=== PATIENT | male | born 1965 | race Hispanic/Latino ===

== ENCOUNTER 2019-01-12 23:48 | Inpatient (IN) | payer OTHER ==
[2019-01-13] MEDS ORDERED: Acetaminophen 500 MG TAB ONE (00:06)
[2019-01-13] MEDS ORDERED: Piperacillin/Tazobactam 4.5 GM VIAL ONE (00:37)
[2019-01-13 00:56] LABS: ALT (SGPT) 28 U/L (8-55); AST (SGOT) 43 U/L (5-34); Albumin 2.7 g/dL (3.5-5.0); Alkaline Phosphatase 117 U/L (40-110); Anion Gap 14 mmol/L (10-20); BUN (Urea Nitrogen) 31 mg/dL (8.4-25.7); Bilirubin, Total 1.8 mg/dL (0.2-1.2); Calc. Creatinine Clearance 0 mL/min (70-130); Calcium 7.1 mg/dL (7.8-10.44); Carbon Dioxide 17 mmol/L (22-29); Chloride 91 mmol/L (98-107); Estimated GFR-MDRD 68; Globulin 3.1 g/dL (2.4-3.5); Glucose 376 mg/dL (70-105); Potassium 4.1 mmol/L (3.5-5.1); Protein, Total 5.8 g/dL (6.0-8.3)
[2019-01-13 01:00] LABS: Sodium 118 mmol/L (136-145)
[2019-01-13 01:04] LABS: Hemoglobin 10.2 g/dL (14.0-18.0); Mean Corpuscular Volume 82.7 fL (78.0-98.0); Red Blood Cell (RBC) Count 3.67 mill/uL (4.70-6.10); White Blood Cell (WBC) Count 4.9 thou/uL (4.8-10.8)
[2019-01-13 01:18] LABS: #Lymphocytes 0.1 thou/uL (1.20-3.40); #Monocytes 0.4 thou/uL (0.11-0.59); #Neutrophils 4.4 thou/uL (1.40-6.50); %Basophils 0.1 % (0.0-1.0); %Eosinophils 0.2 % (0.0-10.0); %Lymphocytes 2.8 % (21.0-51.0); %Monocytes 7.5 % (0.0-10.0); %Neutrophils 89.4 % (42.0-75.0); Mean Corpuscular HGB CONC 33.5 g/dL (32.0-36.0); Mean Corpuscular Hemoglobin 27.7 pg (27.0-31.0); Mean Platelet Volume 11.6 fL (7.4-10.4); Platelet Count 32 thou/uL (130-400); Platelet Morphology Comment Appears Decreased; RBC Distribution Width 15.3 % (11.5-14.5)
[2019-01-13 01:51] LABS: Bacteria/HPF None Seen HPF (None Seen); Bilirubin Negative (Negative); Blood, Urine 2+ (Negative); Clarity Clear (Clear); Glucose, Urine (Dipstick) Greater than 1000 mg/dL (Negative); Leukocyte 500 Leu/uL (Negative); Nitrite Negative (Negative); Protein, Urine (Dipstick) Negative (Neg-Trace); RBC/HPF 0-3 HPF (0-3); Squamous Epithelial None Seen HPF (0-3); Urobilinogen Normal mg/dL (Less than 2); WBC/HPF Greater than 50 HPF (0-3)
[2019-01-13] MEDS ORDERED: Dextrose 5% in Water 1,000 ML IV PRN (04:12)
[2019-01-13] MEDS ORDERED: Dextrose 50% Abboject 50 ML SYRINGE SLOW IVP PRN (04:12)
[2019-01-13 05:01] LABS: Hemoglobin A1c 10.7 % (4.0-6.0)
[2019-01-13] MEDS ORDERED: HumaLOG 300 UNITS/3 ML VIAL ONE (05:04)
[2019-01-13 05:06] LABS: Anion Gap 11 mmol/L (10-20); BUN (Urea Nitrogen) 26 mg/dL (8.4-25.7); Calc. Creatinine Clearance 0 mL/min (70-130); Carbon Dioxide 18 mmol/L (22-29); Chloride 96 mmol/L (98-107); Estimated GFR-MDRD 76; Glucose 346 mg/dL (70-105); Potassium 3.9 mmol/L (3.5-5.1); Sodium 121 mmol/L (136-145)
[2019-01-13] MEDS ORDERED: HumaLOG 300 UNITS/3 ML VIAL SC SCH (05:30)
--- NOTE | 2019-01-13 06:20 | HP ---
CHIEF COMPLAINT: Multiple complaints, right hip pain, fevers and chills. HISTORY OF PRESENT ILLNESS: The patient is a 53-year-old male, with a history of liver cancer, in current treatment with metastasis to the lung, diabetes who presents to the hospital with multiple complaints. The patient states that for the past 6 months to 7 months his blood sugars have been out of control. He furthermore states that he has not been eating very much and losing a lot of weight, because he is afraid that if he eats his sugars will continue to rise. The patient stated that couple days ago, he was trying to exercise so that his sugars would improve. He stated that he was sitting somewhere where he started feeling having fevers and chills, so he leaned on his right hip and with his legs crossed for about 5 hour sitting. The patient stated after that he started complaining of right hip pain. He states that he has been having chills and subjective fevers. The patient denies any diarrhea, any nausea, and vomiting. He states he has been drinking a lot of water. He also complains of pain around his right collarbone area. Denies any falls. The patient states that he has been diagnosed with liver cancer and this has been ongoing treatment for the past 2 years. Initially, he had chemoembolization followed with oral chemotherapy to control the spreading of his tumor. The patient stated that initially his liver cancer had spread to his lungs; however after the oral chemotherapy that had improved. The patient then stated that due to the growth of his liver tumor, they decided to go with chemotherapy that would enhance his immune system to fight against his liver cancer. The patient stated that he did 4 months of that and had a repeat scan done last month, however, he does not know the results of it. PAST MEDICAL HISTORY: He has a history of diabetes, hypertension, Hepatitis C and also liver cancer. PAST SURGICAL HISTORY: He denies any surgical history. SOCIAL HISTORY: He denies any alcohol use, drug use, or smoking history. He is a full code and lives in residential. FAMILY HISTORY: No history of heart disease or stroke. REVIEW OF SYSTEMS: All negative except the ones mentioned above in the HPI. ALLERGIES: HE IS ALLERGIC TO INTERFERON. MEDICATIONS: I do not have a list. However, he does take NPH 10 units twice daily. PHYSICAL EXAMINATION: VITAL SIGNS: Are as of the following; temperature of 98.1, 24, 99% on room air, pain is 10, which was at right hip, pulse of 86, 98/54. GENERAL: He is awake, alert, and oriented x3. Does appear dehydrated. HEENT: Mucous membranes appear very dehydrated. No jaundice noted. Sclera is not icteric. CV: S1 and S2 present. No murmurs, rubs, or gallops. LUNGS: Clear to auscultation. No rhonchi or wheezes noted. ABDOMEN: Soft. Bowel sounds are present x2. Nontender. EXTREMITY: No edema. Pedal pulses are present x2. MUSCULOSKELETAL: He does have pain on the lateral aspect of his right hip, which is reproducible upon palpation. Chest wall, he does have pain upon palpation to just around the collarbone area. Mild erythema is noted. Otherwise appears pretty stable. He does have multiple tattooing all over. NEUROVASCULAR: No focal deficits noted. SKIN: No cuts, lesions or bruises noted. LABORATORY RESULTS: As of the following; WBCs of 4.9, hemoglobin of 10.2, hematocrit of 30.4, platelets of 32. His neutrophils are 89.4. No bandemia is noted. His ESR is 43. Chemistry, initial sodium was 118, repeat was 121, BUN of 31, creatinine of 1.13. His sugar was 276. His gap was 14. His CRP was 20. His urine did not indicate any acute significance except for the sugar being greater than a 1000. He did have a CT of abdomen and pelvis and a chest x-ray and per ER, there was no abscess or any abnormalities noted on the CT of abdomen and pelvis except for the liver mass. His chest x-ray does not does not show any acute abnormalities either. ASSESSMENT AND PLAN: The patient is a very pleasant 53-year-old male, who is an inmate, who presents to the hospital with multiple complaints. 1. Possible sepsis. The patient does have a low blood pressure, however, this could be secondary to his underlying liver disease. He also has elevated lactic acidosis, which could also be secondary to his underlying liver disease. The patient in the ER was noted for fever per the ER doc. We will start him on broad-spectrum antibiotics. However, unclear source. Blood cultures have been done. Urine microbiology has been sent. CT abdomen pelvis did not show any acute abnormalities. I will order him some pain medications for his right hip area. 2. Hyponatremia. This is most likely secondary to his elevated sugars. Also, patient has not been eating very much. This could also be secondary to dehydration and also secondary to a low- solute. I will check a serum osmolality on him and his sodium has improved dramatically from his baseline. We will continue to monitor. 3. Diabetes. We will check a hemoglobin A1c and also put him on sliding scale and scheduled insulin. 4. Liver cancer. The patient has been having ongoing treatment. He feels tired and he does not want to undergo treatment anymore, however we will defer that to him and [facility] doctors. 5. Thrombocytopenia. Again, this is most likely secondary to his underlying liver disease. 6. Deep venous thrombosis prophylaxis. We will put the patient on some sequential compression devices. Job ID: [id number]
[2019-01-13] MEDS: Sodium Chloride 0.9% 1,000 ML IV SCH ×4 (06:57→17:54)
[2019-01-13] MEDS: Piperacillin/Tazobactam 3.375 GM in Sodium Chloride 0.9% 100 ML IVPB SCH ×4 (06:58→23:53)
[2019-01-13] MEDS: HumaLOG 300 UNITS/3 ML VIAL SC SCH ×3 (08:57→17:48)
[2019-01-13] MEDS: Acetaminophen 325 MG TAB PO PRN ×2 (09:04→18:03)
--- NOTE | 2019-01-13 09:12 | RAD ---
RADIOGRAPH CHEST 1 VIEW: DATE: 01/13/2019 HISTORY: 53-year-old male with fever, chills, and cough. FINDINGS: There are no airspace densities, pulmonary edema, pneumothorax, or cardiomegaly. The lateral costophr enic angles are sharp. IMPRESSION: No acute cardiopulmonary findings.
[2019-01-13 09:24] LABS: Lactic Acid 4.6 mmol/L (0.5-2.2)
[2019-01-13] MEDS ORDERED: ISOVUE-370 76%-LOCM 1 ML ONE (09:53)
[2019-01-13] MEDS: Insulin Glargine 10 UNITS in Pre-Filled Syringe 1 EACH SC SCH ×2 (09:59→21:16)
--- NOTE | 2019-01-13 10:03 | CT ---
PRELIMINARY REPORT/[facility]/EMERGENCY AFTER HOURS PROCEDURE: PROCEDURE INFORMATION: Exam: CT Abdomen And Pelvis With Contrast Exam date and time: 01/13/2019 1:22 AM Clinical history: 53 years old, male; Patient HX: Er 2. M53 w/ HX of dm and cirrhosis presents to the ED for evaluation of fever, chills, and right hip pain onset 4 days ago. PT also reports a mild coug h and ble soreness. TECHNIQUE: Imaging protocol: Computed tomography of the abdomen and pelvis with intravenous contrast. COMPARISON: No relevant prior studies available. FINDINGS: Lungs: Dependent atelectasis in both lung bases. Liver: Hepatic cirrhosis. 8 cm mass in the posterior right lobe of the liver is worrisome for primary hepatocellular carcinoma. Gallbladder and bile ducts: Gallbladder is contracted with gallstones in its lumen versus calcified r emnant of prior cholecystectomy. Pancreas: Normal. No ductal dilation. Spleen: Splenomegaly. Adrenals: Normal. No mass. Kidneys and ureters: Normal. No hydronephrosis. Stomach and bowel: No bowel wall thickening or intestinal obstruction. Appendix: Normal appendix. Intraperitoneal space: No pneumoperitoneum or abscess. Trace volume ascites in the left paracolic gut ter. Vasculature: Splenorenal varices. Lymph nodes: Unremarkable. No enlarged lymph nodes. Bladder: Unremarkable as visualized. Reproductive: Unremarkable as visualized. Bones/joints: Unremarkable. No acute fracture. Soft tissues: Unremarkable. IMPRESSION: 1. Hepatic cirrhosis. 8 cm mass in the posterior right lobe of the liver is worrisome for primary hep atocellular carcinoma. 2. Splenomegaly. Thank you for allowing us to participate in the care of your patient. Dictated and Authenticated by: Marquis Jefferson MD 01/13/2019 1:47 AM Central Time ([place] & [place]) FINAL REPORT CT ABDOMEN AND PELVIS WITH CONTRAST: INDICATION: Cirrhosis, diabetes. FINDINGS: Splenomegaly. Portal hypertension with multiple varices. Liver shows evidence of cirrhosis with irr egular margin. There is a hypodense heterogeneous mass in the posterior right liver worrisome for neoplasm. I am in agreement with the preliminary report.
--- NOTE | 2019-01-13 11:09 | PDOC.HOSPP ---
- Subjective Encounter Date: 01/13/19 Encounter Time: 10:00 Subjective: Right hip pain.. - Objective Vital Signs & Weight: Vital Signs (12 hours) Temp Pulse Resp BP Pulse Ox 01/13/19 07:25 100.1 F H 98 18 108/66 94 L Weight Weight 169 lb Result Diagrams: 01/13/19 00:30 01/13/19 04:31 Additional Labs: Accuchecks 01/13/19 04:59 POC Glucose 371 H Hospitalist ROS - Medication Medications: Active Medications Generic Name Dose Route Start Last Admin Trade Name Freq PRN Reason Stop Dose Admin Acetaminophen 650 mg 01/13/19 04:08 01/13/19 09:04 Tylenol PO 650 mg Q4H PRN Administration Headache/Fever/Mild Pain (1-3) Insulin Glargine 10 units/ 0.1 mls @ 0 mls/hr 01/13/19 09:00 01/13/19 09:59 Miscellaneous Medication SC 0.1 mls QAM EAN Administration Piperacillin Sod/Tazobactam 100 mls @ 200 mls/hr 01/13/19 06:00 01/13/19 06: 58 Sod 3.375 gm/ Sodium Chloride IVPB 100 mls Q6HR EAN Administration Insulin Human Lispro 6 units 01/13/19 08:00 01/13/19 08:57 Humalog SC 6 units TID-WM EAN Administration - Exam Eye: anicteric sclera Neck: no JVD Heart: RRR Respiratory: CTAB Gastrointestinal: soft, non-tender Extremities: no edema Neurological: no weakness Psychiatric: flat affect Hosp A/P (1) Sepsis Code(s): A41.9 - SEPSIS, UNSPECIFIED ORGANISM Status: Acute Plan: On antibiotics.. f/u cultures.. (2) Liver cancer Code(s): C22.9 - MALIG NEOPLASM OF LIVER, NOT SPECIFIED PRIMARY OR SEC Status: Acute Plan: Oncology consulted.. (3) Diabetes Code(s): E11.9 - TYPE 2 DIABETES MELLITUS WITHOUT COMPLICATIONS Status: Acute Plan: on sliding scale.. (4) Hyponatremia Code(s): E87.1 - HYPO-OSMOLALITY AND HYPONATREMIA Status: Acute Plan: etiology unsure ?liver disease, dehydration.. Cosult Nephrology (5) Thrombocytopenia Code(s): D69.6 - THROMBOCYTOPENIA, UNSPECIFIED Status: Acute Plan: Due to liver disease Vs sepsis - Plan May need hip MRI..
[2019-01-13] MEDS: Morphine 2 MG/ML SYRINGE SLOW IVP PRN ×2 (12:35→17:53)
[2019-01-13] MEDS: Vancomycin HCl 1 GM in Premix Bag 1 BAG IVPB SCH ×2 (12:35→22:17)
[2019-01-13] MEDS: HumaLOG 300 UNITS/3 ML VIAL SC PRN ×3 (12:36→21:16)
[2019-01-13 20:16] LABS: Anion Gap 12 mmol/L (10-20); BUN (Urea Nitrogen) 19 mg/dL (8.4-25.7); Calc. Creatinine Clearance 101 mL/min (70-130); Calcium 7.4 mg/dL (7.8-10.44); Carbon Dioxide 15 mmol/L (22-29); Chloride 99 mmol/L (98-107); Estimated GFR-MDRD 87; Glucose 325 mg/dL (70-105); Potassium 3.4 mmol/L (3.5-5.1); Sodium 123 mmol/L (136-145)
[2019-01-13] MEDS ORDERED: Vancomycin HCl 1 GM in Premix Bag 1 BAG IVPB SCH (23:59)
[2019-01-14] MEDS: Sodium Chloride 0.9% 1,000 ML IV SCH ×2 (01:35→04:51)
[2019-01-14] MEDS: Morphine 2 MG/ML SYRINGE SLOW IVP PRN ×2 (04:46→20:36)
[2019-01-14] MEDS: Acetaminophen 325 MG TAB PO PRN ×2 (04:47→20:36)
[2019-01-14] MEDS: Piperacillin/Tazobactam 3.375 GM in Sodium Chloride 0.9% 100 ML IVPB SCH ×2 (05:26→12:50)
[2019-01-14] MEDS: HumaLOG 300 UNITS/3 ML VIAL SC PRN ×3 (05:29→17:47)
[2019-01-14 06:27] LABS: Band 4 % (5-11); Hemoglobin 9.4 g/dL (14.0-18.0); Hypochromia SLIGHT = 6-15 cells (100X) (0-5/hpf); Lymphocytes 1 % (21-51); MDiff Complete? YES; Mean Corpuscular HGB CONC 32.9 g/dL (32.0-36.0); Mean Corpuscular Hemoglobin 27.1 pg (27.0-31.0); Mean Corpuscular Volume 82.2 fL (78.0-98.0); Mean Platelet Volume 10.1 fL (7.4-10.4); Monocytes 2 % (0-10); Neutrophil 93 % (42-75); Platelet Count 30 thou/uL (130-400); Platelet Morphology Comment Appears Decreased; RBC Distribution Width 15.5 % (11.5-14.5); Red Blood Cell (RBC) Count 3.46 mill/uL (4.70-6.10); White Blood Cell (WBC) Count 3.5 thou/uL (4.8-10.8)
[2019-01-14] MEDS: HumaLOG 300 UNITS/3 ML VIAL SC SCH ×3 (08:24→17:46)
[2019-01-14] MEDS: Insulin Glargine 10 UNITS in Pre-Filled Syringe 1 EACH SC SCH ×2 (08:26→20:33)
--- NOTE | 2019-01-14 09:51 | CON ---
DATE OF CONSULTATION: 01/13/2019 REASON FOR CONSULT: Hyponatremia. REASON FOR ADMISSION: Fever, chills, hip pain. HISTORY OF PRESENT ILLNESS: A 53-year-old male with history of liver cancer with metastases, diabetes came to the hospital with above complaints hyponatremia. He was started on IV fluids. The patient reports not eating very well. His sodium was 118 and improved to 121 with hydration. Nephrology consulted. The patient denies any chest pain or palpitation. Reports sugar being high, it is in 300 range. PAST MEDICAL HISTORY: Positive for diabetes, hypertension, hep C, liver cancer. PAST SURGICAL HISTORY: None. HOME MEDICATIONS: Not available. ALLERGIES: INTERFERON. SOCIAL HISTORY: No smoking, alcohol or drugs. FAMILY HISTORY: No history of kidney disease. REVIEW OF SYSTEMS: CONSTITUTIONAL: Negative for weight loss or gain, ability to conduct usual activities. SKIN: Negative for rash, itching. EYES: Negative for double vision, pain. ENT/MOUTH: Negative for nose bleeding, neck stiffness, pain, tenderness. CARDIOVASCULAR: Negative for palpitations, dyspnea on exertion, orthopnea. RESPIRATORY: Negative for shortness of breath, wheezing, cough, hemoptysis, fever or night sweats. GASTROINTESTINAL: Negative for poor appetite, abdominal pain, heartburn, nausea, vomiting, constipation, or diarrhea. GENITOURINARY: Negative for urgency, frequency, dysuria, nocturia. MUSCULOSKELETAL: Negative for pain, swelling. NEUROLOGIC/PSYCHIATRIC: Negative for anxiety, depression. ALLERGY/IMMUNOLOGIC: Negative for skin rash, bleeding tendency. Rest are negative. PHYSICAL EXAMINATION: GENERAL: This is a well-built male, in no apparent distress. VITAL SIGNS: Temperature 101.3, pulse 90, respirations 18, blood pressure 118/63. HEENT: Atraumatic, normocephalic. Oral mucosa is moist. NECK: Supple. CV: S1-S2 heard. Rate and rhythm regular. RESPIRATORY: Clear to auscultation. GASTROINTESTINAL: Abdomen is soft. MUSCULOSKELETAL: No tenderness. No edema. DERMATOLOGIC: No skin rash. NEUROLOGIC: Alert and awake and oriented X3. LABORATORY DATA: Hemoglobin is 10.2, potassium is 3.9, sodium is 121, BUN is 26, creatinine is 1.02. ASSESSMENT AND PLAN: 1. Hyponatremia, most likely volume depletion and is getting corrected with IV fluids. Continue IV fluids and monitor. 2. Acidosis, mild. 3. Lactic acidosis. 4. Hyperglycemia. 5. Anemia. 6. Chronic obstructive pulmonary disease . 7. Continue hydration and monitor renal function. 8. We will recheck sodium now. Thank you for the consult. Job ID: [id number]
[2019-01-14 10:04] LABS: Anion Gap 10 mmol/L (10-20); BUN (Urea Nitrogen) 14 mg/dL (8.4-25.7); Calc. Creatinine Clearance 114 mL/min (70-130); Calcium 7.3 mg/dL (7.8-10.44); Carbon Dioxide 19 mmol/L (22-29); Chloride 101 mmol/L (98-107); Estimated GFR-MDRD Greater than 90; Glucose 328 mg/dL (70-105); Potassium 3.1 mmol/L (3.5-5.1); Sodium 127 mmol/L (136-145)
[2019-01-14 10:11] LABS: Vancomycin, Trough 6.2 ug/mL
--- NOTE | 2019-01-14 10:33 | PRG ---
DATE OF SERVICE: 01/14/2019 SUBJECTIVE: A 53-year-old gentleman, being seen for hyponatremia. The patient denied any nausea, vomiting, or chest pain. OBJECTIVE: See above. The patient is awake, alert. VITAL SIGNS: Afebrile, pulse 75, breathing 16, and blood pressure 107/68. GENERAL APPEARANCE AND MENTAL STATUS: Fair. HEAD/NECK: Normocephalic. Atraumatic. EYES: EOMI. No deformity. EARS: Clear. No ulcers. NOSE: Intact. No lesions. MOUTH: Clear. No discharge. THROAT: Clear. No exudate. LUNGS: Clear. No crackles. CARDIAC: S1, S2. No rub. ABDOMEN: Benign. Bowel sounds positive. GENITALIA/RECTUM: Gregorio absent. BACK/EXTREMITIES: Edema 0+. NEUROLOGICAL: Alert and motor intact. SKIN: LYMPHATICS: LABORATORY DATA: Reviewed. ASSESSMENT AND PLAN: 1. Hyponatremia. I will order labs. 2. Hypokalemia. Recheck sodium. 3. Chronic obstructive pulmonary disease, stage I, stable. Job ID: [id number]
[2019-01-14] MEDS: Vancomycin HCl 1.5 GM in Sodium Chloride 0.9% 250 ML 300 ML IVPB SCH ×2 (11:27→23:55)
[2019-01-14 13:14] LABS: Sodium 131 mmol/L (136-145)
--- NOTE | 2019-01-14 13:22 | PDOC.HOSPP ---
- Subjective Encounter Date: 01/14/19 Encounter Time: 13:19 Subjective: pain R pelvis - Objective Vital Signs & Weight: Vital Signs (12 hours) Temp Pulse Resp BP Pulse Ox 01/14/19 08:20 100 01/14/19 07:37 98.6 F 108 H 18 107/68 100 01/14/19 06:30 99.7 F H 100 20 01/14/19 04:00 100.9 F H 109 H 20 143/78 H 98 Weight Weight 169 lb I&O: 01/13/19 01/14/19 01/15/19 06:59 06:59 06:59 Intake Total 2848 500 Output Total 1020 Balance 1828 500 Result Diagrams: 01/14/19 05:39 01/14/19 12:38 Additional Labs: Accuchecks 01/14/19 01/14/19 01/13/19 11:54 04:18 20:40 POC Glucose 318 H 337 H 339 H 01/13/19 01/13/19 15:51 11:08 POC Glucose 376 H 373 H Hospitalist ROS - Medication Medications: Active Medications Generic Name Dose Route Start Last Admin Trade Name Freq PRN Reason Stop Dose Admin Acetaminophen 650 mg 01/13/19 04:08 01/14/19 04:47 Tylenol PO 650 mg Q4H PRN Administration Headache/Fever/Mild Pain (1-3) Insulin Glargine 10 units/ 0.1 mls @ 0 mls/hr 01/13/19 21:00 01/13/19 21:16 Miscellaneous Medication SC 0.1 mls HS EAN Administration Insulin Glargine 10 units/ 0.1 mls @ 0 mls/hr 01/13/19 09:00 01/14/19 08:26 Miscellaneous Medication SC 0.1 mls QAM EAN Administration Vancomycin HCl 1.5 gm/ Sodium 300 mls @ 200 mls/hr 01/14/19 11:00 01/14/19 11 :27 Chloride IVPB 300 mls 1100,2300 EAN Administration Insulin Human Lispro 0 units 01/13/19 04:12 01/14/19 12:38 Humalog SC 8 unit .MODERATE SLIDING SC PRN Administration Moderate Correctional Scale Insulin Human Lispro 6 units 01/13/19 08:00 01/14/19 12:48 Humalog SC 6 units TID-WM EAN Administration Morphine Sulfate 2 mg 01/13/19 11:38 01/14/19 04:46 Morphine SLOW IVP 2 mg Q6H PRN Administration Severe Pain (7-10) Sodium Chloride 10 ml 01/13/19 21:00 01/14/19 08:27 Flush - Normal Saline IVF Not Given Q12HR EAN - Exam Neck: no JVD Heart: RRR, no murmur Respiratory: CTAB Gastrointestinal: soft, normal bowel sounds Extremities: no edema Hosp A/P (1) Sepsis Code(s): A41.9 - SEPSIS, UNSPECIFIED ORGANISM Status: Acute Qualifiers: Sepsis type: methicillin susceptible Staphylococcus aureus Sepsis acute organ dysfunction status: without acute organ dysfunction Qualified Code(s): A41.01 - Sepsis due to Methicillin susceptible Staphylococcus aureus (2) Bacteremia due to Gram-positive bacteria Code(s): R78.81 - BACTEREMIA Status: Acute (3) Cirrhosis of liver Code(s): K74.60 - UNSPECIFIED CIRRHOSIS OF LIVER Status: Chronic Qualifiers: Ascites presence: unspecified (4) Pancytopenia Code(s): D61.818 - OTHER PANCYTOPENIA Status: Acute (5) DM type 2 (diabetes mellitus, type 2) Status: Acute Qualifiers: Diabetes mellitus senior care insulin use: with marine oil terminal superintendent use Diabetes mellitus complication status: with hyperglycemia Qualified Code(s): E11.65 - Type 2 diabetes mellitus with hyperglycemia; Z79.4 - detention (current) use of insulin (6) Hyponatremia Code(s): E87.1 - HYPO-OSMOLALITY AND HYPONATREMIA Status: Acute - Plan cont iv vancomycin ECHO cardiagram, pelvic XR
[2019-01-14] MEDS ORDERED: Dextrose 5% in Water 1,000 ML IV SCH (14:30)
--- NOTE | 2019-01-14 15:41 | RAD ---
Exam: One view pelvis HISTORY: Pain Comparison none FINDINGS: Sacroiliac joints are patent and symmetric Sacral alar are preserved Intact bony pelvis. Contour of both femoral heads are maintained. Symmetric hip joint spaces. IMPRESSION: Unremarkable AP pelvic radiograph
[2019-01-14] MEDS: Sodium Chloride 0.45% 1,000 ML IV SCH (15:44)
[2019-01-14 17:45] LABS: Anion Gap 10 mmol/L (10-20); BUN (Urea Nitrogen) 12 mg/dL (8.4-25.7); Calc. Creatinine Clearance 117 mL/min (70-130); Calcium 7.6 mg/dL (7.8-10.44); Carbon Dioxide 19 mmol/L (22-29); Chloride 103 mmol/L (98-107); Estimated GFR-MDRD Greater than 90; Glucose 317 mg/dL (70-105); Potassium 3.2 mmol/L (3.5-5.1); Sodium 129 mmol/L (136-145)
[2019-01-14] MEDS: Propranolol HCl 20 MG TAB PO SCH (20:32)
[2019-01-14] MEDS: NPH, Human Insulin Isophane 300 UNIT/3 ML VIAL SC SCH (20:33)
[2019-01-15] MEDS: HumaLOG 300 UNITS/3 ML VIAL SC PRN ×3 (06:02→16:45)
[2019-01-15] MEDS: Lisinopril 10 MG TAB PO SCH (09:32)
[2019-01-15] MEDS: NPH, Human Insulin Isophane 300 UNIT/3 ML VIAL SC SCH ×2 (09:33→21:47)
[2019-01-15] MEDS: Insulin Glargine 10 UNITS in Pre-Filled Syringe 1 EACH SC SCH ×2 (09:33→21:46)
[2019-01-15] MEDS: Aspirin 81 mg Enteric Coated Tablet PO SCH (09:33)
[2019-01-15] MEDS: HumaLOG 300 UNITS/3 ML VIAL SC SCH ×3 (09:33→16:45)
[2019-01-15] MEDS: Propranolol HCl 20 MG TAB PO SCH ×2 (09:33→21:46)
[2019-01-15 10:28] LABS: Anion Gap 11 mmol/L (10-20); BUN (Urea Nitrogen) 11 mg/dL (8.4-25.7); Calc. Creatinine Clearance 116 mL/min (70-130); Calcium 7.7 mg/dL (7.8-10.44); Carbon Dioxide 20 mmol/L (22-29); Chloride 102 mmol/L (98-107); Estimated GFR-MDRD Greater than 90; Glucose 279 mg/dL (70-105); Potassium 3.1 mmol/L (3.5-5.1); Sodium 130 mmol/L (136-145)
--- NOTE | 2019-01-15 10:40 | PRG ---
DATE OF SERVICE: 01/15/2019 SUBJECTIVE: A 53-year-old gentleman being seen for hyponatremia. The patient denied nausea, vomiting or chest pain. OBJECTIVE: See above. The patient is awake, alert. VITAL SIGNS: Pulse 94, breathing 16, blood pressure 130/79. GENERAL APPEARANCE AND MENTAL STATUS: Fair. HEAD/NECK: Normocephalic. Atraumatic. EYES: EOMI. No deformity. EARS: Clear. No ulcers. NOSE: Intact. No lesions. MOUTH: Clear. No discharge. THROAT: Clear. No exudate. LUNGS: Clear. No crackles. CARDIAC: S1, S2. No rub. ABDOMEN: Benign. Bowel sounds positive. GENITALIA/RECTUM: Gregorio absent. BACK/EXTREMITIES: Edema 0+. NEUROLOGICAL: Alert and motor intact. SKIN: LYMPHATICS: LABORATORY DATA: Reviewed. ASSESSMENT AND PLAN: 1. Chronic kidney disease stage 1, stable. 2. Hyponatremia, stable. We will recheck sodium again today. Lab has been ordered. 3. Hypertension, stable. Medication based on GFR appropriate. Job ID: [id number]
--- NOTE | 2019-01-15 11:44 | PDOC.HOSPP ---
- Subjective Encounter Date: 01/15/19 Encounter Time: 11:43 Subjective: still has pain R hip, shoulder - Objective Vital Signs & Weight: Vital Signs (12 hours) Temp Pulse Resp BP BP Pulse Ox 01/15/19 11:00 99.8 F H 88 18 102/65 100 01/15/19 08:25 98.4 F 94 24 H 143/88 H 101 H 01/15/19 04:00 99.6 F 95 20 130/79 97 01/15/19 00:53 98.7 F 85 20 104/66 96 Weight Admit Weight 169 lb Weight 169 lb I&O: 01/14/19 01/15/19 01/16/19 06:59 06:59 06:59 Intake Total 2848 4299 Output Total 1020 2250 Balance 1828 9 Result Diagrams: 01/14/19 05:39 01/15/19 09:21 Additional Labs: Accuchecks 01/15/19 01/14/19 01/14/19 04:59 20:32 16:43 POC Glucose 277 H 317 H 291 H 01/14/19 11:54 POC Glucose 318 H Hospitalist ROS - Medication Medications: Active Medications Generic Name Dose Route Start Last Admin Trade Name Freq PRN Reason Stop Dose Admin Acetaminophen 650 mg 01/13/19 04:08 01/14/19 20:36 Tylenol PO 650 mg Q4H PRN Administration Headache/Fever/Mild Pain (1-3) Aspirin 81 mg 01/15/19 09:00 01/15/19 09:33 Ecotrin PO 81 mg DAILY EAN Administration Insulin Glargine 10 units/ 0.1 mls @ 0 mls/hr 01/13/19 21:00 01/14/19 20:33 Miscellaneous Medication SC 0.1 mls HS EAN Administration Insulin Glargine 10 units/ 0.1 mls @ 0 mls/hr 01/13/19 09:00 01/15/19 09:33 Miscellaneous Medication SC 0.1 mls QAM EAN Administration Vancomycin HCl 1.5 gm/ Sodium 300 mls @ 200 mls/hr 01/14/19 11:00 01/14/19 23 :55 Chloride IVPB 300 mls 1100,2300 EAN Administration Sodium Chloride 1,000 mls @ 50 mls/hr 01/14/19 15:30 01/14/19 15:44 1/2 Normal Saline IV 1,000 mls .Q20H EAN Administration Insulin Human Lispro 0 units 01/13/19 04:12 01/15/19 06:02 Humalog SC 6 unit .MODERATE SLIDING SC PRN Administration Moderate Correctional Scale Insulin Human Lispro 6 units 01/13/19 08:00 01/15/19 09:33 Humalog SC 6 units TID-WM EAN Administration Insulin Human NPH 20 unit 01/14/19 21:00 01/14/19 20:33 Humulin N SC 20 units QPM EAN Administration Insulin Human NPH 20 unit 01/15/19 09:00 01/15/19 09:33 Humulin N SC 20 unit QAM EAN Administration Lactulose 20 gm 01/14/19 21:00 01/15/19 09:33 Lactulose PO 20 gm BID EAN Administration Lisinopril 10 mg 01/15/19 09:00 01/15/19 09:32 Zestril PO 10 mg DAILY EAN Administration Morphine Sulfate 2 mg 01/13/19 11:38 01/14/19 20:36 Morphine SLOW IVP 2 mg Q6H PRN Administration Severe Pain (7-10) Propranolol HCl 20 mg 01/14/19 21:00 01/15/19 09:33 Inderal PO 20 mg BID EAN Administration Sodium Chloride 10 ml 01/13/19 21:00 01/15/19 09:33 Flush - Normal Saline IVF Not Given Q12HR EAN - Exam General Appearance: awake alert Neck: no JVD Heart: no murmur Respiratory: CTAB, no wheezes Gastrointestinal: soft, non-tender, normal bowel sounds Extremities: no edema Extremities - other findings: erythema, tenderness over R clavicle Skin: normal turgor Hosp A/P (1) Sepsis Code(s): A41.9 - SEPSIS, UNSPECIFIED ORGANISM Status: Acute Qualifiers: Sepsis type: methicillin susceptible Staphylococcus aureus Sepsis acute organ dysfunction status: without acute organ dysfunction Qualified Code(s): A41.01 - Sepsis due to Methicillin susceptible Staphylococcus aureus (2) Bacteremia due to Gram-positive bacteria Code(s): R78.81 - BACTEREMIA Status: Acute (3) Cirrhosis of liver Code(s): K74.60 - UNSPECIFIED CIRRHOSIS OF LIVER Status: Chronic Qualifiers: Ascites presence: unspecified (4) Pancytopenia Code(s): D61.818 - OTHER PANCYTOPENIA Status: Acute (5) DM type 2 (diabetes mellitus, type 2) Status: Acute Qualifiers: Diabetes mellitus adjunct faculty for medical terminology insulin use: with fpc use Diabetes mellitus complication status: with hyperglycemia Qualified Code(s): E11.65 - Type 2 diabetes mellitus with hyperglycemia; Z79.4 - adjunct faculty for medical terminology (current) use of insulin (6) Hyponatremia Code(s): E87.1 - HYPO-OSMOLALITY AND HYPONATREMIA Status: Acute - Plan cont iv vancomycin ECHO cardiagram pending No lesion obvious on pelvic film consult ID for assistance in primary site and length of tx
[2019-01-15] MEDS: Vancomycin HCl 1.5 GM in Sodium Chloride 0.9% 250 ML 300 ML IVPB SCH (11:48)
[2019-01-15] MEDS: Acetaminophen 325 MG TAB PO PRN ×2 (11:49→21:46)
[2019-01-15] MEDS: Sodium Chloride 0.45% 1,000 ML IV SCH (16:00)
--- NOTE | 2019-01-15 19:03 | CON ---
DATE OF CONSULTATION: 01/15/2019 REASON FOR CONSULTATION: Bacteremia. HISTORY OF PRESENT ILLNESS: A 53-year-old, who is an inmate at [facility] and has a history of longstanding hepatitis C, treated with interferon and then cured with one of newer direct antiviral drugs as well as hepatocellular carcinoma for the past 2 years, treated with various agents including I believe checkpoint inhibitor agent, liver cirrhosis, and also a history of skin abscesses, which were reportedly secondary to Staphylococcus aureus, who has had a 1-week history of general malaise, fever, chills, body aches, particularly in the right hip region and also in the collarbone, right side. He denied any headaches. No vomiting. No hematemesis. No diarrhea. No genitourinary symptoms. No other joint symptoms. PAST MEDICAL HISTORY: Includes hypertension; type 2 diabetes; chronic hep C, treated and cured with direct antiviral drugs; hepatocellular carcinoma, on chemotherapy, having completed a second course recently. SOCIAL HISTORY: He is an inmate at [facility]. He used drugs intravenously in the past. Never smoker. ALLERGIES: INTERFERON, IT IS NOT A TRUE ALLERGIES, IT IS MORE OF AN ADVERSE REACTION. CURRENT MEDICATIONS: 1. Tylenol. 2. Ecotrin. 3. Glucagon. 4. Insulin. 5. Lactulose. 6. Lisinopril. 7. Morphine. 8. Inderal. 9. Vancomycin. PHYSICAL EXAMINATION: VITAL SIGNS: T-max 102.4 recently, now it is 99.8. BP 140/88, pulse 94, respirations 18 to 24, O2 saturation 100. SKIN: With no abnormalities noted. The patient has a peripheral IV access. No Gregorio catheter. No lymphadenopathy. HEENT: Ocular movements conjugate. Sclerae are white. Pupils are equal. Oral cavity without remarkable findings. NECK: Supple. LUNGS: Symmetric, clear breath sounds. HEART: S1 and S2, regular rate. ABDOMEN: Soft with no ascites. No organomegaly. MUSCULOSKELETAL: There is marked tenderness in the right sternoclavicular joint area. There is tenderness in the right hip region, lateral aspect, although range of motion of the hip itself does not elicit any tenderness. The sacroiliac region appears to be okay. He is able to move extremities with some limitations. His pulses are 1+ in dorsalis pedis. Plantar responses are flexor. NEUROLOGIC: He is awake, oriented, follows commands. Speech appears to be normal. LABORATORY DATA: White cell count 4.9 and 3.5, hemoglobin 10.2, MCV 82, platelets 32,000. 89% neutrophils. On arrival, sodium 118, chloride 91, creatinine 1.13, bilirubin 1.8, AST 43, albumin 2.7. Current sodium 121. Urinalysis, greater than 50 wbc's. Two sets of blood cultures with MRSA, the ROBYN for vancomycin is 1. The organism is resistant to clindamycin. Urine culture with Staphylococcus aureus with pending susceptibilities, 50,000 to 75,000 CFUs per mL. IMAGING STUDIES: We have an abdomen and pelvis CT, which shows an 8 cm mass in the posterior right lobe, which corresponds to his hepatocellular carcinoma. He also has splenomegaly, some atelectasis in both lung bases. Chest x-ray with no acute cardiopulmonary findings. Pelvis x-ray with no findings of significance. ASSESSMENT: 1. Chronic hepatitis C, treated and cured. 2. Hepatocellular carcinoma, right lobe, now for 2 years on chemotherapy. 3. History of Staphylococcal skin abscesses in the past. 4. Bacteremia secondary to methicillin-resistant Staphylococcus aureus. 5. Positive urine cultures. 6. Right-sided sternoclavicular joint infection. DISCUSSION: The differential diagnosis includes endocarditis with metastatic spread to the right sternoclavicular joint and some element in the right hip space area, maybe a muscle, sacroiliitis not ruled out. The urinary tract appears to be involved secondarily from the bacteremia. Pneumonia or other intraabdominal inflammatory process is not likely. No evidence of spine involvement at this point. Continue vancomycin, target trough 15 mcg. He will need PICC line placement and protracted treatment. Echocardiogram, may need a ESTRADA, and may need an MRI of the pelvis depending on the clinical response to antimicrobial therapy in relationship to the right hip site. It does not appear that he has right hip joint involvement in view of the clinical examination findings. Job ID: [id number]
[2019-01-15] MEDS: Morphine 2 MG/ML SYRINGE SLOW IVP PRN (21:50)
[2019-01-15 22:21] LABS: Vancomycin, Trough 11.7 ug/mL
[2019-01-15] MEDS: Vancomycin HCl 1.75 GM in Sodium Chloride 0.9% 500 ML IVPB SCH (23:33)
[2019-01-16] MEDS: HumaLOG 300 UNITS/3 ML VIAL SC PRN (05:45)
[2019-01-16] MEDS: Sodium Chloride 0.45% 1,000 ML IV SCH ×2 (06:10→18:13)
[2019-01-16] MEDS: Aspirin 81 mg Enteric Coated Tablet PO SCH (08:41)
[2019-01-16] MEDS: Propranolol HCl 20 MG TAB PO SCH ×2 (08:41→21:14)
[2019-01-16] MEDS: Lisinopril 10 MG TAB PO SCH (08:41)
[2019-01-16] MEDS: Morphine 2 MG/ML SYRINGE SLOW IVP PRN ×2 (08:49→18:13)
[2019-01-16] MEDS: HumaLOG 300 UNITS/3 ML VIAL SC SCH ×3 (08:50→18:09)
[2019-01-16] MEDS: Insulin Glargine 10 UNITS in Pre-Filled Syringe 1 EACH SC SCH ×2 (08:50→21:14)
[2019-01-16] MEDS: NPH, Human Insulin Isophane 300 UNIT/3 ML VIAL SC SCH ×2 (08:51→21:15)
[2019-01-16] MEDS: Vancomycin HCl 1.75 GM in Sodium Chloride 0.9% 500 ML IVPB SCH ×2 (10:25→22:45)
--- NOTE | 2019-01-16 13:13 | PDOC.HOSPP ---
- Subjective Encounter Date: 01/16/19 Encounter Time: 13:11 Subjective: no fever, pains improved - Objective Vital Signs & Weight: Vital Signs (12 hours) Temp Pulse Resp BP BP BP Pulse Ox 01/16/19 11:00 98.4 F 88 20 107/65 93 L 01/16/19 08:41 156/81 H 01/16/19 08:38 95 01/16/19 08:00 97.4 F L 92 18 156/81 H 95 01/16/19 04:05 98.2 F 78 18 102/58 L 94 L Weight Admit Weight 169 lb Weight 169 lb I&O: 01/15/19 01/16/19 01/17/19 06:59 06:59 06:59 Intake Total 4299 3340 Output Total 2250 1750 Balance 2049 1590 Result Diagrams: 01/14/19 05:39 01/15/19 09:21 Additional Labs: Accuchecks 01/16/19 01/16/19 01/15/19 11:28 05:47 20:18 POC Glucose 236 H 194 H 272 H 01/15/19 16:13 POC Glucose 315 H Radiology Reviewed by me: No (ECHO no valve lesions) Hospitalist ROS - Medication Medications: Active Medications Generic Name Dose Route Start Last Admin Trade Name Freq PRN Reason Stop Dose Admin Acetaminophen 650 mg 01/13/19 04:08 01/15/19 21:46 Tylenol PO 650 mg Q4H PRN Administration Headache/Fever/Mild Pain (1-3) Aspirin 81 mg 01/15/19 09:00 01/16/19 08:41 Ecotrin PO 81 mg DAILY EAN Administration Insulin Glargine 10 units/ 0.1 mls @ 0 mls/hr 01/13/19 21:00 01/15/19 21:46 Miscellaneous Medication SC 0.1 mls HS EAN Administration Insulin Glargine 10 units/ 0.1 mls @ 0 mls/hr 01/13/19 09:00 01/16/19 08:50 Miscellaneous Medication SC 0.1 mls QAM EAN Administration Sodium Chloride 1,000 mls @ 50 mls/hr 01/14/19 15:30 01/16/19 06:10 1/2 Normal Saline IV Not Given .Q20H EAN Vancomycin HCl 1.75 gm/ Sodium 500 mls @ 250 mls/hr 01/15/19 23:00 01/16/19 10:25 Chloride IVPB 500 mls 1100,2300 EAN Administration Insulin Human Lispro 0 units 01/13/19 04:12 01/16/19 05:45 Humalog SC 2 unit .MODERATE SLIDING SC PRN Administration Moderate Correctional Scale Insulin Human Lispro 6 units 01/13/19 08:00 01/16/19 11:59 Humalog SC 6 units TID-WM EAN Administration Insulin Human NPH 20 unit 01/14/19 21:00 01/15/19 21:47 Humulin N SC 20 units QPM EAN Administration Insulin Human NPH 20 unit 01/15/19 09:00 01/16/19 08:51 Humulin N SC 20 unit QAM EAN Administration Lactulose 20 gm 01/14/19 21:00 01/16/19 08:44 Lactulose PO Not Given BID EAN Lisinopril 10 mg 01/15/19 09:00 01/16/19 08:41 Zestril PO 10 mg DAILY EAN Administration Morphine Sulfate 2 mg 01/13/19 11:38 01/16/19 08:49 Morphine SLOW IVP 2 mg Q6H PRN Administration Severe Pain (7-10) Propranolol HCl 20 mg 01/14/19 21:00 01/16/19 08:41 Inderal PO 20 mg BID EAN Administration Sodium Chloride 10 ml 01/13/19 21:00 01/16/19 08:42 Flush - Normal Saline IVF 10 ml Q12HR EAN Administration Sodium Chloride 10 ml 01/13/19 09:57 01/15/19 14:33 Flush - Normal Saline IVF 10 ml PRN PRN Administration Saline Flush - Exam ENT - other findings: erythema over R clavicle persists Heart: RRR, no murmur Respiratory: CTAB Gastrointestinal: soft, normal bowel sounds Extremities: no cyanosis Hosp A/P (1) Sepsis Code(s): A41.9 - SEPSIS, UNSPECIFIED ORGANISM Status: Acute Qualifiers: Sepsis type: methicillin susceptible Staphylococcus aureus Sepsis acute organ dysfunction status: without acute organ dysfunction Qualified Code(s): A41.01 - Sepsis due to Methicillin susceptible Staphylococcus aureus (2) Bacteremia due to Gram-positive bacteria Code(s): R78.81 - BACTEREMIA Status: Acute (3) Cirrhosis of liver Code(s): K74.60 - UNSPECIFIED CIRRHOSIS OF LIVER Status: Chronic Qualifiers: Ascites presence: unspecified (4) Pancytopenia Code(s): D61.818 - OTHER PANCYTOPENIA Status: Acute (5) DM type 2 (diabetes mellitus, type 2) Status: Acute Qualifiers: Diabetes mellitus watermelon harvesting supervisor insulin use: with watermelon harvesting supervisor use Diabetes mellitus complication status: with hyperglycemia Qualified Code(s): E11.65 - Type 2 diabetes mellitus with hyperglycemia; Z79.4 - meterman (current) use of insulin (6) Hyponatremia Code(s): E87.1 - HYPO-OSMOLALITY AND HYPONATREMIA Status: Acute - Plan cont iv vancomycin ECHO cardiagram no lesions on valves PICC line ordered
--- NOTE | 2019-01-16 15:13 | SPC ---
Ultrasound and Fluoroscopic guided left upper extremity single lumen PICC placement: 06/19/2018 HISTORY: Need for central vascular access. FINDINGS: Informed consent obtained prior to the procedure. Left antecubital fossa prepped and draped in normal sterile fashion. Skin overlying the basilic vein anesthetized with 1% buffered lidocaine. With direct sonographic guid ance, vascular access is obtained via the basilic vein and an 0.018in wire was advanced to the cavoatrial junction. Intravascular length is calculated at 43.5 cm and of the PICC is cut accordingly . Needle is removed and replaced with a peel-away sheath. The PICC was advanced over the wire. Wire and peel-away sheath were removed. The tip of the catheter overlies the cavoatrial junction. The port flushes well and the catheter is ready for use. Exposure data: 0 minutes of fluoroscopic time 6 mGy per centimeter squared IMPRESSION: Successful ultrasound guided placement of a left upper extremity PICC.
--- NOTE | 2019-01-16 17:16 | PRG ---
DATE OF SERVICE: 01/16/2019 SUBJECTIVE: Pain in the right pelvic area, right side of the pelvis is improved and no dyspnea. Still difficult to move around. No respiratory symptoms. No diarrhea. He is able to void in the urinal. Awake, alert, and oriented. Mild tenderness in the right sternoclavicular joint. OBJECTIVE: LUNGS: Symmetric air entry. HEART: S1 and S2. Regular rate. ABDOMEN: Soft. Mild tenderness in the right side of the pelvis/trochanteric bursal area. EXTREMITIES: Able to move extremities with some limitation. LABORATORY DATA: White cell count 3.5, hemoglobin 9.4, and platelets 30,000. Creatinine 0.79. We will need to repeat his blood cultures to monitor response to treatment. Echocardiogram, no vegetations. Technical quality of the test was acceptable. ASSESSMENT AND DISCUSSION: Chronic hep C treated and cured hepatocellular carcinoma of the right lobe, now for 2 years on chemotherapy. Prior history of staphylococcal skin abscesses and now bacteremia with methicillin-resistant Staphylococcus aureus. Urine cultures result of the bacteremia is not unlikely a primary infection. In the right-sided sternoclavicular joint infection and some inflammatory process in the right side of the pelvic area, still having intermittent low-grade temperature elevation and I would not perform a transesophageal echocardiogram for the time being unless his blood cultures remain positive in the repeat assays submitted. In that case, I would definitely order a transesophageal echocardiogram. I do not think we need to image the pelvis or the chest with a CT scan just yet. Job ID: [id number]
[2019-01-16] MEDS ORDERED: Heparin 1,000 UNITS/ML VIAL ONE (18:00)
[2019-01-17] MEDS: Acetaminophen 325 MG TAB PO PRN ×2 (00:20→20:03)
[2019-01-17] MEDS: Sodium Chloride 0.45% 1,000 ML IV SCH ×2 (04:21→20:51)
[2019-01-17] MEDS: Insulin Glargine 10 UNITS in Pre-Filled Syringe 1 EACH SC SCH ×2 (08:04→20:49)
[2019-01-17] MEDS: Propranolol HCl 20 MG TAB PO SCH ×2 (08:04→20:50)
[2019-01-17] MEDS: Aspirin 81 mg Enteric Coated Tablet PO SCH (08:04)
[2019-01-17] MEDS: Lisinopril 10 MG TAB PO SCH (08:04)
[2019-01-17] MEDS: NPH, Human Insulin Isophane 300 UNIT/3 ML VIAL SC SCH ×2 (08:05→20:50)
[2019-01-17] MEDS: HumaLOG 300 UNITS/3 ML VIAL SC SCH ×3 (08:05→16:56)
[2019-01-17] MEDS: Vancomycin HCl 1.75 GM in Sodium Chloride 0.9% 500 ML IVPB SCH ×2 (10:53→23:13)
--- NOTE | 2019-01-17 12:23 | PDOC.HOSPP ---
- Subjective Encounter Date: 01/17/19 Encounter Time: 12:21 Subjective: no fever, etc - Objective Vital Signs & Weight: Vital Signs (12 hours) Temp Pulse Resp BP BP BP Pulse Ox 01/17/19 08:04 156/81 H 01/17/19 08:00 97 01/17/19 07:19 98.1 F 73 18 157/62 H 97 01/17/19 04:00 97.7 F 77 20 100/51 L 96 Weight Admit Weight 169 lb Weight 169 lb I&O: 01/16/19 01/17/19 01/18/19 06:59 06:59 06:59 Intake Total 3340 2430 240 Output Total 1750 1350 Balance 1590 1080 240 Result Diagrams: 01/14/19 05:39 01/15/19 09:21 Additional Labs: Accuchecks 01/17/19 01/17/19 01/16/19 11:52 05:23 21:02 POC Glucose 198 H 136 H 111 H 01/16/19 16:13 POC Glucose 132 H Hospitalist ROS - Medication Medications: Active Medications Generic Name Dose Route Start Last Admin Trade Name Freq PRN Reason Stop Dose Admin Acetaminophen 650 mg 01/13/19 04:08 01/17/19 00:20 Tylenol PO 650 mg Q4H PRN Administration Headache/Fever/Mild Pain (1-3) Aspirin 81 mg 01/15/19 09:00 01/17/19 08:04 Ecotrin PO 81 mg DAILY EAN Administration Insulin Glargine 10 units/ 0.1 mls @ 0 mls/hr 01/13/19 21:00 01/16/19 21:14 Miscellaneous Medication SC 0.1 mls HS EAN Administration Insulin Glargine 10 units/ 0.1 mls @ 0 mls/hr 01/13/19 09:00 01/17/19 08:04 Miscellaneous Medication SC 0.1 mls QAM EAN Administration Sodium Chloride 1,000 mls @ 50 mls/hr 01/14/19 15:30 01/17/19 04:21 1/2 Normal Saline IV Not Given .Q20H EAN Vancomycin HCl 1.75 gm/ Sodium 500 mls @ 250 mls/hr 01/15/19 23:00 01/17/19 10:53 Chloride IVPB 500 mls 1100,2300 EAN Administration Insulin Human Lispro 0 units 01/13/19 04:12 01/16/19 05:45 Humalog SC 2 unit .MODERATE SLIDING SC PRN Administration Moderate Correctional Scale Insulin Human Lispro 6 units 01/13/19 08:00 01/17/19 11:50 Humalog SC 6 units TID-WM EAN Administration Insulin Human NPH 20 unit 01/14/19 21:00 01/16/19 21:15 Humulin N SC 20 units QPM EAN Administration Insulin Human NPH 20 unit 01/15/19 09:00 01/17/19 08:05 Humulin N SC 20 unit QAM EAN Administration Lactulose 20 gm 01/14/19 21:00 01/17/19 08:04 Lactulose PO 20 gm BID EAN Administration Lisinopril 10 mg 01/15/19 09:00 01/17/19 08:04 Zestril PO 10 mg DAILY EAN Administration Morphine Sulfate 2 mg 01/13/19 11:38 01/16/19 18:13 Morphine SLOW IVP 2 mg Q6H PRN Administration Severe Pain (7-10) Propranolol HCl 20 mg 01/14/19 21:00 01/17/19 08:04 Inderal PO 20 mg BID EAN Administration Sodium Chloride 10 ml 01/13/19 21:00 01/17/19 08:11 Flush - Normal Saline IVF Not Given Q12HR EAN Sodium Chloride 10 ml 01/13/19 09:57 01/15/19 14:33 Flush - Normal Saline IVF 10 ml PRN PRN Administration Saline Flush - Exam ENT: dry oral mucosa Neck: no JVD Neck - other findings: tenderness over R clavicle markedly improved Heart: RRR, no murmur Respiratory: CTAB Gastrointestinal: soft, normal bowel sounds Extremities: no edema Hosp A/P (1) Sepsis Code(s): A41.9 - SEPSIS, UNSPECIFIED ORGANISM Status: Acute Qualifiers: Sepsis type: methicillin susceptible Staphylococcus aureus Sepsis acute organ dysfunction status: without acute organ dysfunction Qualified Code(s): A41.01 - Sepsis due to Methicillin susceptible Staphylococcus aureus (2) Bacteremia due to Gram-positive bacteria Code(s): R78.81 - BACTEREMIA Status: Acute (3) Cirrhosis of liver Code(s): K74.60 - UNSPECIFIED CIRRHOSIS OF LIVER Status: Chronic Qualifiers: Ascites presence: unspecified (4) Pancytopenia Code(s): D61.818 - OTHER PANCYTOPENIA Status: Acute (5) DM type 2 (diabetes mellitus, type 2) Status: Acute Qualifiers: Diabetes mellitus terminal manager insulin use: with fdc use Diabetes mellitus complication status: with hyperglycemia Qualified Code(s): E11.65 - Type 2 diabetes mellitus with hyperglycemia; Z79.4 - ocean transportation intermediary (current) use of insulin (6) Hyponatremia Code(s): E87.1 - HYPO-OSMOLALITY AND HYPONATREMIA Status: Acute - Plan cont iv vancomycin cm to pravin moving back to [facility] for iv antibx
[2019-01-17 13:22] LABS: Anion Gap 10 mmol/L (10-20); BUN (Urea Nitrogen) 29 mg/dL (8.4-25.7); Calc. Creatinine Clearance 50 mL/min (70-130); Calcium 7.5 mg/dL (7.8-10.44); Carbon Dioxide 19 mmol/L (22-29); Chloride 104 mmol/L (98-107); Estimated GFR-MDRD 39; Glucose 167 mg/dL (70-105); Potassium 3.1 mmol/L (3.5-5.1); Sodium 130 mmol/L (136-145)
[2019-01-17 13:43] LABS: Anisocytosis SLIGHT = 6-15 cells (100X) (0-5/hpf); Band 25 % (5-11); Eosinophils 1 % (0-10); Lymphocytes 2 % (21-51); MDiff Complete? YES; Mean Corpuscular HGB CONC 32.2 g/dL (32.0-36.0); Mean Corpuscular Hemoglobin 26.6 pg (27.0-31.0); Mean Corpuscular Volume 82.6 fL (78.0-98.0); Mean Platelet Volume 9.3 fL (7.4-10.4); Monocytes 1 % (0-10); Neutrophil 71 % (42-75); Platelet Count 89 thou/uL (130-400); Platelet Morphology Comment Appears Decreased; RBC Distribution Width 16.8 % (11.5-14.5); Red Blood Cell (RBC) Count 4.14 mill/uL (4.70-6.10); Toxic Granulation SLIGHT; White Blood Cell (WBC) Count 16.9 thou/uL (4.8-10.8)
[2019-01-17] MEDS: Morphine 2 MG/ML SYRINGE SLOW IVP PRN (20:58)
[2019-01-17 23:01] LABS: Vancomycin, Trough 48.9 ug/mL
[2019-01-18] MEDS: Lisinopril 10 MG TAB PO SCH (08:19)
[2019-01-18] MEDS: Propranolol HCl 20 MG TAB PO SCH ×2 (08:20→20:28)
[2019-01-18] MEDS: Aspirin 81 mg Enteric Coated Tablet PO SCH (08:20)
[2019-01-18] MEDS: Morphine 2 MG/ML SYRINGE SLOW IVP PRN (08:21)
[2019-01-18] MEDS: HumaLOG 300 UNITS/3 ML VIAL SC SCH ×3 (08:23→17:31)
[2019-01-18] MEDS: Insulin Glargine 10 UNITS in Pre-Filled Syringe 1 EACH SC SCH ×2 (08:24→20:28)
[2019-01-18] MEDS: NPH, Human Insulin Isophane 300 UNIT/3 ML VIAL SC SCH ×2 (08:24→20:31)
[2019-01-18] MEDS ORDERED: Vancomycin HCl 1.75 GM in Sodium Chloride 0.9% 500 ML IVPB SCH (11:00)
[2019-01-18 11:43] LABS: #Eosinphils 0.2 thou/uL (0.0-0.7); #Lymphocytes 0.8 thou/uL (1.20-3.40); #Monocytes 1.1 thou/uL (0.11-0.59); #Neutrophils 14.7 thou/uL (1.40-6.50); %Eosinophils 1.1 % (0.0-10.0); %Lymphocytes 4.5 % (21.0-51.0); %Monocytes 6.4 % (0.0-10.0); %Neutrophils 87.9 % (42.0-75.0); Hemoglobin 10.6 g/dL (14.0-18.0); Mean Corpuscular HGB CONC 32.6 g/dL (32.0-36.0); Mean Corpuscular Hemoglobin 26.9 pg (27.0-31.0); Mean Corpuscular Volume 82.5 fL (78.0-98.0); Mean Platelet Volume 9.6 fL (7.4-10.4); Platelet Count 63 thou/uL (130-400); RBC Distribution Width 17.3 % (11.5-14.5); Red Blood Cell (RBC) Count 3.95 mill/uL (4.70-6.10); White Blood Cell (WBC) Count 16.8 thou/uL (4.8-10.8)
[2019-01-18 11:57] LABS: Anion Gap 13 mmol/L (10-20); BUN (Urea Nitrogen) 40 mg/dL (8.4-25.7); Calc. Creatinine Clearance 34 mL/min (70-130); Calcium 7.1 mg/dL (7.8-10.44); Carbon Dioxide 16 mmol/L (22-29); Chloride 104 mmol/L (98-107); Estimated GFR-MDRD 25; Glucose 208 mg/dL (70-105); Potassium 3.5 mmol/L (3.5-5.1); Sodium 129 mmol/L (136-145)
[2019-01-18] MEDS ORDERED: Sodium Chloride 0.45% 1,000 ML IV SCH (17:30)
--- NOTE | 2019-01-18 17:36 | PDOC.HOSPP ---
- Subjective Subjective: Seen and examined. Patient breathing well on room air. Patient states that he is urinating well and it is clear/johns colored. Discussed SILVIO with patient. Patient does have chronic arthritis type pains that are currently were secondary to change in the weather. All questions answered in detail. - Objective Vital Signs & Weight: Vital Signs (12 hours) Temp Pulse Resp BP BP Pulse Ox 01/18/19 09:13 97 01/18/19 08:00 97 01/18/19 07:16 98.2 F 80 16 110/61 91 L 01/18/19 05:38 98.7 F 81 20 122/75 98 Weight Admit Weight 169 lb Weight 169 lb I&O: 01/17/19 01/18/19 01/19/19 06:59 06:59 06:59 Intake Total 2430 840 Output Total 1350 Balance 1080 840 Result Diagrams: 01/18/19 11:30 01/18/19 11:30 Additional Labs: Accuchecks 01/18/19 01/18/19 01/18/19 16:11 12:01 05:39 POC Glucose 208 H 209 H 121 H 01/17/19 19:55 POC Glucose 199 H Radiology Reviewed by me: Yes (CT abd/ pelvis) Hospitalist ROS - Review of Systems All other systems reviewed; all pertinent +/- noted in HPI/Subj - Medication Medications: Active Medications Generic Name Dose Route Start Last Admin Trade Name Freq PRN Reason Stop Dose Admin Acetaminophen 650 mg 01/13/19 04:08 01/17/19 20:03 Tylenol PO 650 mg Q4H PRN Administration Headache/Fever/Mild Pain (1-3) Aspirin 81 mg 01/15/19 09:00 01/18/19 08:20 Ecotrin PO 81 mg DAILY EAN Administration Insulin Glargine 10 units/ 0.1 mls @ 0 mls/hr 01/13/19 21:00 01/17/19 20:49 Miscellaneous Medication SC 0.1 mls HS EAN Administration Insulin Glargine 10 units/ 0.1 mls @ 0 mls/hr 01/13/19 09:00 01/18/19 08:24 Miscellaneous Medication SC 0.1 mls QAM EAN Administration Insulin Human Lispro 0 units 01/13/19 04:12 01/16/19 05:45 Humalog SC 2 unit .MODERATE SLIDING SC PRN Administration Moderate Correctional Scale Insulin Human Lispro 6 units 01/13/19 08:00 01/18/19 17:31 Humalog SC 6 units TID-WM EAN Administration Insulin Human NPH 20 unit 01/14/19 21:00 01/17/19 20:50 Humulin N SC 20 units QPM EAN Administration Insulin Human NPH 20 unit 01/15/19 09:00 01/18/19 08:24 Humulin N SC 20 unit QAM EAN Administration Lactulose 20 gm 01/14/19 21:00 01/18/19 08:27 Lactulose PO Not Given BID EAN Morphine Sulfate 2 mg 01/13/19 11:38 01/18/19 08:21 Morphine SLOW IVP 2 mg Q6H PRN Administration Severe Pain (7-10) Propranolol HCl 20 mg 01/14/19 21:00 01/18/19 08:20 Inderal PO 20 mg BID EAN Administration Sodium Chloride 10 ml 01/13/19 21:00 01/18/19 08:28 Flush - Normal Saline IVF Not Given Q12HR EAN Sodium Chloride 10 ml 01/13/19 09:57 01/15/19 14:33 Flush - Normal Saline IVF 10 ml PRN PRN Administration Saline Flush - Exam General Appearance: NAD, awake alert Eye: PERRL ENT: normocephalic atraumatic, moist mucosa Neck: supple, symmetric, no lymphadenopathy Heart: no murmur, no gallops, no rubs Respiratory: CTAB, no wheezes Gastrointestinal: soft, non-tender, no guarding, no rigidity Extremities: no edema Skin: no lesions, no rashes Neurological: cranial nerve grossly intact, no weakness Psychiatric: normal affect, A&O x 3 Hosp A/P (1) Bacteremia due to Gram-positive bacteria Code(s): R78.81 - BACTEREMIA Status: Acute (2) DM type 2 (diabetes mellitus, type 2) Status: Chronic Qualifiers: Diabetes mellitus terminal computer operator insulin use: with terminal computer operator use Diabetes mellitus complication status: with hyperglycemia Qualified Code(s): E11.65 - Type 2 diabetes mellitus with hyperglycemia; Z79.4 - alf (current) use of insulin (3) Diabetes Code(s): E11.9 - TYPE 2 DIABETES MELLITUS WITHOUT COMPLICATIONS Status: Chronic (4) Hyponatremia Code(s): E87.1 - HYPO-OSMOLALITY AND HYPONATREMIA Status: Resolved (5) Liver cancer Code(s): C22.9 - MALIG NEOPLASM OF LIVER, NOT SPECIFIED PRIMARY OR SEC Status: Chronic (6) Sepsis Code(s): A41.9 - SEPSIS, UNSPECIFIED ORGANISM Status: Resolved Qualifiers: Sepsis type: methicillin susceptible Staphylococcus aureus Sepsis acute organ dysfunction status: without acute organ dysfunction Qualified Code(s): A41.01 - Sepsis due to Methicillin susceptible Staphylococcus aureus (7) Thrombocytopenia Code(s): D69.6 - THROMBOCYTOPENIA, UNSPECIFIED Status: Chronic (8) Cirrhosis of liver Code(s): K74.60 - UNSPECIFIED CIRRHOSIS OF LIVER Status: Chronic Qualifiers: Ascites presence: unspecified - Plan Plan: medical unit infectious disease consultation, recommendations patient nephrology consultation, recommendations appreciated oncology consultation, recommendations appreciated will need outpatient follow- up for liver mass patient with acute kidney injury on vancomycin, discontinue vancomycin MRSA in urine and blood with sensitivity to vancomycin and Linezolid will start Linezolid IV fluid resuscitation renal ultrasound to R/o obstruction further plan of care per nephrology as needed lactulose chronic therapy to lower ammonia and avoid hepatic encephalopathy continue other home medications as able
--- NOTE | 2019-01-18 18:47 | ULT ---
Exam: Bilateral renal ultrasound HISTORY: Acute kidney insufficiency COMPARISON: None FINDINGS: Limited evaluation due to bowel gas. There is any fluid superior to the bladder and in the right upper quadrant Right kidney: Normal cortical echotexture. No hydronephrosis. Right kidney measurements: 10.9 x 7.1 x 7.0 cm. Left kidney: Normal cortical echotexture. No hydronephrosis Left kidney measurements 14.2 x 7.1 x 7.0 cm. Urinary bladder: Prevoid volume is 192 mL IMPRESSION: 1. No hydronephrosis. 2. Free fluid in the abdomen and pelvis as described above.
[2019-01-18] MEDS: Linezolid 600 MG in Premix Bag 1 BAG IVPB SCH (20:27)
[2019-01-18] MEDS: Sodium Chloride 0.45% 1,000 ML IV SCH (20:50)
--- NOTE | 2019-01-18 21:20 | RAD ---
CHEST ONE VIEW: 01/18/19 COMPARISON: 01/12/19 HISTORY: Wheezing. FINDINGS: Left sided PICC line terminates in the cavoatrial junction. Cardiac silhouette is enlarged. The pulmonary vessels are prominent. Patchy interstitial opacities th roughout the lung parenchyma with more focal opacification likely in the right lower lobe. IMPRESSION: Right lower lobe pneumonia. Additional diffuse interstitial infiltrates are suspected. Continued surv eillance is recommended. POS: OFF
[2019-01-19 05:27] LABS: Chloride 105 mmol/L (98-107); Potassium 3.4 mmol/L (3.5-5.1); Sodium 128 mmol/L (136-145)
[2019-01-19 05:28] LABS: Calcium 6.9 mg/dL (7.8-10.44); Glucose 111 mg/dL (70-105)
[2019-01-19 05:30] LABS: Carbon Dioxide 13 mmol/L (22-29)
[2019-01-19 05:32] LABS: Calc. Creatinine Clearance 29 mL/min (70-130); Estimated GFR-MDRD 20
[2019-01-19 05:33] LABS: BUN (Urea Nitrogen) 47 mg/dL (8.4-25.7)
[2019-01-19] MEDS: Sodium Chloride 0.45% 1,000 ML IV SCH (05:40)
[2019-01-19] MEDS: Acetaminophen 325 MG TAB PO PRN (05:43)
[2019-01-19 06:19] LABS: Anion Gap 13 mmol/L (10-20)
[2019-01-19] MEDS: HumaLOG 300 UNITS/3 ML VIAL SC SCH ×3 (08:40→16:33)
[2019-01-19] MEDS: Aspirin 81 mg Enteric Coated Tablet PO SCH (08:40)
[2019-01-19] MEDS: Propranolol HCl 20 MG TAB PO SCH ×2 (08:40→20:33)
[2019-01-19] MEDS: NPH, Human Insulin Isophane 300 UNIT/3 ML VIAL SC SCH ×3 (08:41→21:00)
[2019-01-19] MEDS: Linezolid 600 MG in Premix Bag 1 BAG IVPB SCH ×2 (08:41→20:31)
[2019-01-19] MEDS: Insulin Glargine 10 UNITS in Pre-Filled Syringe 1 EACH SC SCH ×2 (09:07→20:33)
[2019-01-19] MEDS ORDERED: Potassium Chloride 20 MEQ TAB PO SCH (10:30)
[2019-01-19] MEDS: Sodium Bicarbonate 50 MEQ in Sodium Chloride 0.9% 1,000 ML IV SCH ×2 (10:48→20:30)
--- NOTE | 2019-01-19 12:28 | ULT ---
Scrotal ultrasound: 01/19/2019 HISTORY: Nonspecific scrotal swelling TECHNIQUE: Multiplanar grayscale sonographic imaging of the scrotal contents with Doppler interrogati on of the testicles including color flow and spectral analysis FINDINGS: There is diffuse prominent nonspecific thickening of the scrotal wall suggesting nonspecifi c extensive edema. The right testicle measures 2.6 x 3.3 x 2.4 cm and demonstrates normal blood flow without evidence for mass. Right epididymal head measures 1.2 x 0.7 cm. Left testicle measures 2.1 x 3.0 x 2.3 cm and demonstrates normal blood flow without evidence for mas s. Left epididymal head measures 1.0 x 0.8 cm. There is a left sided varicocele. The epididymal head tail is mildly prominent on the right which could signify mild right-sided epidid ymitis in the proper clinical setting. IMPRESSION: Prominent nonspecific scrotal swelling. Mild prominence of the right epididymal tail as d etailed above. Left-sided varicocele.
[2019-01-19] MEDS: HumaLOG 300 UNITS/3 ML VIAL SC PRN (13:17)
--- NOTE | 2019-01-19 13:24 | PDOC.HOSPP ---
- Subjective Subjective: Seen and examined. Patient with worsening scrotal edema, ultrasound ordered and does not demonstrate any mass and there is normal blood flow. Positive for varicocele. Renal function continues to worsen. Patient states that he doesn't want to drink water, I encouraged him to drink extra water today. Nephrology on case. - Objective Vital Signs & Weight: Vital Signs (12 hours) Temp Pulse Resp BP BP Pulse Ox 01/19/19 07:59 97.6 F 79 18 108/64 96 01/19/19 06:32 84 20 93 L 01/19/19 04:00 98.2 F 84 20 100/58 L 93 L Weight Admit Weight 169 lb Weight 169 lb I&O: 01/18/19 01/19/19 01/20/19 06:59 06:59 06:59 Intake Total 840 1550 Balance 840 1550 Result Diagrams: 01/18/19 11:30 01/19/19 04:48 Additional Labs: Accuchecks 01/19/19 01/19/19 01/18/19 12:41 05:20 20:04 POC Glucose 182 H 131 H 311 H 01/18/19 16:11 POC Glucose 208 H Radiology Reviewed by me: Yes (US scrotum) Hospitalist ROS - Review of Systems All other systems reviewed; all pertinent +/- noted in HPI/Subj - Medication Medications: Active Medications Generic Name Dose Route Start Last Admin Trade Name Freq PRN Reason Stop Dose Admin Acetaminophen 650 mg 01/13/19 04:08 01/19/19 05:43 Tylenol PO 650 mg Q4H PRN Administration Headache/Fever/Mild Pain (1-3) Albuterol/Ipratropium 3 ml 01/18/19 20:49 01/18/19 21:18 Duoneb NEB 3 ml Q4H PRN Administration SOB &/or Wheezing Albuterol/Ipratropium 3 ml 01/19/19 01:00 01/19/19 06:32 Duoneb NEB 3 ml [id number] EAN Administration Aspirin 81 mg 01/15/19 09:00 01/19/19 08:40 Ecotrin PO 81 mg DAILY EAN Administration Insulin Glargine 10 units/ 0.1 mls @ 0 mls/hr 01/13/19 21:00 01/18/19 20:28 Miscellaneous Medication SC 0.1 mls HS EAN Administration Insulin Glargine 10 units/ 0.1 mls @ 0 mls/hr 01/13/19 09:00 01/19/19 09:07 Miscellaneous Medication SC 0.1 mls QAM EAN Administration Linezolid 600 mg/ Device 300 mls @ 150 mls/hr 01/18/19 21:00 01/19/19 08:41 IVPB 300 mls Q12HR EAN Administration Sodium Bicarbonate 50 meq/ 1,050 mls @ 100 mls/hr 01/19/19 09:45 01/19/19 10: 48 Sodium Chloride IV 1,050 mls .[id number] EAN Administration Insulin Human Lispro 0 units 01/13/19 04:12 01/16/19 05:45 Humalog SC 2 unit .MODERATE SLIDING SC PRN Administration Moderate Correctional Scale Insulin Human Lispro 6 units 01/13/19 08:00 01/19/19 08:40 Humalog SC 6 units TID-WM EAN Administration Insulin Human NPH 20 unit 01/14/19 21:00 01/18/19 20:31 Humulin N SC 20 units QPM EAN Administration Insulin Human NPH 20 unit 01/15/19 09:00 01/19/19 08:41 Humulin N SC 20 unit QAM EAN Administration Lactulose 20 gm 01/14/19 21:00 01/19/19 08:41 Lactulose PO 20 gm BID EAN Administration Morphine Sulfate 2 mg 01/13/19 11:38 01/18/19 08:21 Morphine SLOW IVP 2 mg Q6H PRN Administration Severe Pain (7-10) Propranolol HCl 20 mg 01/14/19 21:00 01/19/19 08:40 Inderal PO 20 mg BID EAN Administration Sodium Chloride 10 ml 01/13/19 21:00 01/19/19 08:36 Flush - Normal Saline IVF Not Given Q12HR EAN Sodium Chloride 10 ml 01/13/19 09:57 01/15/19 14:33 Flush - Normal Saline IVF 10 ml PRN PRN Administration Saline Flush - Exam General Appearance: NAD Eye: PERRL, anicteric sclera ENT: normocephalic atraumatic, moist mucosa Neck: supple, symmetric, no lymphadenopathy Heart: no murmur, no gallops, no rubs Respiratory: CTAB, no wheezes, no rales, no ronchi Gastrointestinal: soft, non-tender, non-distended, no guarding, no rigidity Gastrointestinal - other findings: - Diffuse scrotal and penile edema Extremities: 1+ LE edema Skin: no lesions, no rashes Neurological: cranial nerve grossly intact, no weakness Musculoskeletal: normal strength Psychiatric: normal affect, A&O x 3 Hosp A/P (1) SILVIO (acute kidney injury) Code(s): N17.9 - ACUTE KIDNEY FAILURE, UNSPECIFIED Status: Acute (2) Bacteremia due to Gram-positive bacteria Code(s): R78.81 - BACTEREMIA Status: Acute (3) DM type 2 (diabetes mellitus, type 2) Status: Chronic Qualifiers: Diabetes mellitus marine oil terminal superintendent insulin use: with usp use Diabetes mellitus complication status: with hyperglycemia Qualified Code(s): E11.65 - Type 2 diabetes mellitus with hyperglycemia; Z79.4 - intermediate manager (current) use of insulin (4) Diabetes Code(s): E11.9 - TYPE 2 DIABETES MELLITUS WITHOUT COMPLICATIONS Status: Chronic (5) Hyponatremia Code(s): E87.1 - HYPO-OSMOLALITY AND HYPONATREMIA Status: Resolved (6) Liver cancer Code(s): C22.9 - MALIG NEOPLASM OF LIVER, NOT SPECIFIED PRIMARY OR SEC Status: Chronic (7) Sepsis Code(s): A41.9 - SEPSIS, UNSPECIFIED ORGANISM Status: Resolved Qualifiers: Sepsis type: methicillin susceptible Staphylococcus aureus Sepsis acute organ dysfunction status: without acute organ dysfunction Qualified Code(s): A41.01 - Sepsis due to Methicillin susceptible Staphylococcus aureus (8) Thrombocytopenia Code(s): D69.6 - THROMBOCYTOPENIA, UNSPECIFIED Status: Chronic (9) Cirrhosis of liver Code(s): K74.60 - UNSPECIFIED CIRRHOSIS OF LIVER Status: Chronic Qualifiers: Ascites presence: unspecified (10) Varicocele Code(s): I86.1 - SCROTAL VARICES Status: Acute (11) Scrotal edema Code(s): N50.89 - OTHER SPECIFIED DISORDERS OF THE MALE GENITAL ORGANS Status : Acute - Plan Plan: medical unit infectious disease consultation, recommendations patient nephrology consultation, recommendations appreciated oncology consultation, recommendations appreciated will need outpatient follow- up for liver mass patient with acute kidney injury on vancomycin, discontinue vancomycin MRSA in urine and blood with sensitivity to vancomycin and Linezolid Continue Linezolid IV fluid resuscitation renal ultrasound ruled out obstruction Scrotal edema - US positive for vericocele, no mass, normal blood flow further plan of care per nephrology as needed lactulose chronic therapy to lower ammonia and avoid hepatic encephalopathy continue other home medications as able
[2019-01-19 13:57] LABS: Anion Gap 15 mmol/L (10-20); BUN (Urea Nitrogen) 50 mg/dL (8.4-25.7); Calc. Creatinine Clearance 26 mL/min (70-130); Calcium 7.5 mg/dL (7.8-10.44); Carbon Dioxide 14 mmol/L (22-29); Chloride 102 mmol/L (98-107); Estimated GFR-MDRD 18; Glucose 174 mg/dL (70-105); Potassium 3.5 mmol/L (3.5-5.1); Sodium 127 mmol/L (136-145)
[2019-01-19 14:07] LABS: Creatinine, Urine 150.26 mg/dL (63-166)
--- NOTE | 2019-01-19 14:44 | CON ---
DATE OF CONSULTATION: REASON FOR CONSULTATION: Elevated creatinine. HISTORY OF PRESENT ILLNESS: This is a 53-year-old gentleman seen earlier today with normal creatinine and acute kidney injury resolved, was noted to have a rise in creatinine. His creatinine has risen from 0.79 on January 15 to 3.18 today, so I was consulted. The patient has developed bacteremia as well as on vancomycin. The patient has developed edema all over including major scrotal edema. The patient was admitted last week. PAST MEDICAL HISTORY: Diabetes, hypertension, hepatitis C, and liver cancer. PAST SURGICAL HISTORY: None. SOCIAL HISTORY: No alcohol or drug use. FAMILY HISTORY: Negative for ESRD. ALLERGIES: REVIEWED. HOME MEDICATION: List reviewed. HOSPITAL MEDICATION: List reviewed. REVIEW OF SYSTEMS: A 15-point review of system was performed and negative except for positive noted above. PHYSICAL EXAMINATION: GENERAL: The patient is awake and alert. VITAL SIGNS: Afebrile, pulse 75, breathing 16, and blood pressure 108/64. GENERAL APPEARANCE AND MENTAL STATUS: Fair. HEAD/NECK: Normocephalic. Atraumatic. EYES: EOMI. No deformity. EARS: Clear. No ulcers. NOSE: Intact. No lesions. MOUTH: Clear. No discharge. THROAT: Clear. No exudate. LUNGS: Clear. No crackles. CARDIAC: S1, S2. No rub. ABDOMEN: Benign. Bowel sounds positive. GENITALIA/RECTUM: Scrotum has major edema. BACK/EXTREMITIES: 4+ edema. NEUROLOGICAL: Alert and motor intact. SKIN: LYMPHATICS: LABORATORY DATA: Labs show potassium 3.5. Bicarbonate 13. ASSESSMENT AND PLAN: 1. Acute kidney injury with chronic kidney disease. Continue hydration. Acute kidney injury could be due to postinfectious glomerulonephritis versus drug-induced acute interstitial nephritis. 2. Hypokalemia. We would recommend 40 mEq of potassium. 3. Metabolic acidosis. Continue bicarb drip. Overall prognosis is poor. Job ID: [id number]
[2019-01-19] MEDS: Sodium Bicarbonate Tab 325 MG TAB PO SCH ×2 (16:32→20:33)
[2019-01-20] MEDS: Sodium Bicarbonate 50 MEQ in Sodium Chloride 0.9% 1,000 ML IV SCH ×2 (00:30→09:08)
[2019-01-20 07:05] LABS: Anion Gap 13 mmol/L (10-20); BUN (Urea Nitrogen) 52 mg/dL (8.4-25.7); Calc. Creatinine Clearance 29 mL/min (70-130); Calcium 7.1 mg/dL (7.8-10.44); Carbon Dioxide 17 mmol/L (22-29); Chloride 102 mmol/L (98-107); Estimated GFR-MDRD 18; Glucose 168 mg/dL (70-105); Potassium 3.7 mmol/L (3.5-5.1); Sodium 128 mmol/L (136-145)
[2019-01-20] MEDS ORDERED: Linezolid 600 MG TAB PO SCH (09:00)
[2019-01-20] MEDS: Aspirin 81 mg Enteric Coated Tablet PO SCH (09:07)
[2019-01-20] MEDS: Sodium Bicarbonate Tab 325 MG TAB PO SCH ×3 (09:07→21:24)
[2019-01-20] MEDS: Insulin Glargine 10 UNITS in Pre-Filled Syringe 1 EACH SC SCH ×2 (09:07→21:24)
[2019-01-20] MEDS: HumaLOG 300 UNITS/3 ML VIAL SC SCH ×3 (09:07→16:17)
[2019-01-20] MEDS: NPH, Human Insulin Isophane 300 UNIT/3 ML VIAL SC SCH ×2 (09:07→21:25)
[2019-01-20] MEDS: Propranolol HCl 20 MG TAB PO SCH ×2 (09:07→21:24)
[2019-01-20] MEDS: Linezolid 600 MG in Premix Bag 1 BAG IVPB SCH ×2 (09:08→21:23)
--- NOTE | 2019-01-20 12:03 | PRG ---
DATE OF SERVICE: 01/20/2019 SUBJECTIVE: The patient is a 53-year-old gentleman, being seen for acute kidney injury with progressive rise in creatinine. OBJECTIVE: CONSTITUTIONAL: The patient is awake. VITAL SIGNS: Afebrile, pulse rate 82, breathing 16, and blood pressure 142/84. GENERAL APPEARANCE AND MENTAL STATUS: Fair. HEAD/NECK: Normocephalic. Atraumatic. EYES: EOMI. No deformity. EARS: Clear. No ulcers. NOSE: Intact. No lesions. MOUTH: Clear. No discharge. THROAT: Clear. No exudate. LUNGS: Clear. No crackles. CARDIAC: S1, S2. No rub. ABDOMEN: Benign. Bowel sounds positive. GENITALIA/RECTUM: Gregorio absent. BACK/EXTREMITIES: Edema 0+. NEUROLOGICAL: Alert and motor intact. SKIN: LYMPHATICS: LABORATORY DATA: Hemoglobin 10.6. Creatinine is 3.6. ASSESSMENT AND PLAN: 1. Acute kidney injury with chronic kidney disease, multifactorial. No indication for dialysis. 2. Hypertension, stable. 3. Anemia, stable. 4. Hypokalemia, stable. 5. Metabolic acidosis, stable. Plan daily lab checks. Job ID: [id number]
[2019-01-20] MEDS: HumaLOG 300 UNITS/3 ML VIAL SC PRN ×2 (12:04→16:17)
[2019-01-20] MEDS: Chloraseptic Spray 180 ml Bottle PO PRN (12:06)
--- NOTE | 2019-01-20 15:36 | PDOC.HOSPP ---
- Subjective Subjective: Seen and examined. Still scrotal edema, I again educated him on elevating scrotum underneath a towel. Nursing staff states that they did elevate the scrotum earlier and the patient is forgetful and forgets to leave it elevated. Renal function plateauing discuss case with nephrology and nursing staff. - Objective Vital Signs & Weight: Vital Signs (12 hours) Temp Pulse Resp BP Pulse Ox 01/20/19 12:30 82 16 01/20/19 08:37 98.2 F 82 24 H 142/84 H 96 01/20/19 07:04 85 18 95 01/20/19 04:08 87 22 H 95 01/20/19 04:00 97.6 F 86 22 H 151/84 H 94 L Weight Admit Weight 169 lb Weight 194 lb I&O: 01/19/19 01/20/19 01/21/19 06:59 06:59 06:59 Intake Total 1550 3200 Balance 1550 3200 Result Diagrams: 01/18/19 11:30 01/20/19 06:30 Additional Labs: Accuchecks 01/20/19 01/20/19 01/19/19 11:44 05:23 20:27 POC Glucose 263 H 158 H 144 H 01/19/19 16:15 POC Glucose 149 H Radiology Reviewed by me: Yes (US scrotum) Hospitalist ROS - Review of Systems All other systems reviewed; all pertinent +/- noted in HPI/Subj - Medication Medications: Active Medications Generic Name Dose Route Start Last Admin Trade Name Freq PRN Reason Stop Dose Admin Acetaminophen 650 mg 01/13/19 04:08 01/19/19 05:43 Tylenol PO 650 mg Q4H PRN Administration Headache/Fever/Mild Pain (1-3) Albuterol/Ipratropium 3 ml 01/18/19 20:49 01/20/19 04:08 Duoneb NEB 3 ml Q4H PRN Administration SOB &/or Wheezing Albuterol/Ipratropium 3 ml 01/19/19 01:00 01/20/19 12:30 Duoneb NEB 3 ml [id number] EAN Administration Aspirin 81 mg 01/15/19 09:00 01/20/19 09:07 Ecotrin PO 81 mg DAILY EAN Administration Insulin Glargine 10 units/ 0.1 mls @ 0 mls/hr 01/13/19 21:00 01/19/19 20:33 Miscellaneous Medication SC 0.1 mls HS EAN Administration Insulin Glargine 10 units/ 0.1 mls @ 0 mls/hr 01/13/19 09:00 01/20/19 09:07 Miscellaneous Medication SC 0.1 mls QAM EAN Administration Sodium Bicarbonate 50 meq/ 1,050 mls @ 100 mls/hr 01/19/19 09:45 01/20/19 09: 08 Sodium Chloride IV 1,050 mls .[id number] EAN Administration Linezolid 600 mg/ Device 300 mls @ 150 mls/hr 01/20/19 09:00 01/20/19 09:08 IVPB 300 mls Q12HR EAN Administration Insulin Human Lispro 0 units 01/13/19 04:12 01/20/19 12:04 Humalog SC 6 unit .MODERATE SLIDING SC PRN Administration Moderate Correctional Scale Insulin Human Lispro 6 units 01/13/19 08:00 01/20/19 12:04 Humalog SC 6 units TID-WM EAN Administration Insulin Human NPH 20 unit 01/14/19 21:00 01/19/19 21:00 Humulin N SC Not Given QPM EAN Insulin Human NPH 20 unit 01/15/19 09:00 01/20/19 09:07 Humulin N SC 20 unit QAM EAN Administration Lactulose 20 gm 01/14/19 21:00 01/20/19 09:07 Lactulose PO 20 gm BID EAN Administration Morphine Sulfate 2 mg 01/13/19 11:38 01/18/19 08:21 Morphine SLOW IVP 2 mg Q6H PRN Administration Severe Pain (7-10) Phenol 180 ml 01/20/19 11:17 01/20/19 12:06 Chloraseptic [place] 180 Ml Bot PO 1 spr BIDPRN PRN Administration Sore Throat Propranolol HCl 20 mg 01/14/19 21:00 01/20/19 09:07 Inderal PO 20 mg BID EAN Administration Sodium Bicarbonate 325 mg 01/19/19 15:00 01/20/19 09:07 Bicarbonate, Sodium PO 325 mg TID EAN Administration Sodium Chloride 10 ml 01/13/19 21:00 01/20/19 09:08 Flush - Normal Saline IVF Not Given Q12HR EAN Sodium Chloride 10 ml 01/13/19 09:57 01/15/19 14:33 Flush - Normal Saline IVF 10 ml PRN PRN Administration Saline Flush - Exam General Appearance: NAD, awake alert Eye: PERRL ENT: normocephalic atraumatic, moist mucosa Neck: supple, symmetric, no lymphadenopathy Heart: no murmur, no gallops, no rubs Respiratory: CTAB, no rales, no ronchi, wheezes Gastrointestinal: soft, non-tender, non-distended, no guarding, no rigidity Gastrointestinal - other findings: - Generalized scrotal edema Extremities: 1+ LE edema Skin: no lesions, no rashes Neurological: cranial nerve grossly intact, no weakness Musculoskeletal: normal strength, no muscle wasting Psychiatric: normal affect, A&O x 3 Hosp A/P (1) Bacteremia due to Gram-positive bacteria Code(s): R78.81 - BACTEREMIA Status: Acute (2) DM type 2 (diabetes mellitus, type 2) Status: Chronic Qualifiers: Diabetes mellitus termite treater helper insulin use: with termite treater helper use Diabetes mellitus complication status: with hyperglycemia Qualified Code(s): E11.65 - Type 2 diabetes mellitus with hyperglycemia; Z79.4 - assisted (current) use of insulin (3) Diabetes Code(s): E11.9 - TYPE 2 DIABETES MELLITUS WITHOUT COMPLICATIONS Status: Chronic (4) Hyponatremia Code(s): E87.1 - HYPO-OSMOLALITY AND HYPONATREMIA Status: Resolved (5) Liver cancer Code(s): C22.9 - MALIG NEOPLASM OF LIVER, NOT SPECIFIED PRIMARY OR SEC Status: Chronic (6) Sepsis Code(s): A41.9 - SEPSIS, UNSPECIFIED ORGANISM Status: Resolved Qualifiers: Sepsis type: methicillin susceptible Staphylococcus aureus Sepsis acute organ dysfunction status: without acute organ dysfunction Qualified Code(s): A41.01 - Sepsis due to Methicillin susceptible Staphylococcus aureus (7) Thrombocytopenia Code(s): D69.6 - THROMBOCYTOPENIA, UNSPECIFIED Status: Chronic (8) Cirrhosis of liver Code(s): K74.60 - UNSPECIFIED CIRRHOSIS OF LIVER Status: Chronic Qualifiers: Ascites presence: unspecified - Plan Plan: medical unit infectious disease consultation, recommendations patient nephrology consultation, recommendations appreciated oncology consultation, recommendations appreciated will need outpatient follow- up for liver mass patient with acute kidney injury on vancomycin, discontinue vancomycin MRSA in urine and blood with sensitivity to vancomycin and Linezolid Continue Linezolid, responding well IV fluid resuscitation renal ultrasound ruled out obstruction Scrotal US neg for mass of vascular abnormalities lactulose chronic therapy to lower ammonia and avoid hepatic encephalopathy continue other home medications as able
[2019-01-20] MEDS: Morphine 2 MG/ML SYRINGE SLOW IVP PRN (23:15)
[2019-01-21] MEDS: Sodium Bicarbonate 50 MEQ in Sodium Chloride 0.9% 1,000 ML IV SCH ×2 (02:20→16:15)
[2019-01-21 05:50] LABS: Anion Gap 13 mmol/L (10-20); BUN (Urea Nitrogen) 63 mg/dL (8.4-25.7); Calc. Creatinine Clearance 28 mL/min (70-130); Calcium 7.2 mg/dL (7.8-10.44); Carbon Dioxide 17 mmol/L (22-29); Chloride 102 mmol/L (98-107); Estimated GFR-MDRD 17; Glucose 69 mg/dL (70-105); Potassium 3.6 mmol/L (3.5-5.1); Sodium 128 mmol/L (136-145)
[2019-01-21] MEDS ORDERED: Furosemide 100 MG/10 ML VIAL SLOW IVP SCH (06:45)
[2019-01-21 08:28] LABS: Actual Bicarbonate (HCO3a) 17.5 mEq/L (22-28); Base Excess (BEa) -6.5 mEq/L (-2.0 to +3.0); CO2 Tension 29.7 mmHg (35.0-45.0); Calcium, Ionized 1.05 mmol/L (1.12-1.30); Carboxyhemoglobin (COHb) 1.6 gm% (0.0-3.0); Hemoglobin (Hb) 11.2 g/dL (14.0-18.0); O2 Tension (PaO2) 93.4 mmHg (80.0-100.0); pH, Arterial 7.39 (7.35-7.45)
[2019-01-21 08:30] LABS: ALV-art Gradient 69.115 (0-20); Puncture Site RRA
[2019-01-21] MEDS: Propranolol HCl 20 MG TAB PO SCH ×2 (09:32→21:00)
[2019-01-21] MEDS: Aspirin 81 mg Enteric Coated Tablet PO SCH (09:32)
[2019-01-21] MEDS: Sodium Bicarbonate Tab 325 MG TAB PO SCH ×3 (09:32→20:59)
[2019-01-21] MEDS: HumaLOG 300 UNITS/3 ML VIAL SC SCH ×3 (09:41→16:41)
[2019-01-21] MEDS: NPH, Human Insulin Isophane 300 UNIT/3 ML VIAL SC SCH ×2 (09:42→21:08)
[2019-01-21] MEDS: Insulin Glargine 10 UNITS in Pre-Filled Syringe 1 EACH SC SCH ×2 (09:42→21:07)
--- NOTE | 2019-01-21 11:13 | PDOC.PULCN ---
Pulmonology Consult: HPI - Date of Consult Date: 01/21/19 Time: 11:00 - Consult Details Reason for Consult: IMCU - History of Present Illness HPI: JACK JOHNSON is a 53 year-old M Pulmonology Consult: Meds - Medications Medications: Current Medications Acetaminophen (Tylenol) 650 mg PO Q4H PRN PRN Reason: Headache/Fever/Mild Pain (1-3) Last Admin: 01/19/19 05:43 Dose: 650 mg Albuterol/Ipratropium (Duoneb) 3 ml NEB Q4H PRN PRN Reason: SOB &/or Wheezing Last Admin: 01/20/19 04:08 Dose: 3 ml Albuterol/Ipratropium (Duoneb) 3 ml NEB [id number] [facility] Last Admin: 01/21/19 07:34 Dose: 3 ml Aspirin (Ecotrin) 81 mg PO DAILY [facility] Last Admin: 01/21/19 09:32 Dose: 81 mg Dextrose/Water (Dextrose 50%) 25 gm SLOW IVP PRN PRN PRN Reason: Hypoglycemia Glucagon (Glucagon) 1 mg IM PRN PRN PRN Reason: Hypoglycemia Dextrose/Water (D5w) 1,000 mls @ 0 mls/hr IV .Q0M PRN PRN Reason: Hypoglycemia Insulin Glargine 10 units/ (Miscellaneous Medication) 0.1 mls @ 0 mls/hr SC HS [facility] Last Admin: 01/20/19 21:24 Dose: 0.1 mls Insulin Glargine 10 units/ (Miscellaneous Medication) 0.1 mls @ 0 mls/hr SC QAM [facility] Last Admin: 01/21/19 09:42 Dose: Not Given Sodium Bicarbonate 50 meq/ (Sodium Chloride) 1,050 mls @ 100 mls/hr IV .[id number] [facility] Last Admin: 01/21/19 02:20 Dose: 1,050 mls Linezolid 600 mg/ Device 300 mls @ 150 mls/hr IVPB Q12HR [facility] Last Admin: 01/20/19 21:23 Dose: 300 mls Insulin Human Lispro (Humalog) 0 units SC .MODERATE SLIDING SC PRN PRN Reason: Moderate Correctional Scale Last Admin: 01/20/19 16:17 Dose: 2 unit Insulin Human Lispro (Humalog) 6 units SC TID-WM [facility] Last Admin: 01/21/19 09:41 Dose: Not Given Insulin Human NPH (Humulin N) 20 unit SC QPM [facility] Last Admin: 01/20/19 21:25 Dose: 20 units Insulin Human NPH (Humulin N) 20 unit SC QAM [facility] Last Admin: 01/21/19 09:42 Dose: Not Given Lactulose (Lactulose) 20 gm PO BID [facility] Last Admin: 01/21/19 09:32 Dose: Not Given Morphine Sulfate (Morphine) 2 mg SLOW IVP Q6H PRN PRN Reason: Severe Pain (7-10) Last Admin: 01/20/19 23:15 Dose: 2 mg Phenol (Chloraseptic [place] 180 Ml Bot) 180 ml PO BIDPRN PRN PRN Reason: Sore Throat Last Admin: 01/20/19 12:06 Dose: 1 spr Propranolol HCl (Inderal) 20 mg PO BID [facility] Last Admin: 01/21/19 09:32 Dose: 20 mg Sodium Bicarbonate (Bicarbonate, Sodium) 325 mg PO TID [facility] Last Admin: 01/21/19 09:32 Dose: 325 mg Sodium Chloride (Flush - Normal Saline) 10 ml IVF Q12HR [facility] Last Admin: 01/20/19 21:25 Dose: Not Given Sodium Chloride (Flush - Normal Saline) 10 ml IVF PRN PRN PRN Reason: Saline Flush Last Admin: 01/15/19 14:33 Dose: 10 ml - Allergies Allergies/Adverse Reactions: Allergies Allergy/AdvReac Type Severity Reaction Status Date / Time Interferons Allergy Verified 01/13/19 06:52 Pulmonology Consult: Results - Labs Result Diagrams: 01/18/19 11:30 01/21/19 05:15 - ABG Interpretation ABG Results: ABG pH 7.39 (7.35-7.45) 01/21/19 08:18 ABG pCO2 29.7 mmHg (35.0-45.0) L 01/21/19 08:18 ABG O2 Sat Calc/[place] 97.0 % (94.0-98.0) 01/21/19 08:18 ABG Base Excess -6.5 mEq/L (-2.0 to +3.0) L 01/21/19 08:18 Pulmonology Consult: A/P - Time Time: 50% of the time was spent in coordination of care (as documented) at patient's floor/unit and/or counseling patient.
--- NOTE | 2019-01-21 11:24 | PDOC.PULCN ---
Pulmonology Consult: HPI - Date of Consult Date: 01/21/19 Time: 11:00 - History of Present Illness HPI: JACK JOHNSON is a 53 year-old M 53 yo M with PMH of DM, HTN, treated Hep C, liver cancer undergoing chemo, MRSA skin infections, from [facility] presented to the ER with CC of uncontrolled blood sugars, weight loss, fever, and right collar-bone pain. Pt was found to have MRSA bacteremia, was being treated on Vanc and developed SILVIO. This was presumably from vancomycin, which was transitioned to Linezolid. He was transferred to the [facility] for increased level of care. Pulmonology Consult: ROS - Review of Systems Constitutional: negative: fever, weakness Cardiovascular: negative: chest pain, palpitations Respiratory: short of breath, tachypnea. 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 , HTN, Hx MRSA skin infections - Family History Pertinent family history: Denies family history of heart disease, lung disease; reports he has a cousin with diabetes - Social History Smoking Status: Never smoker Alcohol Use: heavy (Reports he drinks 36 beers/day) Drug Use History: cocaine, IV drugs (last used ) Pulmonology Consult: Meds - Medications MAR Reviewed: Yes Medications: Current Medications Acetaminophen (Tylenol) 650 mg PO Q4H PRN PRN Reason: Headache/Fever/Mild Pain (1-3) Last Admin: 01/19/19 05:43 Dose: 650 mg Albuterol/Ipratropium (Duoneb) 3 ml NEB Q4H PRN PRN Reason: SOB &/or Wheezing Last Admin: 01/20/19 04:08 Dose: 3 ml Albuterol/Ipratropium (Duoneb) 3 ml NEB [id number] EAN Last Admin: 01/21/19 07:34 Dose: 3 ml Aspirin (Ecotrin) 81 mg PO DAILY EAN Last Admin: 01/21/19 09:32 Dose: 81 mg Dextrose/Water (Dextrose 50%) 25 gm SLOW IVP PRN PRN PRN Reason: Hypoglycemia Glucagon (Glucagon) 1 mg IM PRN PRN PRN Reason: Hypoglycemia Dextrose/Water (D5w) 1,000 mls @ 0 mls/hr IV .Q0M PRN PRN Reason: Hypoglycemia Insulin Glargine 10 units/ (Miscellaneous Medication) 0.1 mls @ 0 mls/hr SC HS [facility] Last Admin: 01/20/19 21:24 Dose: 0.1 mls Insulin Glargine 10 units/ (Miscellaneous Medication) 0.1 mls @ 0 mls/hr SC QAM [facility] Last Admin: 01/21/19 09:42 Dose: Not Given Sodium Bicarbonate 50 meq/ (Sodium Chloride) 1,050 mls @ 100 mls/hr IV .[id number] [facility] Last Admin: 01/21/19 02:20 Dose: 1,050 mls Linezolid 600 mg/ Device 300 mls @ 150 mls/hr IVPB Q12HR [facility] Last Admin: 01/20/19 21:23 Dose: 300 mls Insulin Human Lispro (Humalog) 0 units SC .MODERATE SLIDING SC PRN PRN Reason: Moderate Correctional Scale Last Admin: 01/20/19 16:17 Dose: 2 unit Insulin Human Lispro (Humalog) 6 units SC [facility] Last Admin: 01/21/19 09:41 Dose: Not Given Insulin Human NPH (Humulin N) 20 unit SC QPM [facility] Last Admin: 01/20/19 21:25 Dose: 20 units Insulin Human NPH (Humulin N) 20 unit SC QAM [facility] Last Admin: 01/21/19 09:42 Dose: Not Given Lactulose (Lactulose) 20 gm PO BID [facility] Last Admin: 01/21/19 09:32 Dose: Not Given Morphine Sulfate (Morphine) 2 mg SLOW IVP Q6H PRN PRN Reason: Severe Pain (7-10) Last Admin: 01/20/19 23:15 Dose: 2 mg Phenol (Chloraseptic [place] 180 Ml Bot) 180 ml PO BIDPRN PRN PRN Reason: Sore Throat Last Admin: 01/20/19 12:06 Dose: 1 spr Propranolol HCl (Inderal) 20 mg PO BID [facility] Last Admin: 01/21/19 09:32 Dose: 20 mg Sodium Bicarbonate (Bicarbonate, Sodium) 325 mg PO TID [facility] Last Admin: 01/21/19 09:32 Dose: 325 mg Sodium Chloride (Flush - Normal Saline) 10 ml IVF Q12HR [facility] Last Admin: 01/20/19 21:25 Dose: Not Given Sodium Chloride (Flush - Normal Saline) 10 ml IVF PRN PRN PRN Reason: Saline Flush Last Admin: 01/15/19 14:33 Dose: 10 ml - Allergies Allergies/Adverse Reactions: Allergies Allergy/AdvReac Type Severity Reaction Status Date / Time Interferons Allergy Verified 01/13/19 06:52 Pulmonology Consult: PE - Physical Exam Constitutional: NAD Deviation from normal: L pupil 3 mm, right 2 mm; poor dentition, dry MM; + scleral icterus Neck: no nodes, supple Cardiovascular: RRR, no significant murmur Respiratory: other (tachypneic). negative: accessory muscle use, prolonged expiratory phase, rales, rhonchi, wheezes Gastrointestinal: non-tender, positive bowel sounds Deviation from normal: +distention Deviation from normal: 2+ pitting edema BLE Neurological: moves all 4 limbs Psychiatric: normal affect, A&O x 3 Skin: normal turgor, cap refill <2 seconds Deviation from normal: Mild jaundice over face; bruising over arms Pulmonology Consult: Results - Labs Result Diagrams: 01/18/19 11:30 01/22/19 03:52 - ABG Interpretation ABG Results: ABG pH 7.39 (7.35-7.45) 01/21/19 08:18 ABG pCO2 29.7 mmHg (35.0-45.0) L 01/21/19 08:18 ABG O2 Sat Calc/[place] 97.0 % (94.0-98.0) 01/21/19 08:18 ABG Base Excess -6.5 mEq/L (-2.0 to +3.0) L 01/21/19 08:18 Pulmonology Consult: A/P - Time Time: 50% of the time was spent in coordination of care (as documented) at patient's floor/unit and/or counseling patient. Time with Patient: greater than 50 minutes - Plan Plan: 1. MRSA Bacteremia: +MRSA blood cultures. Dolores consulted, recommendations appreciated. Switched from vancomycin to linezolid for SILVIO. Consider ESTRADA for possible endocarditis. 2. SILVIO. Dr. Parks nephrology following, appreciate recs. Posterior infectious glomerulonephritis vs drug-induced acute interstitial nephritis. Continue to monitor electrolytes. 3. Isotonic Hyponatremia. Normal Serum osm 285. 4. Liver cancer with lung mets. 8 cm mass seen on CT abdomen. 5. Thrombocytopenia. Likely 2/2 liver disease. 6. CXR reviewed, likely no pneumonia. Likely atelectasis. 7. Rt hip and Rt collarbone pain. Possibly 2/2 seeding of infection. Consider further imaging with MRI. 8. Diabetes. Continue accuchecks and SSI. 9. Ascites: likely 2/2 to liver disease. Abdominal US to evaluate if this may be causing pulmonary restriction. 10. Jaundice: Repeat CMP. Manish Franks MD, PGY -[address] King. Please see Pulmonologists note for pertinent changes. Dr. King's Addendum Pt seen and examined with Dr. Franks. I have independently confirmed the details above. Agree with a/p.
[2019-01-21] MEDS: Linezolid 600 MG in Premix Bag 1 BAG IVPB SCH ×2 (11:51→21:00)
--- NOTE | 2019-01-21 11:56 | RAD ---
Exam: Chest one view HISTORY:Dyspnea Comparison: 01/18/2019 FINDINGS: Cardiac silhouette:Artery megaly. Lines and tubes: Stable left-sided PICC line. Aorta: Unremarkable Pulmonary vessels: Prominent Costophrenic angles: Clear LUNGS: Persistent interstitial and alveolar opacification Pneumothorax: None Osseous abnormalities: None IMPRESSION: No significant interval change.
[2019-01-21 12:12] LABS: ALT (SGPT) 31 U/L (8-55); AST (SGOT) 69 U/L (5-34); Albumin 1.6 g/dL (3.5-5.0); Alkaline Phosphatase 248 U/L (40-110); Bilirubin, Direct 1.1 mg/dL (0.1-0.3); Bilirubin, Total 1.8 mg/dL (0.2-1.2); Protein, Total 5.9 g/dL (6.0-8.3)
--- NOTE | 2019-01-21 14:12 | PDOC.HOSPP ---
- Subjective Subjective: Seen and examined. Complain of shortness of breath in the night, chest x-ray does not demonstrate overt fluid overload. ABG with compensated metabolic acidosis. Patient is more somnolent and with his rapid respiratory rate, concern that the patient may tire out. I'm recommending he upgrade to the intermediate medical care floor. When Case discussed with Dr. Parks if he does not improve he may require hemodialysis. - Objective Vital Signs & Weight: Vital Signs (12 hours) Temp Pulse Resp BP BP Pulse Ox 01/21/19 12:55 73 22 H 99 01/21/19 11:14 98 01/21/19 11:13 97.5 F L 01/21/19 09:20 97.4 F L 76 20 113/70 96 01/21/19 08:43 96 01/21/19 07:34 80 24 H 01/21/19 04:00 98.6 F 87 20 151/76 H 94 L Weight Admit Weight 169 lb Weight 197 lb I&O: 01/20/19 01/21/19 01/22/19 06:59 06:59 06:59 Intake Total 3200 4760 Balance 3200 4760 Result Diagrams: 01/18/19 11:30 01/21/19 05:15 Additional Labs: Accuchecks 01/21/19 01/21/19 01/20/19 10:45 04:48 21:27 POC Glucose 126 H 73 106 01/20/19 16:18 POC Glucose 159 H Radiology Reviewed by me: Yes (CXR) Hospitalist ROS - Review of Systems All other systems reviewed; all pertinent +/- noted in HPI/Subj - Medication Medications: Active Medications Generic Name Dose Route Start Last Admin Trade Name Freq PRN Reason Stop Dose Admin Acetaminophen 650 mg 01/13/19 04:08 01/19/19 05:43 Tylenol PO 650 mg Q4H PRN Administration Headache/Fever/Mild Pain (1-3) Albuterol/Ipratropium 3 ml 01/18/19 20:49 01/20/19 04:08 Duoneb NEB 3 ml Q4H PRN Administration SOB &/or Wheezing Albuterol/Ipratropium 3 ml 01/19/19 01:00 01/21/19 12:55 Duoneb NEB 3 ml [id number] EAN Administration Aspirin 81 mg 01/15/19 09:00 01/21/19 09:32 Ecotrin PO 81 mg DAILY EAN Administration Insulin Glargine 10 units/ 0.1 mls @ 0 mls/hr 01/13/19 21:00 01/20/19 21:24 Miscellaneous Medication SC 0.1 mls HS EAN Administration Insulin Glargine 10 units/ 0.1 mls @ 0 mls/hr 01/13/19 09:00 01/21/19 09:42 Miscellaneous Medication SC Not Given QAM EAN Sodium Bicarbonate 50 meq/ 1,050 mls @ 100 mls/hr 01/19/19 09:45 01/21/19 02: 20 Sodium Chloride IV 1,050 mls .[id number] EAN Administration Linezolid 600 mg/ Device 300 mls @ 150 mls/hr 01/20/19 09:00 01/21/19 11:51 IVPB 300 mls Q12HR EAN Administration Insulin Human Lispro 0 units 01/13/19 04:12 01/20/19 16:17 Humalog SC 2 unit .MODERATE SLIDING SC PRN Administration Moderate Correctional Scale Insulin Human Lispro 6 units 01/13/19 08:00 01/21/19 11:52 Humalog SC 6 units TID-WM EAN Administration Insulin Human NPH 20 unit 01/14/19 21:00 01/20/19 21:25 Humulin N SC 20 units QPM EAN Administration Insulin Human NPH 20 unit 01/15/19 09:00 01/21/19 09:42 Humulin N SC Not Given QAM [facility] Lactulose 20 gm 01/14/19 21:00 01/21/19 09:32 Lactulose PO Not Given BID [facility] Morphine Sulfate 2 mg 01/13/19 11:38 01/20/19 23:15 Morphine SLOW IVP 2 mg Q6H PRN Administration Severe Pain (7-10) Phenol 180 ml 01/20/19 11:17 01/20/19 12:06 Chloraseptic [place] 180 Ml Bot PO 1 spr BIDPRN PRN Administration Sore Throat Propranolol HCl 20 mg 01/14/19 21:00 01/21/19 09:32 Inderal PO 20 mg BID EAN Administration Sodium Bicarbonate 325 mg 01/19/19 15:00 01/21/19 09:32 Bicarbonate, Sodium PO 325 mg TID EAN Administration Sodium Chloride 10 ml 01/13/19 21:00 01/21/19 11:51 Flush - Normal Saline IVF 10 ml Q12HR EAN Administration Sodium Chloride 10 ml 01/13/19 09:57 01/15/19 14:33 Flush - Normal Saline IVF 10 ml PRN PRN Administration Saline Flush - Exam General Appearance: ill appearing Eye: PERRL, anicteric sclera ENT: normocephalic atraumatic, moist mucosa Neck: supple, symmetric, no lymphadenopathy Heart: no murmur, no gallops, no rubs Respiratory: rhonchi, tachypneic, wheezes Gastrointestinal: soft, non-tender, no guarding, no rigidity Extremities: 2+ LE edema Skin: no lesions, no rashes Neurological: cranial nerve grossly intact, no focal deficits Musculoskeletal: generalized weakness Psychiatric: A&O x 3, somnolent Hosp A/P (1) Bacteremia due to Gram-positive bacteria Code(s): R78.81 - BACTEREMIA Status: Acute (2) DM type 2 (diabetes mellitus, type 2) Status: Chronic Qualifiers: Diabetes mellitus mcfp insulin use: with watermelon inspector use Diabetes mellitus complication status: with hyperglycemia Qualified Code(s): E11.65 - Type 2 diabetes mellitus with hyperglycemia; Z79.4 - exterminator helper (current) use of insulin (3) Diabetes Code(s): E11.9 - TYPE 2 DIABETES MELLITUS WITHOUT COMPLICATIONS Status: Chronic (4) Hyponatremia Code(s): E87.1 - HYPO-OSMOLALITY AND HYPONATREMIA Status: Resolved (5) Liver cancer Code(s): C22.9 - MALIG NEOPLASM OF LIVER, NOT SPECIFIED PRIMARY OR SEC Status: Chronic (6) Sepsis Code(s): A41.9 - SEPSIS, UNSPECIFIED ORGANISM Status: Resolved Qualifiers: Sepsis type: methicillin susceptible Staphylococcus aureus Sepsis acute organ dysfunction status: without acute organ dysfunction Qualified Code(s): A41.01 - Sepsis due to Methicillin susceptible Staphylococcus aureus (7) Thrombocytopenia Code(s): D69.6 - THROMBOCYTOPENIA, UNSPECIFIED Status: Chronic (8) Cirrhosis of liver Code(s): K74.60 - UNSPECIFIED CIRRHOSIS OF LIVER Status: Chronic Qualifiers: Ascites presence: unspecified - Plan Plan: medical unit, upgrade to [facility] Pulm/ cc consultation, recommendations patient infectious disease consultation, recommendations patient nephrology consultation, recommendations appreciated oncology consultation, recommendations appreciated will need outpatient follow- up for liver mass With resp compensation of metabolic acidosis I'm concerned that the patient may tire out and require intubation May require HD if renal function does not improve Reviewed CXR and ABG Repeat blood cultures initially negative, now positive 1/2 Repeat blood cultures, if cannot sterilize blood would need ESTRADA MRSA in urine and blood with sensitivity to vancomycin and Linezolid Continue Linezolid, responding well IV fluid resuscitation renal ultrasound ruled out obstruction Scrotal US neg for mass of vascular abnormalities lactulose chronic therapy to lower ammonia and avoid hepatic encephalopathy continue other home medications as able
--- NOTE | 2019-01-21 14:59 | ULT ---
LIMITED ABDOMINAL ULTRASOUND: 01/21/2019 HISTORY: Evaluate for ascites. COMPARISON: None. TECHNIQUE: Multiplanar polk-scale sonographic imaging of the abdomen provided as detailed below. FINDINGS: Small volume ascites noted in the right upper quadrant and left lower quadrant. Bilateral pleural eff usions are noted. The hepatic parenchyma is heterogeneous and echogenic, suggesting hepatocellular di sease. The spleen measures up to 14.7 cm, enlarged. Question a history of portal hypertension. IMPRESSION: Small volume bilateral pleural effusions with small volume right upper quadrant and left lower quadra nt free fluid. Small volume ascites. POS: [facility]
--- NOTE | 2019-01-21 17:41 | PRG ---
DATE OF SERVICE: 01/21/2019 SUBJECTIVE: Patient was seen and examined at bedside and overnight events noted. Patient denies any shortness of breath or chest pain or palpitation. No history of nausea or vomiting or diarrhea or fever or chills or cramps. OBJECTIVE: GENERAL: This is a well-built male, in mild distress. VITAL SIGNS: Temperature 97.0. Heart rate 73. Respiratory rate 22. Blood pressure 113/70. HEENT: Atraumatic, normocephalic. Oral mucosa is moist NECK: Supple. CARDIOVASCULAR: S1, S2 heard. Rate and rhythm regular. RESPIRATORY: Clear to auscultation. GASTROINTESTINAL: Abdomen is soft. MUSCULOSKELETAL: No tenderness. No edema. DERMATOLOGIC: No skin rash. NEUROLOGIC: Alert and awake and oriented X3. No focal neurologic deficits. Moving all the extremities. PSYCHIATRIC: Mood and affect normal. LABORATORY DATA: Potassium 3.6; BUN is 63; and creatinine is 3.7, from 3.6. ASSESSMENT AND PLAN: 1. Acute kidney injury, most likely secondary to cardiorenal syndrome. We will try Lasix today. 2. Hyponatremia, limit fluid. 3. Acidosis, will have Lasix. 4. Hypocalcemia. 5. Anemia. No acute indication for dialysis, but if no response to Lasix, will have dialysis. I had a discussion with him and he is agreeable to dialysis. Avoid nephrotoxins and limit fluid intake. Continue Lasix as tolerated. Job ID: [id number]
[2019-01-21] MEDS: Chloraseptic Spray 180 ml Bottle PO PRN (21:07)
[2019-01-22] MEDS: Acetaminophen 325 MG TAB PO PRN (00:56)
[2019-01-22 04:23] LABS: Anion Gap 15 mmol/L (10-20); BUN (Urea Nitrogen) 77 mg/dL (8.4-25.7); Calc. Creatinine Clearance 23 mL/min (70-130); Calcium 7.1 mg/dL (7.8-10.44); Carbon Dioxide 16 mmol/L (22-29); Chloride 100 mmol/L (98-107); Estimated GFR-MDRD 13; Glucose 224 mg/dL (70-105); Potassium 4.1 mmol/L (3.5-5.1); Sodium 127 mmol/L (136-145)
--- NOTE | 2019-01-22 09:40 | PRG ---
DATE OF SERVICE: 01/22/2019 SUBJECTIVE: He appears to be about the same. He is grossly edematous throughout and has not made much in the way urine. OBJECTIVE: VITAL SIGNS: Temperature 97.5, pulse 66, blood pressure 96/51, and O2 saturation 99%. His intake for 24 hours has been 4760. Urine output looks to be about 200 over the last 24 hours. HEENT: Unremarkable. NECK: No adenopathy or JVD. LUNGS: Diminished breath sounds at the bases. CARDIAC: S1-S2, regular. ABDOMEN: Soft. Slightly distended. EXTREMITIES: Edematous throughout. LABORATORY DATA: Sodium 127, potassium 4.1, chloride 100, CO2 of 16, BUN 77, creatinine 4.6, and glucose 224. ASSESSMENT: 1. Gross fluid overload. 2. Hypoxic respiratory failure. PLAN: Likely, we will need hemodialysis for fluid removal. No acute pulmonary concerns. We will follow with you. Job ID: [id number]
[2019-01-22] MEDS: HumaLOG 300 UNITS/3 ML VIAL SC SCH ×3 (09:42→18:06)
[2019-01-22] MEDS: Linezolid 600 MG in Premix Bag 1 BAG IVPB SCH ×2 (09:43→21:43)
[2019-01-22] MEDS: Aspirin 81 mg Enteric Coated Tablet PO SCH (09:43)
[2019-01-22] MEDS: Insulin Glargine 10 UNITS in Pre-Filled Syringe 1 EACH SC SCH (09:43)
[2019-01-22] MEDS: Sodium Bicarbonate Tab 325 MG TAB PO SCH ×3 (09:44→21:43)
[2019-01-22] MEDS: NPH, Human Insulin Isophane 300 UNIT/3 ML VIAL SC SCH (09:44)
[2019-01-22] MEDS: Propranolol HCl 20 MG TAB PO SCH (09:44)
--- NOTE | 2019-01-22 10:50 | PRG ---
DATE OF SERVICE: 01/22/2019 SUBJECTIVE: The patient is seen and examined at bedside, and the patient remains anuric and did not make much urine last night. The shortness of breath is better and altered mentation is better. OBJECTIVE: GENERAL: This is a well-built male, in no apparent. VITAL SIGNS: Temperature 97.5. Heart rate 70. Respiratory rate 20. Blood pressure 118/60. HEENT: Atraumatic, normocephalic. Oral mucosa is moist NECK: Supple. CARDIOVASCULAR: S1, S2 heard. Rate and rhythm regular. RESPIRATORY: Clear to auscultation. GASTROINTESTINAL: Abdomen is soft. MUSCULOSKELETAL: 2+ edema. DERMATOLOGIC: No skin rash. NEUROLOGIC: Alert and awake and oriented X3. No focal neurologic deficits. Moving all the extremities. PSYCHIATRIC: Mood and affect normal. LABORATORY DATA: Potassium 4.1, BUN is 77, creatinine is 4.6. ASSESSMENT AND PLAN: 1. Acute Kidney Injury on CKD Stage 3 - Pt remains anuric and fluid overloaded. Plan to start on dialysis. 2. Edema, we will remove fluid. Prognosis guarded. 3. History of hypertension, stable. 4. Anemia. We will monitor. 5. Consult placed for Dr. Castle to plan to place the line. Once the line is placed, we will start on dialysis. Dialysis order set ordered. Dialysis nurse notified. Also check PPD and we will have Case Management for outpatient ____ placement. 6. We will continue close monitoring. Plan to start dialysis as tolerated. We will plan for 2 hours of dialysis today. Job ID: [id number] MTDD
[2019-01-22 11:33] LABS: HBSAg Index 0.14 S/CO (0-0.99); Hep B Core Total Ab Non-Reactive (NonReactive); Hep B Core Total Index 0.15 S/CO (0-0.79); Hep B Surf Ag Non-Reactive S/CO (NonReactive)
[2019-01-22 11:50] LABS: HBSAB Concentration 15.59 mIU/mL; Hep B Surf AB Reactive (NonReactive); Hep C IgG Ab Reflex HepC Qnt (NonReactive); Hep C Index 8.92 S/CO (0-0.79)
[2019-01-22] MEDS: Tuberculin PPD 0.1 ML VIAL I-DERMAL SCH (12:47)
[2019-01-22] MEDS ORDERED: Heparin 10,000 UNITS/1 ML VIAL ONE (15:00)
--- NOTE | 2019-01-22 16:27 | ULT ---
Hepatic sonogram with duplex evaluation HISTORY: Ascites. Worsening abdominal pain and swelling. FINDINGS: Gallbladder not visualized. Seen to be calcified and contracted on prior CT. Common bile du ct is 0.6 cm. Liver is very heterogeneous with nodular contour. The mass within the right liver lobe on the prior e xam is not well demonstrated on the current sonogram. Vascular flow is seen within the falciform ligament/umbilical vein. Moderate amount of free fluid throughout the abdomen and pelvis. Spleen measures up to 13.9 cm. Dilat ed varices near the splenic hilum. Good color and spectral Doppler flow within the hepatic and splenic arteries. No flow is visible within the portal vein. It is filled with echogenic material. Minimal flow within the smaller portal venous branches. Hepatic venous flow is towards the liver. IMPRESSION: Portal venous thrombosis. Findings of chronic portal venous hypertension. Recanalization of the umbilical vein at the falciform ligament. Moderate amount of ascites now visible, increasing since prior CT exam.
--- NOTE | 2019-01-22 17:17 | PDOC.HOSPP ---
- Subjective Subjective: Seen and examined. More alert and awake. Breathing more comfortably. Abdominal ultrasound was previously negative for portal vein thrombosis, now abnormal and positive for portal vein thrombosis. Pending surgery placement of HD catheter, will need anticoagulation afterwards. Planning for hemodialysis. Prognosis guarded. - Objective Vital Signs & Weight: Vital Signs (12 hours) Temp Pulse Resp Pulse Ox 01/22/19 16:38 97.3 F L 01/22/19 12:47 72 24 H 100 01/22/19 11:06 97.2 F L 01/22/19 08:04 97.5 F L 01/22/19 08:00 97 01/22/19 07:42 71 20 99 Weight Admit Weight 169 lb Weight 210 lb 8 oz Most Recent Monitor Data Heart Rate from ECG 73 NIBP 108/48 NIBP BP-Mean 68 Respiration from ECG 24 SpO2 100 I&O: 01/21/19 01/22/19 01/23/19 06:59 06:59 06:59 Intake Total 4760 910 Output Total 200 Balance 4760 710 Result Diagrams: 01/18/19 11:30 01/22/19 03:52 Additional Labs: Accuchecks 01/22/19 01/22/19 01/21/19 10:38 05:17 20:39 POC Glucose 198 H 170 H 280 H Radiology Reviewed by me: Yes (US abdomen) Hospitalist ROS - Review of Systems All other systems reviewed; all pertinent +/- noted in HPI/Subj - Medication Medications: Active Medications Generic Name Dose Route Start Last Admin Trade Name Freq PRN Reason Stop Dose Admin Acetaminophen 650 mg 01/13/19 04:08 01/22/19 00:56 Tylenol PO 650 mg Q4H PRN Administration Headache/Fever/Mild Pain (1-3) Albuterol/Ipratropium 3 ml 01/18/19 20:49 01/20/19 04:08 Duoneb NEB 3 ml Q4H PRN Administration SOB &/or Wheezing Albuterol/Ipratropium 3 ml 01/19/19 01:00 01/22/19 12:47 Duoneb NEB 3 ml [id number] EAN Administration Aspirin 81 mg 01/15/19 09:00 01/22/19 09:43 Ecotrin PO 81 mg DAILY AEN Administration Insulin Glargine 10 units/ 0.1 mls @ 0 mls/hr 01/13/19 21:00 01/21/19 21:07 Miscellaneous Medication SC 0.1 mls HS EAN Administration Insulin Glargine 10 units/ 0.1 mls @ 0 mls/hr 01/13/19 09:00 01/22/19 09:43 Miscellaneous Medication SC 0.1 mls QAM EAN Administration Linezolid 600 mg/ Device 300 mls @ 150 mls/hr 01/20/19 09:00 01/22/19 09:43 IVPB 300 mls Q12HR EAN Administration Insulin Human Lispro 0 units 01/13/19 04:12 01/20/19 16:17 Humalog SC 2 unit .MODERATE SLIDING SC PRN Administration Moderate Correctional Scale Insulin Human Lispro 6 units 01/13/19 08:00 01/22/19 12:50 Humalog SC 6 units TID-WM EAN Administration Insulin Human NPH 20 unit 01/14/19 21:00 01/21/19 21:08 Humulin N SC 20 units QPM EAN Administration Insulin Human NPH 20 unit 01/15/19 09:00 01/22/19 09:44 Humulin N SC Not Given QAM EAN Lactulose 20 gm 01/14/19 21:00 01/22/19 09:43 Lactulose PO 20 gm BID EAN Administration Morphine Sulfate 2 mg 01/13/19 11:38 01/20/19 23:15 Morphine SLOW IVP 2 mg Q6H PRN Administration Severe Pain (7-10) Phenol 180 ml 01/20/19 11:17 01/21/19 21:07 Chloraseptic Stanton 180 Ml Bot PO 1 spr BIDPRN PRN Administration Sore Throat Propranolol HCl 20 mg 01/14/19 21:00 01/22/19 09:44 Inderal PO 20 mg BID EAN Administration Sodium Bicarbonate 325 mg 01/19/19 15:00 01/22/19 09:44 Bicarbonate, Sodium PO 325 mg TID EAN Administration Sodium Chloride 10 ml 01/13/19 21:00 01/22/19 09:52 Flush - Normal Saline IVF 10 ml Q12HR EAN Administration Sodium Chloride 10 ml 01/13/19 09:57 01/15/19 14:33 Flush - Normal Saline IVF 10 ml PRN PRN Administration Saline Flush Tuberculin PPD 0.1 ml 01/22/19 10:30 01/22/19 12:47 Tuberculin Ppd I-DERMAL 01/25/19 10:31 0.1 ml NOW EAN Administration - Exam General Appearance: NAD, awake alert Eye: PERRL ENT: normocephalic atraumatic, moist mucosa Neck: supple, symmetric, no lymphadenopathy Heart: no murmur, no gallops, no rubs Respiratory: CTAB, no wheezes, no rales, no ronchi Gastrointestinal: non-tender, no guarding, distended Gastrointestinal - other findings: Firm distended abdomen, non tender to palpation. Extremities - other findings: 4+ LE Edema, +3 UE Edema Skin: no rashes Neurological: cranial nerve grossly intact, no focal deficits Musculoskeletal: generalized weakness Psychiatric: oriented to person, oriented to place, flat affect Hosp A/P (1) Bacteremia due to Gram-positive bacteria Code(s): R78.81 - BACTEREMIA Status: Acute (2) DM type 2 (diabetes mellitus, type 2) Status: Chronic Qualifiers: Diabetes mellitus termite control representative insulin use: with [facility] use Diabetes mellitus complication status: with hyperglycemia Qualified Code(s): E11.65 - Type 2 diabetes mellitus with hyperglycemia; Z79.4 - supervisor intermediates (current) use of insulin (3) Diabetes Code(s): E11.9 - TYPE 2 DIABETES MELLITUS WITHOUT COMPLICATIONS Status: Chronic (4) Hyponatremia Code(s): E87.1 - HYPO-OSMOLALITY AND HYPONATREMIA Status: Resolved (5) Liver cancer Code(s): C22.9 - MALIG NEOPLASM OF LIVER, NOT SPECIFIED PRIMARY OR SEC Status: Chronic (6) Sepsis Code(s): A41.9 - SEPSIS, UNSPECIFIED ORGANISM Status: Resolved Qualifiers: Sepsis type: methicillin susceptible Staphylococcus aureus Sepsis acute organ dysfunction status: without acute organ dysfunction Qualified Code(s): A41.01 - Sepsis due to Methicillin susceptible Staphylococcus aureus (7) Thrombocytopenia Code(s): D69.6 - THROMBOCYTOPENIA, UNSPECIFIED Status: Chronic (8) Cirrhosis of liver Code(s): K74.60 - UNSPECIFIED CIRRHOSIS OF LIVER Status: Chronic Qualifiers: Ascites presence: unspecified - Plan Plan: [facility] GI consultation, recommendations patient Pulm/ cc consultation, recommendations patient infectious disease consultation, recommendations patient nephrology consultation, recommendations appreciated oncology consultation, recommendations appreciated will need outpatient follow- up for liver mass Pulm status improved, breathing more comfortably on low flow NC now Will require HD, after HD cath placed Abd ultrasound initially negative for portal vein thrombosis now shows thrombus - Start Heparin Drip after HD cath placed Repeat blood cultures initially negative, now positive 1/2 Repeat blood cultures, if cannot sterilize blood would need ESTRADA MRSA in urine and blood with sensitivity to vancomycin and Linezolid Continue Linezolid, responding well renal ultrasound ruled out obstruction Scrotal US neg for mass of vascular abnormalities Increase lactulose chronic therapy to lower ammonia and avoid hepatic encephalopathy continue other home medications as able Disposition: Short and termite control representative prognosis is guarded. Patient with hepatitis C , liver mass, cirrhosis, hepatic encephalopathy, now portal vein thrombosis and acute renal failure in the setting of MRSA resistant bacteremia. Less aggressive measures/code status should be addressed. Palliative care consult/ spiritual consult.
[2019-01-22 17:31] LABS: INR-International Normal Ratio 1.8; Prothrombin Time 21.2 SEC (12.0-14.7)
[2019-01-22 17:32] LABS: PTT 77.9 SEC (22.9-36.1)
[2019-01-22 17:49] LABS: Hemoglobin 10.2 g/dL (14.0-18.0); Platelet Count 83 thou/uL (130-400)
[2019-01-22] MEDS: Heparin 25,000 units/D5W 500 ML IVPB SCH (19:01)
[2019-01-22] MEDS: Albumin 25% 25 GM/100 ML BOT IVPB SCH (21:42)
[2019-01-22] MEDS: Insulin Glargine 20 UNITS in Pre-Filled Syringe SC SCH (21:43)
--- NOTE | 2019-01-23 00:09 | CON ---
DATE OF CONSULTATION: HISTORY OF PRESENT ILLNESS: Alexys Thompson is a 53-year-old male, [employer] inmate, accompanied by guards in the room. I have been asked to see him regarding placement of hemodialysis catheter. He is fluid overloaded. He has acute renal failure. He had near normal renal function on admission. I am told he has history of liver cancer. He has a PICC line in left arm. He is admitted with right hip pain, fever and chills. He is diabetic and has been having trouble with glucose control recently. The patient has hepatocellular carcinoma and has an embolization therapy and reports metastasis to his lungs. He has been undergoing chemotherapy for the past years. Echocardiogram performed. His EF is 65% to 70%. Normal LV size. CT scan of the abdomen and pelvis, cirrhosis finding with 8 cm mass in the posterior right lobe consistent with hepatocellular carcinoma. ALLERGIES: INTERFERONS. SOCIAL HISTORY: The patient is incarcerated. Tobacco and alcohol none. History of hepatitis C. MEDICATIONS: Outpatient in [facility]; 1. Propranolol. 2. Insulin. 3. Lactulose. 4. Aspirin. PHYSICAL EXAMINATION: GENERAL: The patient is edematous. He is slightly dyspneic. VITAL SIGNS: Temperature 97.3, respiratory rate 24, blood pressure 108/48. LUNGS: Clear to auscultation. EXTREMITIES: Edematous scrotum. CARDIAC: Regular rate and rhythm. ABDOMEN: Soft. SKIN: Tattoos, right thigh. LABORATORY DATA: White count 16, hemoglobin 10.6. Sodium 127, carbon dioxide 16, creatinine 4.66, GFR 13. The patient on admission had a GFR of 68 nine days ago. ASSESSMENT AND PLAN: Acute renal failure. Plan placement of a hemodialysis catheter for fluid mobilization, hopefully his renal function will improve. Urine output is 600 for the last 24 hours, 2.3 L the day prior. He has PICC line in left arm. Avoid IV access, blood draws above his wrist. Preserve veins. Job ID: [id number]
[2019-01-23 01:43] LABS: PTT Greater than 250.0 SEC (22.9-36.1)
--- NOTE | 2019-01-23 01:53 | CON ---
DATE OF CONSULTATION: 01/22/2019 REASON FOR CONSULTATION: Portal vein thrombosis. CONSULTING PROVIDER: Dr. Shruti Franks. HISTORY OF PRESENT ILLNESS: The patient is a 53-year-old male with past medical history of diabetes, hypertension, chronic hepatitis C, and hepatocellular carcinoma with metastatic disease to the lung (treated with chemoembolization and oral chemotherapy) initially presenting with fever, hypotension, lactic acidosis, and hyperglycemia. During the course of this hospitalization, the patient has had a fairly complicated hospital course with initial diagnosis of MRSA bacteremia and ultimately placed on IV vancomycin. However, shortly after initiation of this antibiotic therapy, he was noted to have acute kidney injury, presumably from the nephrotoxic effects of vancomycin and was ultimately switched over to linezolid; however, during the last 2 to 3 days, he has had worsening renal function with a steadily rising creatinine, prompting the placement of a femoral catheter and ultimately undergoing dialysis later in the evening. He does also have a concurrent diagnosis of cirrhosis of the liver that has resulted in hepatocellular carcinoma and had been undergoing treatment for this condition prior to admission. On this admission however, he did have a CT scan that was performed on January 13, 2019, which shows small clot formation within the right hepatic vein consistent with portal vein thrombosis. However, during the course of this hospitalization, it seems he has had worsening of the portal vein thrombosis with an ultrasound obtained on January 22, 2019, now showing no flow within the portal vein itself and almost near occlusion within the right portal vein as well. He has also been having increased anasarca and ascites over the last few days as well, presumably from his worsening renal function but could also be contributed to worsening hepatic function with portal vein thromboses. Currently, he states he is doing okay with no acute events or problems overnight. He has that with the current regimen that he is on that he is breathing better and increased work of breathing. Otherwise, he denies any nausea, vomiting, fevers, chills, hematemesis, melena, hematochezia, dysphagia, or odynophagia. REVIEW OF SYSTEMS: A 10-category review of systems was obtained with all responses negative except for the pertinent positives as listed in HPI. PAST MEDICAL HISTORY: As per HPI. PAST SURGICAL HISTORY: None. FAMILY HISTORY: Denies any GI malignancies. SOCIAL HISTORY: Currently incarcerated with no stated use of tobacco, alcohol, or illicit drug use. MEDICATIONS: Outpatient medications/inpatient medications, reviewed. ALLERGIES: INTERFERON. PHYSICAL EXAMINATION: VITAL SIGNS: Temperature 97.3, pulse 74, blood pressure 99/39, respiratory rate 10, and saturating 100% on room air. GENERAL: The patient was lying in bed, in no acute distress. Alert and oriented x4. HEENT: Normocephalic and atraumatic. NECK: Supple. No JVD noted and no scleral icterus. CARDIOVASCULAR: Regular rate and rhythm with no discernible murmurs, gallops, or rubs. RESPIRATORY: Clear to auscultation bilaterally with no discernible wheezes or rales. ABDOMEN: Normoactive bowel sounds. Soft. Mild tenderness in the periumbilical region. [id number] abdominal distention with shifting dullness. EXTREMITIES: Nonpitting edema noted up to mid thigh bilaterally. LABORATORY DATA: CBC with a white blood cell count of 16.8, hemoglobin 10.2, hematocrit 30.1, and platelets 83. INR 1.8. Chemistry with a sodium of 127, potassium 4.1, chloride 100, CO2 of 16, BUN 77, creatinine 4.66, and glucose 224. AST 69, ALT 31, alkaline phosphatase 248, total bilirubin 1.8, albumin 1.6, and calculated MELD score of 32. Microbiology showing blood cultures and urine cultures initially positive for MRSA but are since negative. IMAGING DATA: CT of the abdomen and pelvis obtained on January 13, 2019 showed cirrhotic morphology with an 8-cm mass within the right liver lobe in addition to trace ascites, splenorenal varices, and evidence of portal hypertension with multiple varices and a small portal vein thrombosis within the right hepatic vein. Right upper quadrant ultrasound obtained on January 22, 2019, showed the common bile duct measuring 6 mm in size along with cirrhotic morphology. Splenic varices were also seen, but no flow was seen within the portal vein consistent with portal vein thrombosis. ASSESSMENT AND PLAN: The patient is a 53-year-old male with past medical history of diabetes, hypertension, chronic hepatitis C, cirrhosis, and hepatocellular carcinoma with metastatic disease to the lungs, presenting with MRSA bacteremia, acute kidney injury requiring hemodialysis, that could also be hepatorenal syndrome and cirrhosis with new, acute onset of portal vein thrombosis. Acute portal vein thrombosis. The patient is presenting with imaging on January 13 showing evidence of portal vein thrombosis on admission within the right hepatic vein; however, during the course of this admission, he has been having slowly worsening of the thrombosis within the portal system, now showing complete occlusion of the main hepatic vein. At this time, the more likely reasons for the formation of thromboses in this region include cirrhosis, hepatocellular carcinoma, and abdominal sepsis secondary to his MRSA bacteremia. With increasing size of the thromboses, he is a candidate for anticoagulation, but would need careful monitoring in an intermediate care setting at least. Due to his increased risk of bleeding based on his concurrent diagnosis of cirrhosis, the goal of treatment would be to recanalize the hepatic vein and prevent further extension into the superior mesenteric vein. They could ultimately lead to intestinal infarction. RECOMMENDATIONS: 1. Agree with anticoagulation in this patient with heparin drip and ultimately transferring to oral anticoagulation for at least the next 3-6 months as part of the acute onset of portal vein thrombosis. 2. Would attempt to treat the underlying cause of his portal vein thrombosis including abdominal sepsis from MRSA. 3. Would carefully monitor the patient's H and H over the next few days as the patient has had a significantly increased risk of bleeding either from IV dialysis sites or within the hepatocellular carcinoma itself. 4. If the patient experience any further decompensation, I would recommend transferring the patient to a tertiary care center at [facility]. 5. Cirrhosis. The patient is presenting with a prior diagnosis of cirrhosis with most likely etiology being chronic hepatitis C infection and complicated by hepatocellular carcinoma with metastatic disease to the lungs. Currently, he is presenting with decompensated disease with a MELD score of 32 (carrying a 65% 90 day mortality) and Child-Delgado classification C. There is no current EGD or colonoscopy in his chart available for review with esophageal varix status unknown at this time. However, with the size of his hepatocellular carcinoma at 8 cm and presence of metastatic disease, his overall prognosis is poor with the patient not currently being a transplant candidate. 6. We would attempt to avoid any potentially hepatotoxic medications during this admission. 7. We would carefully monitor the patient's blood pressure in light of MRSA sepsis and a concurrent administration of propranolol 20 mg b.i.d. 8. Would explore end-of-life issues with the patient given his relatively poor prognosis and significantly elevated 90-day mortality. 9. Acute kidney injury/possible hepatorenal syndrome. The patient is initially presenting with MRSA bacteremia for which the patient underwent IV fluid resuscitation and placement of IV vancomycin. However, during the course of this admission, he has been having steadily worsening renal function as evidenced by an elevated BUN and creatinine. Currently, this is felt to be due to administration of vancomycin, but could also be an element of hepatorenal syndrome given his end-stage liver disease. Given the rapid decline of his renal function, if this is hepatorenal syndrome, then it would be considered type 1 and may not respond to therapies. However, use of dialysis and albumin in order to restore kidney perfusion may be indicated at this time in order to attempt to repair any damage on the kidneys. 10. We would start administration of albumin 25 mg 4 times daily in attempt to maintain blood volume and increase perfusion to the kidneys. 11. Agree with hemodialysis at least for the short term. 12. Would continue to obtain serial chemistries to monitor his renal function. 13. If the patient continues to have worsening renal function despite administration of albumin and hemodialysis, Palliative Care consult would be indicated. 14. Would attempt to avoid any potentially renal toxic medications including diuretics at this time. We will continue to follow. Please call with any questions. Job ID: [id number]
[2019-01-23 04:04] LABS: Anion Gap 19 mmol/L (10-20); BUN (Urea Nitrogen) 72 mg/dL (8.4-25.7); Calc. Creatinine Clearance 23 mL/min (70-130); Calcium 7.1 mg/dL (7.8-10.44); Carbon Dioxide 15 mmol/L (22-29); Chloride 100 mmol/L (98-107); Estimated GFR-MDRD 12; Glucose 209 mg/dL (70-105); Potassium 4.5 mmol/L (3.5-5.1); Sodium 129 mmol/L (136-145)
[2019-01-23] MEDS: Propranolol HCl 20 MG TAB PO SCH ×3 (04:41→20:20)
[2019-01-23] MEDS: HumaLOG 300 UNITS/3 ML VIAL SC PRN ×2 (06:54→18:26)
--- NOTE | 2019-01-23 08:32 | OP ---
DATE OF PROCEDURE: 01/22/2019 PREOPERATIVE DIAGNOSIS: Acute renal failure, volume overload. POSTOPERATIVE DIAGNOSIS: Acute renal failure, volume overload. PROCEDURE PERFORMED: Right femoral vein Trialysis catheter. ANESTHESIA: 1% Xylocaine. DESCRIPTION OF PROCEDURE: With the patient at bedside, right thigh was clipped of hair, prepared with ChloraPrep and draped in routine fashion. 1% Xylocaine was infiltrated in the skin and subcutaneous tissue. Trocar catheter was cannulated in the femoral vein. J-wire placed. Trocar catheter removed. Skin site was enlarged sharply. Smaller and medium size dilators placed over the J-wire into the femoral vein and removed. The distal port of the Trialysis catheter placed over the J-wire into the vena cava and J-wire removed. Each port aspirated blood, flushed with heparinized saline solution. Catheter secured with 2 interrupted sutures of 3-0 silk. Sterile dressing applied. Job ID: [id number]
[2019-01-23] MEDS ORDERED: Heparin 10,000 UNITS/ 10 ML VIAL ONE (09:00)
[2019-01-23] MEDS: Linezolid 600 MG in Premix Bag 1 BAG IVPB SCH ×2 (09:21→12:14)
[2019-01-23] MEDS: Albumin 25% 25 GM/100 ML BOT IVPB SCH ×4 (09:21→20:18)
[2019-01-23] MEDS: Aspirin 81 mg Enteric Coated Tablet PO SCH (09:34)
[2019-01-23] MEDS: Sodium Bicarbonate Tab 325 MG TAB PO SCH ×3 (09:37→20:20)
--- NOTE | 2019-01-23 10:14 | PRG ---
DATE OF SERVICE: 01/23/2019 SUBJECTIVE: The patient had one session of dialysis yesterday. He is breathing better today. He was also diagnosed with portal vein thrombosis and is now anticoagulated on a heparin drip. He is about to start another session of dialysis this morning. PHYSICAL EXAMINATION: VITAL SIGNS: His temperature is 97.2, pulse 76, blood pressure 151/61, O2 saturation 99%. A 24-hour intake 910, output 200+ what was removed by dialysis. HEENT: Unremarkable. NECK: No adenopathy or JVD. CHEST: Fairly clear anteriorly. CARDIAC: S1 and S2, regular. ABDOMEN: Soft. EXTREMITIES: Edematous. LABORATORY DATA: Looks like a blood culture is growing out yeast. He is currently on linezolid, but no antifungal coverage. ASSESSMENT: 1. Alise bloodstream infection. 2. Portal vein thrombosis. 3. Acute on chronic renal failure. PLAN: 1. Go ahead and start micafungin, pending further cultures. 2. Await for further input from Dr. Bernal. 3. Continue linezolid. 4. Continue anticoagulation. 5. Continue hemodialysis. Job ID: [id number]
[2019-01-23] MEDS ORDERED: Benzonatate 100 MG CAP PO PRN (10:24)
[2019-01-23 11:02] LABS: #Lymphocytes 0.8 thou/uL (1.20-3.40); #Monocytes 0.4 thou/uL (0.11-0.59); #Neutrophils 9.4 thou/uL (1.40-6.50); %Basophils 0.2 % (0.0-1.0); %Eosinophils 0.2 % (0.0-10.0); %Lymphocytes 7.7 % (21.0-51.0); %Monocytes 3.6 % (0.0-10.0); %Neutrophils 88.3 % (42.0-75.0); Hemoglobin 9.9 g/dL (14.0-18.0); Mean Corpuscular HGB CONC 34.2 g/dL (32.0-36.0); Mean Corpuscular Hemoglobin 27.7 pg (27.0-31.0); Mean Corpuscular Volume 80.9 fL (78.0-98.0); Mean Platelet Volume 8.2 fL (7.4-10.4); Platelet Count 76 thou/uL (130-400); RBC Distribution Width 18.1 % (11.5-14.5); Red Blood Cell (RBC) Count 3.58 mill/uL (4.70-6.10); White Blood Cell (WBC) Count 10.6 thou/uL (4.8-10.8)
[2019-01-23] MEDS: HumaLOG 300 UNITS/3 ML VIAL SC SCH ×3 (11:03→18:26)
[2019-01-23] MEDS: Tuberculin PPD 0.1 ML VIAL I-DERMAL SCH (11:04)
--- NOTE | 2019-01-23 11:43 | PRG ---
DATE OF SERVICE: 01/23/2019 SUBJECTIVE: Patient was seen and examined at bedside and overnight events noted. Patient denies any shortness of breath or chest pain or palpitation. No history of nausea or vomiting or diarrhea or fever or chills or cramps. OBJECTIVE: GENERAL: This is a well-built male, in no apparent distress. VITAL SIGNS: Temperature 97.2. Heart rate 76. Respiratory rate 20. Blood pressure 115/61. HEENT: Atraumatic, normocephalic. Oral mucosa is moist NECK: Supple. CARDIOVASCULAR: S1, S2 heard. Rate and rhythm regular. RESPIRATORY: Clear to auscultation. GASTROINTESTINAL: Abdomen is soft. MUSCULOSKELETAL: No tenderness. No edema. DERMATOLOGIC: No skin rash. NEUROLOGIC: Alert and awake and oriented X3. No focal neurologic deficits. Moving all the extremities. PSYCHIATRIC: Mood and affect normal. LABORATORY DATA: Potassium 4.5, BUN is 72, and creatinine is 4.9. ASSESSMENT AND PLAN: 1. Acute kidney injury on chronic kidney stage 3, most likely hepatorenal, is being like hepatorenal and prognosis is guarded. Started on dialysis, but long-term prognosis is unclear at this point. Primary team is considering palliative care, and family was also at the bedside and understands the poor prognosis. 2. Edema. We will continue to remove fluid with dialysis as tolerated. 3. History of hypertension. 4. Anemia of chronic disease. 5. Hepatorenal syndrome. 6. History of hepatitis C and cirrhosis. 7. Prognosis is guarded. We will continue dialysis as tolerated. Job ID: [id number]
[2019-01-23] MEDS: Micafungin 100 MG in Sodium Chloride 0.9% 100 ML IVPB SCH (12:15)
[2019-01-23] MEDS: Insulin Glargine 20 UNITS in Pre-Filled Syringe SC SCH ×2 (12:16→20:18)
--- NOTE | 2019-01-23 15:05 | PDOC.HOSPP ---
- Subjective Subjective: Seen and examined. Starting another round of HD. Remains very edematous. Now with fungemia. Patient's , daughter, and sister at bedside. I had a long maryuri conversation with the patient and family considering his grave prognosis. I explained all disease pathology that is currently undergoing in a way that they could understand. I gave time to answer questions, All questions answered in detail. Prognosis guarded. - Objective Vital Signs & Weight: Vital Signs (12 hours) Temp Pulse Resp Pulse Ox 01/23/19 13:14 73 19 01/23/19 11:14 97.6 F 01/23/19 08:00 98 01/23/19 07:38 77 23 H 01/23/19 07:24 97.2 F L 01/23/19 04:00 98.2 F Weight Admit Weight 169 lb Weight 210 lb 8 oz Most Recent Monitor Data Heart Rate from ECG 74 NIBP 101/45 NIBP BP-Mean 63 Respiration from ECG 18 SpO2 99 I&O: 01/22/19 01/23/19 01/24/19 06:59 06:59 06:59 Intake Total 910 700 Output Total 200 200 Balance 710 500 Result Diagrams: 01/23/19 10:38 01/23/19 03:36 Additional Labs: Accuchecks 01/23/19 01/23/19 01/22/19 10:39 06:11 20:45 POC Glucose 201 H 195 H 116 H 01/22/19 17:18 POC Glucose 123 H Radiology Reviewed by me: Yes (US abdomen) Hospitalist ROS - Review of Systems All other systems reviewed; all pertinent +/- noted in HPI/Subj - Medication Medications: Active Medications Generic Name Dose Route Start Last Admin Trade Name Freq PRN Reason Stop Dose Admin Acetaminophen 650 mg 01/13/19 04:08 01/22/19 00:56 Tylenol PO 650 mg Q4H PRN Administration Headache/Fever/Mild Pain (1-3) Albumin Human 25 gm 01/22/19 21:00 01/23/19 12:15 Albumin 25% IVPB 01/24/19 21:01 25 gm QID EAN Administration Albuterol/Ipratropium 3 ml 01/18/19 20:49 01/20/19 04:08 Duoneb NEB 3 ml Q4H PRN Administration SOB &/or Wheezing Albuterol/Ipratropium 3 ml 10/26/19 01:00 01/23/19 13:14 Duoneb NEB 3 ml [id number] EAN Administration Aspirin 81 mg 01/15/19 09:00 01/23/19 09:34 Ecotrin PO 81 mg DAILY EAN Administration Linezolid 600 mg/ Device 300 mls @ 150 mls/hr 01/20/19 09:00 01/23/19 12:14 IVPB 300 mls Q12HR EAN Administration Insulin Glargine 20 units/ 0.2 mls @ 0 mls/hr 01/22/19 21:00 01/23/19 12:16 Miscellaneous Medication SC 0.2 mls BID EAN Administration Heparin Sodium/Dextrose 500 mls @ 0 mls/hr 01/22/19 17:30 01/22/19 19:01 Heparin 25,000 Units/D5w 500 Ml IVPB 500 mls INF EAN Administration Protocol Per Protocol Micafungin Sodium 100 mg/ 100 mls @ 100 mls/hr 01/23/19 11:00 01/23/19 12:15 Sodium Chloride IVPB 100 mls 1100 EAN Administration Insulin Human Lispro 0 units 01/13/19 04:12 01/23/19 06:54 Humalog SC 2 unit .MODERATE SLIDING SC PRN Administration Moderate Correctional Scale Insulin Human Lispro 6 units 01/13/19 08:00 01/23/19 12:15 Humalog SC 6 units TID-WM EAN Administration Lactulose 20 gm 01/22/19 21:00 01/23/19 09:34 Lactulose PO 20 gm QID EAN Administration Phenol 180 ml 01/20/19 11:17 01/21/19 21:07 Chloraseptic [place] 180 Ml Bot PO 1 spr BIDPRN PRN Administration Sore Throat Propranolol HCl 20 mg 01/14/19 21:00 01/23/19 12:14 Inderal PO Not Given BID EAN Sodium Bicarbonate 325 mg 01/19/19 15:00 01/23/19 09:37 Bicarbonate, Sodium PO 325 mg TID EAN Administration Sodium Chloride 10 ml 01/13/19 21:00 01/23/19 11:04 Flush - Normal Saline IVF Not Given Q12HR EAN Sodium Chloride 10 ml 01/13/19 09:57 01/15/19 14:33 Flush - Normal Saline IVF 10 ml PRN PRN Administration Saline Flush Tuberculin PPD 0.1 ml 01/22/19 10:30 01/23/19 11:04 Tuberculin Ppd I-DERMAL 01/25/19 10:31 Not Given NOW EAN - Exam General Appearance: ill appearing Eye: PERRL ENT: normocephalic atraumatic Neck: supple, symmetric, no lymphadenopathy Heart: no murmur, no gallops, no rubs Respiratory: CTAB, no wheezes, no ronchi, rales Gastrointestinal: non-tender, no guarding, distended Gastrointestinal - other findings: Firm distended abdomen, non tender. Extremities - other findings: 4+ upper and lower extremity edema Skin: no lesions, no rashes Neurological: cranial nerve grossly intact, no focal deficits Musculoskeletal: generalized weakness Psychiatric: normal affect, A&O x 3 Hosp A/P (1) Bacteremia due to Gram-positive bacteria Code(s): R78.81 - BACTEREMIA Status: Acute (2) DM type 2 (diabetes mellitus, type 2) Status: Chronic Qualifiers: Diabetes mellitus termite treater insulin use: with termite treater use Diabetes mellitus complication status: with hyperglycemia Qualified Code(s): E11.65 - Type 2 diabetes mellitus with hyperglycemia; Z79.4 - shelter (current) use of insulin (3) Diabetes Code(s): E11.9 - TYPE 2 DIABETES MELLITUS WITHOUT COMPLICATIONS Status: Chronic (4) Hyponatremia Code(s): E87.1 - HYPO-OSMOLALITY AND HYPONATREMIA Status: Resolved (5) Liver cancer Code(s): C22.9 - MALIG NEOPLASM OF LIVER, NOT SPECIFIED PRIMARY OR SEC Status: Chronic (6) Sepsis Code(s): A41.9 - SEPSIS, UNSPECIFIED ORGANISM Status: Resolved Qualifiers: Sepsis type: methicillin susceptible Staphylococcus aureus Sepsis acute organ dysfunction status: without acute organ dysfunction Qualified Code(s): A41.01 - Sepsis due to Methicillin susceptible Staphylococcus aureus (7) Thrombocytopenia Code(s): D69.6 - THROMBOCYTOPENIA, UNSPECIFIED Status: Chronic (8) Cirrhosis of liver Code(s): K74.60 - UNSPECIFIED CIRRHOSIS OF LIVER Status: Chronic Qualifiers: Ascites presence: unspecified (9) Fungemia Code(s): B49 - UNSPECIFIED MYCOSIS Status: Acute - Plan Plan: [facility]MCU Cardiology consultation, recommendations patient - May need ESTRADA to rule out endocarditis GI consultation, recommendations patient Pulm/ cc consultation, recommendations patient infectious disease consultation, recommendations patient nephrology consultation, recommendations appreciated oncology consultation, recommendations appreciated will need outpatient follow- up for liver mass Started on Micafungin for fungemia, hepatic and renal toxicity concerns Pulm status improved, breathing more comfortably on low flow NC now HD per nephrology HD cath placed Abd ultrasound initially negative for portal vein thrombosis now shows thrombus - continue Heparin Drip after HD cath placed Repeat blood cultures 1/2 MRSA Repeat blood cultures, with fungemia Initial blood cultures with 2/2 MRSA MRSA in urine and blood with sensitivity to vancomycin and Linezolid Continue Linezolid, responding well renal ultrasound ruled out obstruction Scrotal US neg for mass of vascular abnormalities Increased lactulose chronic therapy to lower ammonia and avoid hepatic encephalopathy continue other home medications as able Disposition: Short and termite treater prognosis is guarded. Patient with hepatitis C , liver mass with mets to lung, cirrhosis, hepatic encephalopathy, portal vein thrombosis, acute renal failure, in the setting of MRSA resistant bacteremia and now Fungemia. Less aggressive measures/code status should be addressed. Palliative care consult/ spiritual consult. If not interested in palliative care may need transfer to higher level of care.
--- NOTE | 2019-01-23 18:36 | PRG ---
DATE OF SERVICE: 01/23/2019 REASON FOR CONSULTATION: Cirrhosis, portal vein thrombosis, possible hepatorenal syndrome. SUBJECTIVE: The patient did well overnight with no acute events or problems. He did undergo dialysis earlier today with approximately 2 additional liters of fluid, withdrawn off during the session in addition to albumin infused during the session as well. Today, he states that his abdominal distention has decreased a little bit subjectively, but continues to have a significant amount of scrotal and lower extremity edema. He has had approximately 2 semi-solid bowel movements today with no difficulty with defecation. Otherwise, he denies any nausea, vomiting, fevers, chills, hematemesis, melena, or hematochezia. OBJECTIVE: VITAL SIGNS: Temperature 97.6, pulse 82, blood pressure 116/52, respiratory rate 21, and saturating 97% on room air. GENERAL: The patient is lying in bed, in no acute distress. Alert and oriented x4. CARDIOVASCULAR: Regular rate and rhythm. RESPIRATORY: Clear to auscultation bilaterally. ABDOMEN: Normoactive bowel sounds. Soft. Mild to moderate abdominal distention with shifting dullness. Mild tenderness to palpation in the periumbilical/suprapubic region. LABORATORY DATA: CBC with a white blood cell count of 10.6, hemoglobin 9.9, hematocrit 28.9, and platelets 76. PTT 39.1. Chemistry; sodium of 129, potassium of 4.5, chloride 100, CO2 of 15, BUN 72, creatinine 4.9, and glucose 209. Microbiology with recent blood culture on January 21, 2019, positive for yeast forms with one of two cultures set positive. IMAGING DATA: No current GI imaging is available for review. ASSESSMENT AND PLAN: The patient is a 53-year-old male with past medical history of diabetes, hypertension, chronic hepatitis C, hepatocellular carcinoma with metastatic disease to the lungs and cirrhosis complicated by hepatic encephalopathy and now portal vein thrombosis, presenting with methicillin-resistant Staphylococcus aureus bacteremia, acute kidney injury requiring hemodialysis and possible hepatorenal syndrome. Acute portal vein thrombosis: During the course of this admission, the patient has had a slow occlusion of the portal system with completed occlusion of the right portal vein and partial occlusion of the main portal vein at this time. He was subsequently placed on a heparin drip for anticoagulation to prevent extension into the superior mesenteric vein and ultimately to infarction of the small bowel. Currently, doing well with no evidence of GI or bleeding from IV lines, but will still need careful monitoring for his increased risk of bleeding in light of cirrhosis of the liver. Recommendations: 1. We would continue anticoagulation with careful monitoring the patient for signs of bleeding. 2. Agree with antibiotic therapy for treatment of methicillin-resistant Staphylococcus aureus bacteremia and fungemia. Cirrhosis: The patient is presenting with a prior diagnosis of cirrhosis with most likely etiology being chronic hepatitis C infection, complicated by hepatocellular carcinoma with metastatic disease to the lungs, currently presenting with decompensated disease with MELD score of 32 (calculated on January 22, 2019, with Child-Delgado classification C). Given the evidence of hepatocellular carcinoma that has undergone previous treatments and worsening renal failure, EGD and colonoscopy are not necessarily indicated at this time given lack of overt GI bleeding. Recommendations: 1. We would attempt to avoid any potentially hepatotoxic medications during this admission. 2. Continue to monitor the patient's blood pressure in light of methicillin-resistant Staphylococcus aureus sepsis and concurrent administration of propranolol 20 mg b.i.d. Acute kidney injury/possible hepatorenal syndrome: The patient initially presented with methicillin-resistant Staphylococcus aureus bacteremia for which the patient underwent IV fluid resuscitation and IV vancomycin. However, during the course of this admission, he has been having steadily worsening renal function despite removal of the vancomycin and administration of dialysis. During the course of today, the patient has gotten multiple doses of albumin, and attempt to restore effective blood volume, but has since had an increase in his creatinine despite this measure so far given the rapid decline in his renal function and lack of response to dialysis so far, this could be indicative of hepatorenal syndrome type 1; in which case, the patient's prognosis would be extremely poor. Recommendations: 1. We would continue albumin 25 mg 4 times daily in an attempt to maintain effective circulating blood volume and increase perfusion to the kidneys. 2. We would defer to Nephrology Service for hemodialysis. 3. We would continue to obtain serial chemistries. Monitor renal function and liver function. 4. Would start patient on midodrine 7.5mg three times daily along with octreotide drip for further treatment of possible hepatorenal syndrome 5. If the patient continues to have worsening renal function, I would have a low threshold to transfer to a higher care facility. 6. Agree with palliative care consultation given the patient's grave prognosis and current medical comorbidities. We will continue to follow. Please call with any questions. Job ID: [id number]
[2019-01-23 18:54] LABS: PTT 152.6 SEC (22.9-36.1)
[2019-01-23] MEDS ORDERED: Midodrine HCl 5 MG TAB PO SCH (21:45)
[2019-01-23] MEDS: Octreotide Acetate 1,250 MCG in Sodium Chloride 0.9% 250 ML 250 ML IVPB SCH (21:57)
[2019-01-23] MEDS: Heparin 25,000 units/D5W 500 ML IVPB SCH (23:22)
[2019-01-24] MEDS: Chloraseptic Spray 180 ml Bottle PO PRN (03:06)
[2019-01-24] MEDS: Heparin 10,000 UNITS/ 10 ML VIAL SLOW IVP SCH ×2 (04:05→21:07)
[2019-01-24 04:17] LABS: Anion Gap 18 mmol/L (10-20); BUN (Urea Nitrogen) 61 mg/dL (8.4-25.7); Calc. Creatinine Clearance 26 mL/min (70-130); Calcium 7.7 mg/dL (7.8-10.44); Carbon Dioxide 20 mmol/L (22-29); Chloride 97 mmol/L (98-107); Estimated GFR-MDRD 14; Glucose 237 mg/dL (70-105); Potassium 4.4 mmol/L (3.5-5.1); Sodium 131 mmol/L (136-145)
[2019-01-24] MEDS: HumaLOG 300 UNITS/3 ML VIAL SC PRN ×2 (07:02→09:29)
[2019-01-24] MEDS ORDERED: READ PPD TEST SITE PO SCH (09:00)
[2019-01-24] MEDS ORDERED: Midodrine HCl 5 MG TAB PO SCH ×3 (09:00→12:30)
--- NOTE | 2019-01-24 09:27 | PRG ---
DATE OF SERVICE: 01/24/2019 SUBJECTIVE: He states that he is feeling much better today. He did some dialysis yesterday and got some fluid removed. OBJECTIVE: VITAL SIGNS: Temperature is 98, pulse 81, blood pressure 117/63, O2 saturation 96%. Intake 1140, output 250+, whatever was removed by dialysis. HEENT: Unremarkable. NECK: No adenopathy or JVD. LUNGS: Clear anteriorly. CARDIAC: S1, S2. Regular. ABDOMEN: Soft. EXTREMITIES: No edema. LABORATORY DATA: Sodium 131, potassium 4.4, chloride 97, CO2 of 20, BUN 61, creatinine 4.5, and glucose 237. His PTT is 62.5. White blood cell count 10.6, hematocrit 28.9, and platelet count 76. ASSESSMENT: 1. Portal vein thrombosis. 2. Fungemia. 3. Methicillin-resistant Staphylococcus aureus sepsis. 4. Cirrhosis. 5. Acute renal failure. PLAN: The patient appears to be doing relatively well despite all of his end-stage problems. I would continue with the micafungin and linezolid. Await for further identification of the yeast organism. Continue anticoagulation. At some point, he probably needs to be converted over to Coumadin. Job ID: [id number]
[2019-01-24] MEDS: Sodium Bicarbonate Tab 325 MG TAB PO SCH ×3 (09:28→20:03)
[2019-01-24] MEDS: Linezolid 600 MG in Premix Bag 1 BAG IVPB SCH ×2 (09:28→20:02)
[2019-01-24] MEDS: Aspirin 81 mg Enteric Coated Tablet PO SCH (09:29)
[2019-01-24] MEDS: Insulin Glargine 20 UNITS in Pre-Filled Syringe SC SCH ×2 (09:30→20:02)
[2019-01-24] MEDS: Propranolol HCl 20 MG TAB PO SCH ×2 (09:31→20:03)
[2019-01-24] MEDS: HumaLOG 300 UNITS/3 ML VIAL SC SCH ×3 (09:31→17:10)
--- NOTE | 2019-01-24 09:57 | PDOC.PALCO ---
Palliative Care Consult - Consult Details Requesting Physician: Dr Langford Reason for Consult: assistance with communication prognosis/disease, complex decision-making Family Members Present: None - Pertinent HPI 53 year old male with known liver cancer who has metastasis to the lung with treatment ongoing. Diabetic with unstable blood sugars as well as recent weight loss. Onset of fever and chills and pain to right collarbone and right hip both non radiating. Taken to hospital for evaluation from alf for fever, chills and pain. Evaluation led to admission for management of sepsis, hyponatremia, thrombocytopenia. Patient has a guarded prognosis secondary to multiple complex health conditions. - Pertinent PMH Liver cancer, history of lung cancer, DM 2, Hyponatremia, thrombocytopenia, - Social History Smoking Status: Former smoker Smoking: no tobacco exposure Living Situation: other (Inmate in Long-Term) - Allergies Allergies/Adverse Reactions: Allergies Allergy/AdvReac Type Severity Reaction Status Date / Time Interferons Allergy Verified 01/13/19 06:52 - Subjective Awake alert. No specific complaints at time of visit other than frequent bowel movements related to lactulose dose. ROS: 10 point review negative at time of assessment - Objective Vital Signs: Vital Signs - Most Recent Temp Pulse Resp BP Pulse Ox 98.0 F 82 22 H 113/70 95 01/24/19 03:09 01/24/19 08:10 01/24/19 08:10 01/21/19 09:20 01/24/19 08:10 Palliative Performance Scale: 40 - Physical Exam Constitutional: NAD HEENT: PERRLA, moist MMs, EOMI Cardiovascular: RRR Gastrointestinal: soft, non-tender, positive bowel sounds Deviation from normal: mild distension, tympani Musculoskeletal: pulses present, edema present Neurological: moves all 4 limbs Psychiatric: normal affect, A&O x 3 Skin: no rash, cap refill <2 seconds - Plan/Recommendations Plan: Visited with patient at length. Discussed each specific chronic condition using a "teach back method". Patient understanding of illnesses but desires to have all measures perused to extend his life. Discussed quality of days verses quantity of days. Discussed resuscitation status and that he could be a partial resuscitation measures, patient requested to have full resuscitation measures. When asked if patient had relayed to his MPOA his specific wishes he said no, encouraged to be specific with his in relation to his wishes to be carried forth when he is not able to speak for himself. *Continue with all medical treatments *Remain with full resuscitation measures in place *Define for his MPOA/ specific wishes if he is no longer able to speak for himself [60] minutes spent on this encounter with >50% of the time in counseling and coordination of care. Thank you for this very appropriate consult.
--- NOTE | 2019-01-24 10:44 | PRG ---
DATE OF SERVICE: 01/24/2019 SUBJECTIVE: Patient was seen and examined at bedside and overnight events noted. Patient denies any shortness of breath or chest pain or palpitation. No history of nausea or vomiting or diarrhea or fever or chills or cramps. OBJECTIVE: GENERAL: This is a well-built male, in no apparent distress. VITAL SIGNS: Temperature 98.0. Heart rate 82. Respiratory rate 20. Blood pressure 131/66. HEENT: Atraumatic, normocephalic. Oral mucosa is moist NECK: Supple. CARDIOVASCULAR: S1, S2 heard. Rate and rhythm regular. RESPIRATORY: Clear to auscultation. GASTROINTESTINAL: Abdomen is soft. MUSCULOSKELETAL: No tenderness. No edema. DERMATOLOGIC: No skin rash. NEUROLOGIC: Alert and awake and oriented X3. No focal neurologic deficits. Moving all the extremities. PSYCHIATRIC: Mood and affect normal. LABORATORY DATA: Potassium 4.4, BUN is 61, creatinine is 4.4. ASSESSMENT AND PLAN: 1. Acute kidney injury on chronic kidney stage 3, dialysis dependent. Had 2 sessions of dialysis so far. Plan is to hold dialysis today. Fluid removal is better. The patient's mentation seems to be little bit better. We will hold today dialysis and most likely need dialysis tomorrow. Monitor urine output and avoid nephrotoxins. 2. Edema. We will continue to remove dialysis as tolerated. 3. History of hypertension. 4. Anemia of chronic disease. 5. Hepatorenal syndrome. Prognosis remains poor. Continue discussion with the family and I will continue dialysis if tolerated. Job ID: [id number]
[2019-01-24 11:00] LABS: Hep C PCR-Quant HCV Not Detected IU/mL (.)
[2019-01-24 11:21] LABS: PTT 168.1 SEC (22.9-36.1)
[2019-01-24] MEDS: Micafungin 100 MG in Sodium Chloride 0.9% 100 ML IVPB SCH (12:10)
[2019-01-24] MEDS: Tuberculin PPD 0.1 ML VIAL I-DERMAL SCH (13:18)
--- NOTE | 2019-01-24 14:37 | PDOC.HOSPP ---
- Subjective Subjective: Seen and examined. More alert and awake. Patient tells me has had episodes of diarrhea, lactulose now effective at lowering pneumonia and he is thinking more clearly. Patient is less edematous in the hands and is breathing status has improved. Patient is no longer requiring supplemental oxygen to maintain O2 saturation's. Long-term prognosis remains poor, discussed with palliative care, patient continues to wish all aggressive measures. - Objective Vital Signs & Weight: Vital Signs (12 hours) Temp Pulse Resp Pulse Ox 01/24/19 13:44 75 18 93 L 01/24/19 08:10 82 22 H 95 01/24/19 08:00 96 01/24/19 03:09 98.0 F Weight Admit Weight 169 lb Weight 212 lb 1 oz Most Recent Monitor Data Heart Rate from ECG 76 NIBP 131/66 NIBP BP-Mean 87 Respiration from ECG 20 SpO2 95 I&O: 01/23/19 01/24/19 01/25/19 06:59 06:59 06:59 Intake Total 700 1140 Output Total 200 250 Balance 500 890 Result Diagrams: 01/23/19 10:38 01/24/19 02:35 Additional Labs: Accuchecks 01/24/19 01/24/19 01/23/19 12:18 06:23 20:52 POC Glucose 276 H 224 H 246 H 01/23/19 16:55 POC Glucose 205 H Radiology Reviewed by me: Yes Hospitalist ROS - Review of Systems All other systems reviewed; all pertinent +/- noted in HPI/Subj - Medication Medications: Active Medications Generic Name Dose Route Start Last Admin Trade Name Freq PRN Reason Stop Dose Admin Acetaminophen 650 mg 01/13/19 04:08 01/22/19 00:56 Tylenol PO 650 mg Q4H PRN Administration Headache/Fever/Mild Pain (1-3) Albuterol/Ipratropium 3 ml 01/18/19 20:49 01/20/19 04:08 Duoneb NEB 3 ml Q4H PRN Administration SOB &/or Wheezing Albuterol/Ipratropium 3 ml 01/19/19 01:00 01/24/19 13:44 Duoneb NEB 3 ml P3MP-PD EAN Administration Aspirin 81 mg 01/15/19 09:00 01/24/19 09:29 Ecotrin PO 81 mg DAILY EAN Administration Heparin Sodium (Porcine) 0 units 01/22/19 17:30 01/24/19 04:05 Heparin 1,000 Units/Ml (10 Ml) SLOW IVP 3,800 units ASDIR EAN Administration Protocol Linezolid 600 mg/ Device 300 mls @ 150 mls/hr 01/20/19 09:00 01/24/19 09:28 IVPB 300 mls Q12HR EAN Administration Insulin Glargine 20 units/ 0.2 mls @ 0 mls/hr 01/22/19 21:00 01/24/19 09:30 Miscellaneous Medication SC 0.2 mls BID EAN Administration Heparin Sodium/Dextrose 500 mls @ 0 mls/hr 01/22/19 17:30 01/23/19 23:22 Heparin 25,000 Units/D5w 500 Ml IVPB 500 mls INF EAN Administration Protocol Per Protocol Micafungin Sodium 100 mg/ 100 mls @ 100 mls/hr 01/23/19 11:00 01/24/19 12:10 Sodium Chloride IVPB 100 mls 1100 EAN Administration Octreotide Acetate 1,250 mcg/ 251.25 mls @ 10.05 mls/hr 01/23/19 21:30 21:57 Sodium Chloride IVPB 251.25 mls INF EAN Administration 50 MCG/HR Insulin Human Lispro 0 units 01/13/19 04:12 01/24/19 09:29 Humalog SC 6 unit .MODERATE SLIDING SC PRN Administration Moderate Correctional Scale Insulin Human Lispro 6 units 01/13/19 08:00 01/24/19 12:10 Humalog SC 6 units TID-WM EAN Administration Lactulose 20 gm 01/22/19 21:00 01/24/19 13:56 Lactulose PO Not Given QID EAN Phenol 180 ml 01/20/19 11:17 01/24/19 03:06 Chloraseptic [place] 180 Ml Bot PO 1 spr BIDPRN PRN Administration Sore Throat Propranolol HCl 20 mg 01/14/19 21:00 01/24/19 09:31 Inderal PO Not Given BID EAN Sodium Bicarbonate 325 mg 01/19/19 15:00 01/24/19 09:28 Bicarbonate, Sodium PO 325 mg TID EAN Administration Sodium Chloride 10 ml 01/13/19 21:00 01/24/19 09:31 Flush - Normal Saline IVF 10 ml Q12HR EAN Administration Sodium Chloride 10 ml 01/13/19 09:57 01/15/19 14:33 Flush - Normal Saline IVF 10 ml PRN PRN Administration Saline Flush Tuberculin PPD 0.1 ml 01/22/19 10:30 01/24/19 13:18 Tuberculin Ppd I-DERMAL 01/25/19 10:31 0.1 ml NOW EAN Administration - Exam General Appearance: NAD, awake alert Eye: PERRL, anicteric sclera ENT: normocephalic atraumatic, moist mucosa Neck: supple, no lymphadenopathy Heart: no murmur, no gallops, no rubs Respiratory: CTAB, no wheezes, no rales, no ronchi Gastrointestinal: non-tender, no guarding, no rigidity, distended Extremities - other findings: 4+ LE edema. +1 UE edema Skin: no lesions, no rashes Neurological: cranial nerve grossly intact, no focal deficits Musculoskeletal: no muscle wasting, generalized weakness Psychiatric: normal affect, A&O x 3 Hosp A/P (1) Bacteremia due to Gram-positive bacteria Code(s): R78.81 - BACTEREMIA Status: Acute (2) DM type 2 (diabetes mellitus, type 2) Status: Chronic Qualifiers: Diabetes mellitus intermodal customer service insulin use: with shelter use Diabetes mellitus complication status: with hyperglycemia Qualified Code(s): E11.65 - Type 2 diabetes mellitus with hyperglycemia; Z79.4 - care home (current) use of insulin (3) Diabetes Code(s): E11.9 - TYPE 2 DIABETES MELLITUS WITHOUT COMPLICATIONS Status: Chronic (4) Hyponatremia Code(s): E87.1 - HYPO-OSMOLALITY AND HYPONATREMIA Status: Resolved (5) Liver cancer Code(s): C22.9 - MALIG NEOPLASM OF LIVER, NOT SPECIFIED PRIMARY OR SEC Status: Chronic (6) Sepsis Code(s): A41.9 - SEPSIS, UNSPECIFIED ORGANISM Status: Resolved Qualifiers: Sepsis type: methicillin susceptible Staphylococcus aureus Sepsis acute organ dysfunction status: without acute organ dysfunction Qualified Code(s): A41.01 - Sepsis due to Methicillin susceptible Staphylococcus aureus (7) Thrombocytopenia Code(s): D69.6 - THROMBOCYTOPENIA, UNSPECIFIED Status: Chronic (8) Cirrhosis of liver Code(s): K74.60 - UNSPECIFIED CIRRHOSIS OF LIVER Status: Chronic Qualifiers: Ascites presence: unspecified (9) Fungemia Code(s): B49 - UNSPECIFIED MYCOSIS Status: Acute - Plan Plan: IMCU Cardiology consultation, recommendations patient - May need ESTRADA to rule out endocarditis GI consultation, recommendations patient Pulm/ cc consultation, recommendations patient infectious disease consultation, recommendations patient nephrology consultation, recommendations appreciated oncology consultation, recommendations appreciated will need outpatient follow- up for liver mass Pulm status improved, no longer on O2 after fluid removed with HD GI: -Hep C, cirrhosis, liver mass, lung mets, portal vein thrombosis -portal vein thrombosis now shows thrombus - continue Heparin Drip after HD cath placed, will need transition to Coumadin at some point -Continue Octreotide drip -Continue lactulose chronic therapy to lower ammonia and avoid hepatic encephalopathy Infectious: -Persistent bacteremia/ fungemia - ESTRADA would be needed to rule out infectious endocarditis -Continue Micafungin for fungemia, hepatic and renal toxicity concerns -Repeat blood cultures, with fungemia -Repeat blood cultures 1/2 MRSA -Initial blood cultures with 2/2 MRSA -MRSA in urine and blood with sensitivity to vancomycin and Linezolid -Continue Linezolid, responding well Renal: -HD per nephrology -Possible hepatorenal syndrome vs GN from bacteremia vs ATN from vancomycin -renal ultrasound ruled out obstruction -Scrotal US neg for mass of vascular abnormalities continue other home medications as able Disposition: Short and intermodal customer service prognosis is guarded. Patient with hepatitis C , liver mass with mets to lung, cirrhosis, hepatic encephalopathy, portal vein thrombosis, acute renal failure, in the setting of MRSA resistant bacteremia and fungemia. Patient wishes all aggressive measures to be continued. Palliative care consult/ spiritual consult.
[2019-01-24] MEDS: Midodrine HCl 5 MG TAB PO SCH ×2 (14:44→20:03)
--- NOTE | 2019-01-24 17:09 | PRG ---
DATE OF SERVICE: 01/24/2019 REASON FOR CONSULTATION: Cirrhosis, portal vein thrombosis, possible hepatorenal syndrome. SUBJECTIVE: The patient states that he has been having increased soreness of throat and cough overnight and into this morning, but has not been restricting him in terms of his respiratory status or ability to eat. Otherwise, he states he is feeling better when compared to previous. He adds that the swelling in his legs and his abdomen seems to have been going down over the last 24 to 48 hours in addition to his scrotal edema. He did undergo dialysis yesterday with fluid removed during that session and he has been able to tolerate the midodrine and the octreotide without difficulty. Otherwise, he denies any nausea, vomiting, fevers, chills, hematemesis, melena, or hematochezia. He has had approximately 2 bowel movements within the last 24 hours, one of which was darker brown in coloration. OBJECTIVE: VITAL SIGNS: Temperature 98, pulse 82, blood pressure 131/66, respiratory rate 20, and saturating 94%. GENERAL: The patient was lying in bed, in no acute distress. Alert and oriented x4. CARDIOVASCULAR: Regular rate and rhythm. RESPIRATORY: Clear to auscultation bilaterally. ABDOMEN: Normoactive bowel sounds. Soft. [id number] abdominal distention with shifting dullness. Mild tenderness to palpation in the suprapubic region. EXTREMITIES: 1+/2+ edema to mid thigh. LABORATORY DATA: PTT 168. Chemistry with a sodium of 131, potassium 4.4, chloride 97, CO2 of 20, BUN 61, creatinine 4.53, glucose 237, and calcium 7.7. Hepatitis C viral load undetectable. IMAGING DATA: No current GI imaging is available for review. ASSESSMENT AND PLAN: The patient is a 53-year-old male with past medical history of diabetes, hypertension, chronic hepatitis C, hepatocellular carcinoma with metastatic disease to the lungs, and cirrhosis complicated by hepatic encephalopathy, and now portal vein thrombosis, presenting to the hospital with methicillin-resistant Staphylococcus aureus bacteremia, possible fungemia, and acute kidney injury requiring hemodialysis and may be progressing to hepatorenal syndrome. 1. Acute portal vein thrombosis: During the course of this admission, the patient has had a slow occlusion of the portal system with complete occlusion of the right portal vein and partial occlusion of the main portal vein. He was subsequently placed on heparin drip for anticoagulation and has been doing well with no evidence of overt gastrointestinal bleeding while on this regimen. a. Recommendations: I. We would continue anticoagulation with careful monitoring the patient for signs of bleeding. II. Agree with antibiotic therapy for treatment of the MRSA bacteremia and fungemia as a possible source of portal vein thrombosis. III. If the patient improves over the next 24 to 48 hours, he will probably need to be placed on long-term anticoagulation with something like Coumadin. 2. Cirrhosis: The patient is presenting with a diagnosis of cirrhosis, complicated by hepatocellular carcinoma with metastatic disease to the lungs and hepatic encephalopathy. No current labs are available to calculate a current MELD score, but based on the calculation on 01/22, the patient has a significantly increased 90-day mortality with a MELD score of 32. With the hepatocellular carcinoma, he has undergone multiple treatments, and with the evidence of metastatic disease and enlargement of the liver lesion, prognosis is poor as the patient is not a transplant candidate. a. Recommendations: I. We would attempt to avoid any potentially hepatotoxic medications during this admission. II. Continue to monitor the patient's blood pressure. III. Agree with palliative care consultation in light of metastatic hepatocellular carcinoma. 3. Acute kidney injury/possible hepatorenal syndrome: The patient is presenting with multiple bloodstream infections during the course of this admission in addition to a prior diagnosis of hepatocellular carcinoma and cirrhosis, all of which could contribute to acute portal vein thrombosis. He was subsequently placed on anticoagulation on 01/22/2019, and has been doing well during the course of this admission. However, he has also had worsening renal function during the course of this admission as part of treatment for his bloodstream infections, he was placed on midodrine, octreotide, and albumin infusions, and with the combination of these therapies, he has had some improvement in renal function. Given the rapid decline of his renal function during the course of this admission, it could be indicative of hepatorenal syndrome type 1, in which case the patient's prognosis would be extremely poor. a. Recommendations: I. We would continue albumin 25 g 4 times daily. II. Continue midodrine, but increase to 10 mg 3 times daily in addition to octreotide drip. III. Continue to monitor renal function daily. We will continue to follow. Please call with any questions. Job ID: [id number]
[2019-01-24 20:28] LABS: Hemoglobin 9.2 g/dL (14.0-18.0); Platelet Count 102 thou/uL (130-400)
[2019-01-25] MEDS: Octreotide Acetate 1,250 MCG in Sodium Chloride 0.9% 250 ML 250 ML IVPB SCH (00:38)
[2019-01-25 04:04] LABS: Anion Gap 16 mmol/L (10-20); BUN (Urea Nitrogen) 70 mg/dL (8.4-25.7); Calc. Creatinine Clearance 21 mL/min (70-130); Calcium 7.9 mg/dL (7.8-10.44); Carbon Dioxide 22 mmol/L (22-29); Chloride 99 mmol/L (98-107); Estimated GFR-MDRD 11; Glucose 78 mg/dL (70-105); Potassium 4.1 mmol/L (3.5-5.1); Sodium 133 mmol/L (136-145)
[2019-01-25] MEDS: Heparin 25,000 units/D5W 500 ML IVPB SCH (05:09)
[2019-01-25] MEDS: Aspirin 81 mg Enteric Coated Tablet PO SCH (09:49)
[2019-01-25] MEDS: Sodium Bicarbonate Tab 325 MG TAB PO SCH ×3 (09:49→20:56)
[2019-01-25] MEDS: Propranolol HCl 20 MG TAB PO SCH ×2 (09:49→20:56)
[2019-01-25] MEDS: Midodrine HCl 5 MG TAB PO SCH ×3 (09:50→20:53)
[2019-01-25] MEDS: Linezolid 600 MG in Premix Bag 1 BAG IVPB SCH (09:52)
[2019-01-25 10:39] LABS: INR-International Normal Ratio 1.7; Prothrombin Time 19.8 SEC (12.0-14.7)
--- NOTE | 2019-01-25 11:08 | PRG ---
DATE OF SERVICE: 01/25/2019 SUBJECTIVE: He appears to be in better spirits today. He says his breathing is better. He still is aggravated by cough. OBJECTIVE: VITAL SIGNS: Temperature is 96.8, pulse 72, blood pressure 128/78, O2 saturation 95%. 24 hour intake 1790, output 350. HEENT: Unremarkable. NECK: No adenopathy or JVD. LUNGS: Fairly clear anteriorly. CARDIAC: S1 and S2. Regular. ABDOMEN: Soft. EXTREMITIES: No edema. LABORATORY DATA: Sodium 133, potassium 4.1, BUN 70, creatinine 5.4, and glucose 78. ASSESSMENT: The patient has improved from a respiratory standpoint after initiation of dialysis. He continues to deal with other issues including portal vein thrombosis for which he is anticoagulated and fungemia. Additionally, he has cirrhosis. RECOMMENDATIONS: 1. Continue dialysis. 2. Continue the micafungin. Perhaps get Dr. Bernal' opinion on duration of antifungal treatment. 3. From my standpoint, he is stable to transfer to the floor. Eventually, he will have to be converted over to some type of oral anticoagulation such as Coumadin. Job ID: [id number]
[2019-01-25] MEDS ORDERED: Heparin 1,000 UNITS/ML VIAL ONE (11:11)
[2019-01-25] MEDS ORDERED: Ondansetron PF 4 MG/2 ML Vial IVP PRN (11:20)
[2019-01-25] MEDS ORDERED: Famotidine 20 MG TAB PO PRN ×2 (11:21→14:26)
[2019-01-25 11:30] LABS: ALT (SGPT) 36 U/L (8-55); AST (SGOT) 66 U/L (5-34); Albumin 2.6 g/dL (3.5-5.0); Alkaline Phosphatase 272 U/L (40-110); Bilirubin, Direct 1.1 mg/dL (0.1-0.3); Bilirubin, Total 2.9 mg/dL (0.2-1.2); Protein, Total 6.4 g/dL (6.0-8.3)
[2019-01-25 11:46] LABS: PTT 71.1 SEC (22.9-36.1)
[2019-01-25] MEDS: HumaLOG 300 UNITS/3 ML VIAL SC SCH ×2 (12:43→16:14)
[2019-01-25] MEDS: Insulin Glargine 20 UNITS in Pre-Filled Syringe SC SCH ×2 (12:44→20:53)
[2019-01-25] MEDS ORDERED: Albumin 25% 100 ML ONE (13:06)
[2019-01-25] MEDS: Micafungin 100 MG in Sodium Chloride 0.9% 100 ML IVPB SCH (13:15)
--- NOTE | 2019-01-25 14:45 | PDOC.HOSPP ---
- Subjective Subjective: Seen and examined. More alert and awake. Breathing well on room air. Less abdominal distention after HD. Hands/ legs remain very edematous. Currently on HD. Complaining of upset stomach and nausea - medications adjusted. Will need tunneled catheter for continued HD, then will transition from Heparin to Coumadin. - Objective Vital Signs & Weight: Vital Signs (12 hours) Temp Pulse Resp Pulse Ox 01/25/19 12:55 80 19 100 01/25/19 11:12 96.8 F L 01/25/19 07:45 97 01/25/19 07:44 72 19 97 01/25/19 07:28 96.8 F L 01/25/19 04:32 97.7 F Weight Admit Weight 169 lb Weight 211 lb 4 oz Most Recent Monitor Data Heart Rate from ECG 64 NIBP 98/47 NIBP BP-Mean 64 Respiration from ECG 24 SpO2 100 I&O: 01/24/19 01/25/19 01/26/19 06:59 06:59 06:59 Intake Total 1140 1790 Output Total 250 350 100 Balance 890 1440 -100 Result Diagrams: 01/24/19 20:05 01/25/19 03:25 Additional Labs: Accuchecks 01/25/19 01/25/19 01/25/19 10:46 06:08 05:06 POC Glucose 108 93 64 L 01/24/19 01/24/19 20:10 16:13 POC Glucose 178 H 219 H Radiology Reviewed by me: Yes Hospitalist ROS - Review of Systems All other systems reviewed; all pertinent +/- noted in HPI/Subj - Medication Medications: Active Medications Generic Name Dose Route Start Last Admin Trade Name Freq PRN Reason Stop Dose Admin Acetaminophen 650 mg 01/13/19 04:08 01/22/19 00:56 Tylenol PO 650 mg Q4H PRN Administration Headache/Fever/Mild Pain (1-3) Albuterol/Ipratropium 3 ml 01/18/19 20:49 01/20/19 04:08 Duoneb NEB 3 ml Q4H PRN Administration SOB &/or Wheezing Albuterol/Ipratropium 3 ml 01/19/19 01:00 01/25/19 12:55 Duoneb NEB 3 ml [id number] EAN Administration Aspirin 81 mg 01/15/19 09:00 01/25/19 09:49 Ecotrin PO 81 mg DAILY EAN Administration Heparin Sodium (Porcine) 0 units 01/22/19 17:30 01/24/19 21:07 Heparin 1,000 Units/Ml (10 Ml) SLOW IVP 3,800 units ASDIR EAN Administration Protocol Linezolid 600 mg/ Device 300 mls @ 150 mls/hr 01/20/19 09:00 01/25/19 09:52 IVPB 300 mls Q12HR EAN Administration Insulin Glargine 20 units/ 0.2 mls @ 0 mls/hr 01/22/19 21:00 01/25/19 12:44 Miscellaneous Medication SC Not Given BID EAN Heparin Sodium/Dextrose 500 mls @ 0 mls/hr 01/22/19 17:30 01/25/19 05:09 Heparin 25,000 Units/D5w 500 Ml IVPB 500 mls INF EAN Administration Protocol Per Protocol Micafungin Sodium 100 mg/ 100 mls @ 100 mls/hr 01/23/19 11:00 01/25/19 13:15 Sodium Chloride IVPB 100 mls 1100 EAN Administration Octreotide Acetate 1,250 mcg/ 251.25 mls @ 10.05 mls/hr 01/23/19 21:30 00:38 Sodium Chloride IVPB 251.25 mls INF EAN Administration 50 MCG/HR Insulin Human Lispro 0 units 01/13/19 04:12 01/24/19 09:29 Humalog SC 6 unit .MODERATE SLIDING SC PRN Administration Moderate Correctional Scale Insulin Human Lispro 6 units 01/13/19 08:00 01/25/19 12:43 Humalog SC Not Given TID-WM EAN Lactulose 20 gm 01/22/19 21:00 01/25/19 13:25 Lactulose PO Not Given QID EAN Midodrine 10 mg 01/24/19 15:00 01/25/19 09:50 Proamatine PO 10 mg TID EAN Administration Phenol 180 ml 01/20/19 11:17 01/24/19 03:06 Chloraseptic [place] 180 Ml Bot PO 1 spr BIDPRN PRN Administration Sore Throat Propranolol HCl 20 mg 01/14/19 21:00 01/25/19 09:49 Inderal PO 20 mg BID EAN Administration Sodium Bicarbonate 325 mg 01/19/19 15:00 01/25/19 09:49 Bicarbonate, Sodium PO 325 mg TID EAN Administration Sodium Chloride 10 ml 01/13/19 21:00 01/25/19 09:51 Flush - Normal Saline IVF 10 ml Q12HR EAN Administration Sodium Chloride 10 ml 01/13/19 09:57 01/15/19 14:33 Flush - Normal Saline IVF 10 ml PRN PRN Administration Saline Flush - Exam General Appearance: NAD, awake alert Eye: PERRL, anicteric sclera ENT: normocephalic atraumatic, moist mucosa Neck: supple, symmetric, no lymphadenopathy Heart: RRR, no murmur, no gallops, no rubs Respiratory: CTAB, no wheezes, no ronchi, normal chest expansion, rales Gastrointestinal: soft, non-tender, no guarding, no rigidity, distended (less distended) Extremities - other findings: 4+ LE edema. +2 UE edema Skin: no rashes Neurological: cranial nerve grossly intact, no focal deficits Musculoskeletal: generalized weakness Psychiatric: normal affect, A&O x 3 Hosp A/P (1) Bacteremia due to Gram-positive bacteria Code(s): R78.81 - BACTEREMIA Status: Acute (2) DM type 2 (diabetes mellitus, type 2) Status: Chronic Qualifiers: Diabetes mellitus intermediate accountant insulin use: with fdc use Diabetes mellitus complication status: with hyperglycemia Qualified Code(s): E11.65 - Type 2 diabetes mellitus with hyperglycemia; Z79.4 - jail (current) use of insulin (3) Diabetes Code(s): E11.9 - TYPE 2 DIABETES MELLITUS WITHOUT COMPLICATIONS Status: Chronic (4) Hyponatremia Code(s): E87.1 - HYPO-OSMOLALITY AND HYPONATREMIA Status: Resolved (5) Liver cancer Code(s): C22.9 - MALIG NEOPLASM OF LIVER, NOT SPECIFIED PRIMARY OR SEC Status: Chronic (6) Sepsis Code(s): A41.9 - SEPSIS, UNSPECIFIED ORGANISM Status: Resolved Qualifiers: Sepsis type: methicillin susceptible Staphylococcus aureus Sepsis acute organ dysfunction status: without acute organ dysfunction Qualified Code(s): A41.01 - Sepsis due to Methicillin susceptible Staphylococcus aureus (7) Thrombocytopenia Code(s): D69.6 - THROMBOCYTOPENIA, UNSPECIFIED Status: Chronic (8) Cirrhosis of liver Code(s): K74.60 - UNSPECIFIED CIRRHOSIS OF LIVER Status: Chronic Qualifiers: Ascites presence: unspecified (9) Fungemia Code(s): B49 - UNSPECIFIED MYCOSIS Status: Acute - Plan Plan: IMCU, stable for med/ tel Cardiology consultation, recommendations patient - May need ESTRADA to rule out endocarditis GI consultation, recommendations patient Pulm/ cc consultation, recommendations patient infectious disease consultation, recommendations patient nephrology consultation, recommendations appreciated oncology consultation, recommendations appreciated will need outpatient follow- up for liver mass Pulm status improved, no longer on O2 after fluid removed with HD GI: -Hep C, cirrhosis, liver mass, lung mets, portal vein thrombosis -portal vein thrombosis now shows thrombus - continue Heparin Drip after HD cath placed, will need transition to Coumadin at some point -Continue Octreotide drip -Continue lactulose chronic therapy to lower ammonia and avoid hepatic encephalopathy -Protonix for GERD, no signs of bleeding no indication for EGD at this point Infectious: -Persistent bacteremia/ fungemia - ESTRADA would be needed to rule out infectious endocarditis -Continue Micafungin for fungemia, hepatic and renal toxicity concerns -Repeat blood cultures, with fungemia -Repeat blood cultures 1/2 MRSA -Initial blood cultures with 2/2 MRSA -MRSA in urine and blood with sensitivity to vancomycin and Linezolid -Continue Linezolid, responding well Renal: -HD per nephrology -Possible hepatorenal syndrome vs GN from bacteremia vs ATN from vancomycin -renal ultrasound ruled out obstruction -Scrotal US neg for mass of vascular abnormalities continue other home medications as able Disposition: Short and fdc prognosis is guarded. Patient with hepatitis C , liver mass with mets to lung, cirrhosis, hepatic encephalopathy, portal vein thrombosis, acute renal failure, in the setting of MRSA resistant bacteremia and fungemia. Patient wishes all aggressive measures to be continued. Palliative care consult/ spiritual consult.
--- NOTE | 2019-01-25 14:49 | PDOC.EVN ---
Event Note - Event Note Event Note: Continue Heparin until tunneled HD cath in position, then will transition to oral anticoagulation.
--- NOTE | 2019-01-25 15:24 | PRG ---
DATE OF SERVICE: 01/25/2019 REASON FOR CONSULTATION: Cirrhosis, portal vein thrombosis, possible hepatorenal syndrome. SUBJECTIVE: The patient states that he did have some insomnia overnight and had some difficulty getting to sleep and was a little somnolent during examination today. Otherwise, he states that he is doing well with decreased swelling in his abdomen and legs and had been having decreased cough and improvement in his respiratory status with the institution of breathing treatments. Otherwise, he denies any nausea, vomiting, fevers, chills, hematemesis, melena, or hematochezia. OBJECTIVE: VITAL SIGNS: Temperature 96.8, pulse 73, blood pressure 107/54, respiratory rate 17, saturating 100% on room air. GENERAL: The patient was lying in bed, in no acute distress. Alert and oriented x4. CARDIOVASCULAR: Regular rate and rhythm. RESPIRATORY: Clear to auscultation bilaterally. ABDOMEN: Normoactive bowel sounds. Soft. Mild abdominal distention with no discernible shifting dullness. No tenderness to palpation. EXTREMITIES: 1+ edema to the knees. LABORATORY DATA: CBC with a hemoglobin of 9.2, hematocrit 27.8, PTT 107, INR 1.7. Chemistry with a sodium of 133, potassium 4.1, chloride 99, CO2 of 22, BUN 70, creatinine 5.35, glucose 78. AST 66, ALT 36, alkaline phosphatase 272, total bilirubin 2.9. IMAGING DATA: No current GI imaging is available for review. ASSESSMENT AND PLAN: The patient is a 53-year-old male with past medical history of diabetes, hypertension, chronic hepatitis C, hepatocellular carcinoma with metastatic disease to the lungs and cirrhosis complicated by hepatic encephalopathy and now acute portal vein thrombosis, presenting with MRSA bacteremia, Alise fungemia, and acute kidney injury requiring hemodialysis with the possibility of hepatorenal syndrome. Acute portal vein thrombosis: The patient is presenting with increasing thrombosis within the portal system consistent with acute portal vein thrombosis. At this time, the more likely etiology for the formation of this thrombosis could be due to the presence of hepatocellular carcinoma versus cirrhosis versus abdominal sepsis/sepsis contributing to increased thrombosis within the body. Currently doing well with anticoagulation with no evidence of overt GI bleeding or bleeding anywhere for that matter. Recommendations: 1. Would continue anticoagulation. 2. Continue to monitor signs for active bleeding. 3. Continue with treatment for bacteremia/fungemia. 4. If the patient is doing well, he may need to be transferred to Coumadin within the next 3-4 days. Cirrhosis: The patient is presenting with a diagnosis of cirrhosis complicated by hepatocellular carcinoma with metastatic disease to the lungs and hepatic encephalopathy. Based on his current labs obtained today, his MELD score calculation is 31, primarily driven by his worsening renal disease. However, given this calculation, his 90-day mortality approach is 60% to 65%. With the presence of hepatocellular carcinoma and metastatic disease, he is not currently a transplant candidate, and based on his renal function, he is a very poor chemotherapy candidate at this time as well. Given these aspects of his current clinical condition, his overall prognosis is poor. Recommendations: 1. Continue to avoid any potentially hepatotoxic medications. 2. I spoke with the patient extensively about his prognosis and have reviewed the Palliative Care notes as well with comfort care measures not unreasonable at this point. Acute kidney injury/possible hepatorenal syndrome: The patient has had a complicated hospital course with MRSA bacteremia and now Alise fungemia with numerous medications that could have contributed to acute kidney injury. However, with the infusion of albumin 25 g q.i.d., midodrine, and octreotide, he has actually had worsening renal function to the point where he is getting dialysis today. Given the rapid decline of his renal function during the course of this admission, this seems more consistent with hepatorenal syndrome type 1, in which case the patient's prognosis is extremely poor. Recommendations: 1. Would continue albumin 25 g 4 times daily to maintain intravascular volume. 2. Continue midodrine and octreotide drips for at least the next 24-48 hours. 3. Continue to monitor renal function daily. We will continue to follow, but if the patient continues to exhibit worsening renal function despite hemodialysis and treatment for possible hepatorenal syndrome, there is nothing more that we can offer. We will continue to follow. Please call with any questions. Job ID: [id number]
[2019-01-25] MEDS: Albumin 25% 25 GM/100 ML BOT IVPB SCH ×2 (16:13→20:52)
[2019-01-25] MEDS: Acetaminophen 325 MG TAB PO PRN (16:18)
--- NOTE | 2019-01-25 16:46 | PRG ---
DATE OF SERVICE: 01/25/2019 SUBJECTIVE: Mr. Thompson since I last saw him he has developed renal insufficiency, requiring hemodialytic replacement. Dr. Parks has seen him and felt that either glomerulonephritis associated with the infection or drug-associated interstitial nephritis is the cause of the changes. The patient was switched to Zyvox. He also has been noted to have Alise krusei fungemia, diagnosed on January 21, the line has still been left in place. Only 1/2 samples was positive from the line at 48 hours thus far. He had a repeat venous sample from January 16 and it was still positive for MRSA. Currently, he is awake. He denies any visual disturbances. Little bit blurred vision, but that is chronically there. No headaches. No vomiting. No more pain in the right sternoclavicular joint area. No cough or chest pain. No abdominal pain. He is voiding in the urinal. His I's and O's have been slightly quite a bit positive for the past many days. The possibility of hepatorenal syndrome has been also considered. He was noted to have a portal vein thrombosis and is on anticoagulation for that. OBJECTIVE: VITAL SIGNS: T-max of 98, blood pressure 105/49, pulse 72, respirations 17, O2 saturation 100. GENERAL: Appears in no acute distress. Oriented. HEENT: Ocular movements conjugate. Sclerae white. Retinal examination did not show any evidence of endophthalmitis or retinitis. The oral cavity is unremarkable. NECK: Supple. LUNGS: Symmetric, clear breath sounds. HEENT: S1 and S2 without murmurs. Still has a PICC line in the left upper extremity. He has now Trialysis catheter in the right groin and he does not have a Gregorio catheter. LABORATORY DATA: White cell count is 10.6, hemoglobin 9.9, platelets 76,000 to 102,000. Creatinine peaked at 5.35 today. HIV RNA quant was not detected as expected in view of his treatment. ASSESSMENT AND DISCUSSION: 1. Chronic hepatitis C, treated and cured. Hepatocellular carcinoma for 2 years , now on chemotherapy. Methicillin-resistant Staphylococcus aureus bacteremia with sternoclavicular joint infection and some inflammatory process in the right side of the pelvis which has improved with treatment. Portal vein thrombosis, acute renal failure either due to the bacteremia with glomerulonephritis or drug-associated interstitial nephritis or hepatorenal syndrome. 2. Alise krusei fungemia in one set of cultures obtained from the PICC line. DISCUSSION: The patient will need a removal of the PICC line. Switch him to daptomycin since it has bactericidal activity against the MRSA, Zyvox is not approved for bacteremia. Continue micafungin, which is the best choice for treatment of Alise krusei fungemia. Again, no evidence of endophthalmitis. The daptomycin can be given after dialysis 3 times a week. He will need protracted treatment with daptomycin, the end date of therapy will be February 27, and a total of 3 wks of iv Micafungin. Job ID: [id number] [facility]
[2019-01-25] MEDS ORDERED: CEFAZOLIN 2 GM in Premix Bag 1 BAG IVPB SCH (18:00)
--- NOTE | 2019-01-25 18:09 | PRG ---
DATE OF SERVICE: 01/25/2019 SUBJECTIVE: Patient was seen and examined at bedside and overnight events noted. Patient denies any shortness of breath or chest pain or palpitation. No history of nausea or vomiting or diarrhea or fever or chills or cramps. OBJECTIVE: GENERAL: This is a well-built male, in no apparent distress. VITAL SIGNS: Temperature 96.8. Heart rate 71. Respiratory rate 22. Blood pressure 116/53. HEENT: Atraumatic, normocephalic. Oral mucosa is moist NECK: Supple. CARDIOVASCULAR: S1, S2 heard. Rate and rhythm regular. RESPIRATORY: Clear to auscultation. GASTROINTESTINAL: Abdomen is soft. MUSCULOSKELETAL: No tenderness. No edema. DERMATOLOGIC: No skin rash. NEUROLOGIC: Alert and awake and oriented X3. No focal neurologic deficits. Moving all the extremities. PSYCHIATRIC: Mood and affect normal. LABORATORY DATA: Potassium 4.9, BUN is 70, and creatinine is 5.3. ASSESSMENT AND PLAN: 1. Acute kidney injury on chronic kidney disease, dialysis dependent, secondary to hepatorenal syndrome. Continue on dialysis. 2. Hyponatremia, stable. 3. Edema, remove fluid if tolerated. 4. History of hypertension. 5. Hepatorenal syndrome. 6. Anemia. We will continue Epogen with dialysis. Plan is to continue on dialysis as tolerated. Job ID: [id number]
[2019-01-25] MEDS: EPOETIN ALFA-EPBX (ESRD) 10,000 UNIT/ML VIAL IVP SCH (18:31)
[2019-01-25] MEDS: Tuberculin PPD 0.1 ML VIAL I-DERMAL SCH (19:22)
[2019-01-25] MEDS: Pantoprazole 40 MG VIAL IVP SCH (20:55)
[2019-01-26] MEDS: Octreotide Acetate 1,250 MCG in Sodium Chloride 0.9% 250 ML 250 ML IVPB SCH ×2 (01:19→23:18)
[2019-01-26 03:35] LABS: INR-International Normal Ratio 2.1; Prothrombin Time 23.6 SEC (12.0-14.7)
[2019-01-26 03:48] LABS: Anion Gap 22 mmol/L (10-20); BUN (Urea Nitrogen) 48 mg/dL (8.4-25.7); Calc. Creatinine Clearance 27 mL/min (70-130); Carbon Dioxide 19 mmol/L (22-29); Chloride 97 mmol/L (98-107); Estimated GFR-MDRD 15; Glucose 289 mg/dL (70-105); Potassium 4.9 mmol/L (3.5-5.1); Sodium 133 mmol/L (136-145)
[2019-01-26 03:50] LABS: PTT Greater than 250.0 SEC (22.9-36.1)
[2019-01-26] MEDS: Propranolol HCl 20 MG TAB PO SCH ×2 (05:48→22:03)
[2019-01-26] MEDS: HumaLOG 300 UNITS/3 ML VIAL SC PRN ×2 (05:48→22:02)
--- NOTE | 2019-01-26 08:19 | PRG ---
DATE OF SERVICE: 01/26/2019 SUBJECTIVE: Patient was seen and examined at bedside and overnight events noted. Patient denies any shortness of breath or chest pain or palpitation. No history of nausea or vomiting or diarrhea or fever or chills or cramps. OBJECTIVE: GENERAL: This is a well built male in no apparent distress. VITAL SIGNS: Temperature 97.6. Heart rate 75. Respiratory rate 18. Blood pressure 126/60. HEENT: Atraumatic, normocephalic. Oral mucosa is moist NECK: Supple. CARDIOVASCULAR: S1, S2 heard. Rate and rhythm regular. RESPIRATORY: Clear to auscultation. GASTROINTESTINAL: Abdomen is soft. MUSCULOSKELETAL: No tenderness. No edema. DERMATOLOGIC: No skin rash. NEUROLOGIC: Alert and awake and oriented x3. No focal neurologic deficits. Moving all the extremities. PSYCHIATRIC: Mood and affect normal. LABORATORY DATA: Potassium is 4.9, BUN is 48, creatinine is 4.2. ASSESSMENT AND PLAN: 1. Acute kidney injury on chronic kidney disease stage 3. He remains dialysis dependent. Most likely from hepatorenal syndrome. Continue dialysis. Monitor urine output. No dialysis today. We will plan for dialysis tomorrow and then as tolerated. 2. Hyponatremia. Limit fluid intake. 3. Edema. We will continue to remove fluid with dialysis. 4. Hypertension. 5. Hepatorenal syndrome. 6. Anemia of chronic disease. 7. Continue dialysis as tolerated. Job ID: [id number]
[2019-01-26] MEDS ORDERED: Metoclopramide HCl 10 MG/2 ML VIAL IVP PRN (09:03)
[2019-01-26] MEDS: Aspirin 81 mg Enteric Coated Tablet PO SCH (10:18)
[2019-01-26] MEDS: HumaLOG 300 UNITS/3 ML VIAL SC SCH ×3 (10:18→16:47)
[2019-01-26] MEDS: Midodrine HCl 5 MG TAB PO SCH ×3 (10:19→21:56)
[2019-01-26] MEDS: Sodium Bicarbonate Tab 325 MG TAB PO SCH ×3 (10:19→22:01)
[2019-01-26] MEDS: Pantoprazole 40 MG VIAL IVP SCH ×2 (10:20→22:00)
[2019-01-26] MEDS: Albumin 25% 25 GM/100 ML BOT IVPB SCH ×3 (10:20→17:01)
[2019-01-26] MEDS: Insulin Glargine 18 UNITS in Pre-Filled Syringe 1 EACH SC SCH ×2 (10:20→21:55)
[2019-01-26] MEDS: Micafungin 100 MG in Sodium Chloride 0.9% 100 ML IVPB SCH (10:21)
--- NOTE | 2019-01-26 11:52 | PRG ---
DATE OF SERVICE: 01/26/2019 SUBJECTIVE: He continues to slowly improve. He had no acute complaints. OBJECTIVE: VITAL SIGNS: Temperature 98.0, pulse 71, blood pressure 119/54, O2 sats 93% on nasal cannula. HEENT: Unremarkable. NECK: No adenopathy or JVD. LUNGS: Fairly clear. CARDIAC: S1 and S2, regular. ABDOMEN: Soft. EXTREMITIES: Edematous. ASSESSMENT: 1. Fungemia. 2. Portal vein thrombosis. 3. Acute on chronic renal failure. PLAN: The patient continues anticoagulation. I believe, the heparin is being held for dialysis catheter placement later today. He is continuing antibiotics and antifungals. At some point, once all procedures are concluded, then consideration needs to be made starting Coumadin. This patient may be difficult to manage given his overt liver failure. Job ID: [id number]
[2019-01-26] MEDS ORDERED: Ondansetron PF 4 MG/2 ML Vial ONE (12:18)
[2019-01-26] MEDS ORDERED: Glycopyrrolate 0.2 MG/ML 5 ML SYRINGE ONE (12:18)
--- NOTE | 2019-01-26 13:19 | PRG ---
DATE OF SERVICE: 01/26/2019 SUBJECTIVE: Mr. Thompson has no acute complaints today. No abdominal pain. No bowel movement yesterday, but his lactulose was held because he had multiple bowel movements the day before. OBJECTIVE: VITAL SIGNS: Temperature 98.0, pulse 71, and blood pressure 125/56. GENERAL: He is in no acute distress. Awake, alert, and oriented x3. LUNGS: Clear to auscultation bilaterally. HEART: Regular rate and rhythm without murmur. ABDOMEN: Soft, nontender, and nondistended. Bowel sounds are present. EXTREMITIES: 2+ pitting lower extremity edema. NEUROLOGIC: He has asterixis present on neurological exam. LABORATORY DATA: Hemoglobin is 9.2 and platelets are 102. INR 2.1. Creatinine 4.25 down from 5.35 yesterday. IMPRESSION: 1. Decompensated cirrhosis. 2. Metastatic hepatocellular carcinoma. 3. Methicillin-resistant staphylococcus aureus bacteremia and Alise fungemia. 4. Possible hepatorenal syndrome. 5. Acute portal vein thrombosis. 6. Acute renal failure. His creatinine did decrease today. He is being treated with octreotide and midodrine and albumin infusion for the last few days. I suspect that the drop in his creatinine is secondary to the dialysis rather than improved renal function with the above measures. RECOMMENDATIONS: 1. Anticoagulation is interrupted today for dialysis catheter placement. He will resume after that. 2. Given the decrease in his creatinine today, we will continue with the current therapy. 3. Restart lactulose in light of hepatic encephalopathy with asterixis. 4. Antibiotics per Infectious Disease recommendations. Job ID: [id number]
[2019-01-26] MEDS ORDERED: PROPOFOL 0 ML ONE (14:09)
[2019-01-26] MEDS ORDERED: Famotidine/PF 20 mg/2ml Vial ONE ×2 (14:09→17:47)
[2019-01-26] MEDS ORDERED: Fentanyl 100 MCG/2 ML VIAL ONE ×2 (14:09→18:52)
[2019-01-26] MEDS ORDERED: Heparin 10,000 UNITS/1 ML VIAL ONE (14:44)
[2019-01-26] MEDS ORDERED: Bupivacaine HCl 0.5%/Epinephrine 1:200,000/PF 30 ml Vial ONE (14:44)
[2019-01-26] MEDS ORDERED: Sodium Chloride 0.9% 30 ML ONE (14:44)
[2019-01-26] MEDS ORDERED: Lidocaine 2% PF 5 ML VIAL ONE (14:44)
--- NOTE | 2019-01-26 14:48 | PDOC.HOSPP ---
- Subjective Subjective: Seen and examined. Patient's mental status is not as sharp today. Has missed doses of lactulose for diarrhea, no longer having bowel movements. Agree with restarting lactulose to avoid hepatic encephalopathy. Heparin being held for tunneled HD catheter. Upset stomach/GERD persists. No bleeding. No other acute complaints. - Objective Vital Signs & Weight: Vital Signs (12 hours) Temp Pulse Resp Pulse Ox 01/26/19 13:10 76 16 92 L 01/26/19 10:49 98.0 F 01/26/19 08:00 93 L 01/26/19 07:23 75 18 95 01/26/19 07:13 97.6 F 01/26/19 03:18 97.7 F Weight Admit Weight 169 lb Weight 197 lb 3 oz Most Recent Monitor Data Heart Rate from ECG 74 NIBP 121/58 NIBP BP-Mean 79 Respiration from ECG 17 SpO2 94 I&O: 01/25/19 01/26/19 01/27/19 06:59 06:59 05:59 Intake Total 1790 2440 Output Total 350 4400 Balance 1440 -1960 Result Diagrams: 01/24/19 20:05 01/26/19 03:15 Additional Labs: Accuchecks 01/26/19 01/26/19 01/26/19 14:25 10:08 05:33 POC Glucose 291 H 260 H 262 H 01/25/19 01/25/19 20:32 16:36 POC Glucose 192 H 84 Radiology Reviewed by me: Yes Hospitalist ROS - Review of Systems All other systems reviewed; all pertinent +/- noted in HPI/Subj - Medication Medications: Active Medications Generic Name Dose Route Start Last Admin Trade Name Freq PRN Reason Stop Dose Admin Acetaminophen 650 mg 01/13/19 04:08 01/25/19 16:18 Tylenol PO 650 mg Q4H PRN Administration Headache/Fever/Mild Pain (1-3) Albumin Human 25 gm 01/25/19 17:00 01/26/19 12:54 Albumin 25% IVPB 01/26/19 17:01 25 gm QID EAN Administration Albuterol/Ipratropium 3 ml 01/18/19 20:49 01/20/19 04:08 Duoneb NEB 3 ml Q4H PRN Administration SOB &/or Wheezing Albuterol/Ipratropium 3 ml 01/19/19 01:00 01/26/19 13:10 Duoneb NEB 3 ml [id number] EAN Administration Aspirin 81 mg 01/15/19 09:00 01/26/19 10:18 Ecotrin PO Not Given DAILY EAN Epoetin Jose-epbx 10,000 unit 01/25/19 17:30 01/25/19 18:31 Retacrit IVP Not Given MoWeFr EAN Famotidine 20 mg 01/25/19 14:26 01/25/19 16:19 Pepcid PO 20 mg DAILYPRN PRN Administration Indigestion Heparin Sodium (Porcine) 0 units 01/22/19 17:30 01/24/19 21:07 Heparin 1,000 Units/Ml (10 Ml) SLOW IVP 3,800 units ASDIR EAN Administration Protocol Heparin Sodium/Dextrose 500 mls @ 0 mls/hr 01/22/19 17:30 01/25/19 05:09 Heparin 25,000 Units/D5w 500 Ml IVPB 500 mls INF EAN Administration Protocol Per Protocol Micafungin Sodium 100 mg/ 100 mls @ 100 mls/hr 01/23/19 11:00 01/26/19 10:21 Sodium Chloride IVPB 100 mls 1100 EAN Administration Octreotide Acetate 1,250 mcg/ 251.25 mls @ 10.05 mls/hr 01/23/19 21:30 01:19 Sodium Chloride IVPB 251.25 mls INF EAN Administration 50 MCG/HR Insulin Glargine 18 units/ 0.18 mls @ 1 mls/hr 01/26/19 09:00 01/26/19 10:20 Miscellaneous Medication SC 0.18 mls BID EAN Administration Insulin Human Lispro 0 units 01/13/19 04:12 01/26/19 05:48 Humalog SC 6 unit .MODERATE SLIDING SC PRN Administration Moderate Correctional Scale Insulin Human Lispro 6 units 01/13/19 08:00 01/26/19 12:57 Humalog SC Not Given TID-WM EAN Midodrine 12.5 mg 01/25/19 15:00 01/26/19 10:19 Proamatine PO Not Given TID EAN Pantoprazole Sodium 40 mg 01/25/19 21:00 01/26/19 10:20 Protonix IVP 40 mg Q12HR EAN Administration Phenol 180 ml 01/20/19 11:17 01/24/19 03:06 Chloraseptic Tupman 180 Ml Bot PO 1 spr BIDPRN PRN Administration Sore Throat Propranolol HCl 20 mg 01/14/19 21:00 01/26/19 05:48 Inderal PO 20 mg BID EAN Administration Sodium Bicarbonate 325 mg 01/19/19 15:00 01/26/19 10:19 Bicarbonate, Sodium PO Not Given TID EAN Sodium Chloride 10 ml 01/13/19 21:00 01/26/19 10:21 Flush - Normal Saline IVF 10 ml Q12HR EAN Administration Sodium Chloride 10 ml 01/13/19 09:57 01/26/19 10:21 Flush - Normal Saline IVF 10 ml PRN PRN Administration Saline Flush - Exam General Appearance: NAD Eye: PERRL, anicteric sclera ENT: normocephalic atraumatic, moist mucosa Neck: supple Heart: RRR, no murmur, no gallops Respiratory: CTAB, no wheezes, no rales, no ronchi Gastrointestinal: soft, non-tender, no guarding, distended Extremities - other findings: 3+ LE edema, 3+ UE edema Skin: no rashes Neurological: cranial nerve grossly intact, no focal deficits Musculoskeletal: generalized weakness Psychiatric: normal affect, oriented to person, oriented to place Hosp A/P (1) Bacteremia due to Gram-positive bacteria Code(s): R78.81 - BACTEREMIA Status: Acute (2) DM type 2 (diabetes mellitus, type 2) Status: Chronic Qualifiers: Diabetes mellitus intermediate manager insulin use: with assisted use Diabetes mellitus complication status: with hyperglycemia Qualified Code(s): E11.65 - Type 2 diabetes mellitus with hyperglycemia; Z79.4 - intermediate manager (current) use of insulin (3) Diabetes Code(s): E11.9 - TYPE 2 DIABETES MELLITUS WITHOUT COMPLICATIONS Status: Chronic (4) Hyponatremia Code(s): E87.1 - HYPO-OSMOLALITY AND HYPONATREMIA Status: Resolved (5) Liver cancer Code(s): C22.9 - MALIG NEOPLASM OF LIVER, NOT SPECIFIED PRIMARY OR SEC Status: Chronic (6) Sepsis Code(s): A41.9 - SEPSIS, UNSPECIFIED ORGANISM Status: Resolved Qualifiers: Sepsis type: methicillin susceptible Staphylococcus aureus Sepsis acute organ dysfunction status: without acute organ dysfunction Qualified Code(s): A41.01 - Sepsis due to Methicillin susceptible Staphylococcus aureus (7) Thrombocytopenia Code(s): D69.6 - THROMBOCYTOPENIA, UNSPECIFIED Status: Chronic (8) Cirrhosis of liver Code(s): K74.60 - UNSPECIFIED CIRRHOSIS OF LIVER Status: Chronic Qualifiers: Ascites presence: unspecified (9) Fungemia Code(s): B49 - UNSPECIFIED MYCOSIS Status: Acute - Plan Plan: IMCU, stable for med/ tel GI consultation, recommendations patient Pulm/ cc consultation, recommendations patient infectious disease consultation, recommendations patient nephrology consultation, recommendations appreciated oncology consultation, recommendations appreciated will need outpatient follow- up for liver mass Pulm status improved, no longer on O2 after fluid removed with HD GI: -Hep C, cirrhosis, liver mass, lung mets, portal vein thrombosis -portal vein thrombosis now shows thrombus - continue Heparin Drip after HD cath placed, will need transition to Coumadin at some point -Continue Octreotide drip -Continue lactulose chronic therapy to lower ammonia and avoid hepatic encephalopathy -Protonix for GERD, no signs of bleeding no indication for EGD at this point Infectious: -Persistent bacteremia/ fungemia - consider ESTRADA if needed per infectious disease to eval for endocarditis -ABX/ Antifungals per ID -Repeat blood cultures, with fungemia -Repeat blood cultures 1/2 MRSA -Initial blood cultures with 2/2 MRSA -MRSA in urine and blood with sensitivity to vancomycin and Linezolid Renal: -HD tunneled cath planned per surgery, appreciated -HD per nephrology -Likely hepatorenal syndrome as cause of renal failure -renal ultrasound ruled out obstruction -Scrotal US neg for mass of vascular abnormalities continue other home medications as able Disposition: Short and intermediate manager prognosis is guarded. Patient with hepatitis C , liver mass with mets to lung, cirrhosis, hepatic encephalopathy, portal vein thrombosis, acute renal failure, in the setting of MRSA resistant bacteremia and fungemia. Patient wishes all aggressive measures to be continued. Palliative care consult/ spiritual consult.
[2019-01-26] MEDS ORDERED: Midazolam HCl 2 mg/2 ml Vial ONE ×2 (14:50→17:46)
[2019-01-26] MEDS ORDERED: Ketamine 50 MG/ML (10ML VIAL) ONE ×2 (14:50→17:47)
[2019-01-26] MEDS ORDERED: Ondansetron HCl/PF 4 MG/2 ML Vial IVP PRN (18:43)
[2019-01-26] MEDS ORDERED: Promethazine HCl 25 MG/ML VIAL SLOW IVP PRN (18:43)
[2019-01-26] MEDS ORDERED: Promethazine HCl 25 MG/ML VIAL IM PRN (18:43)
--- NOTE | 2019-01-26 18:51 | RAD ---
PORTABLE CHEST: 01/26/19 HISTORY: Line placement. COMPARISON: 01/21/19 study. A left sided central line is present. Catheter tip overlies the superior vena cava/right atrium junct ion and a right sided Hemosplit catheter is seen also with the tip in this region. No pneumothorax. Heart size is enlarged. Pulmonary vessels are engorged. There is increased density in the right base suggesting some associated effusion. IMPRESSION: Line placement. No signs of pneumothorax. POS: [facility]
[2019-01-26] MEDS ORDERED: Warfarin Sodium 5 MG TAB PO SCH (19:00)
[2019-01-26 20:56] LABS: Hemoglobin 7.9 g/dL (14.0-18.0); Platelet Count 31 thou/uL (130-400)
[2019-01-27] MEDS: HumaLOG 300 UNITS/3 ML VIAL SC PRN ×2 (05:37→11:50)
[2019-01-27 07:14] LABS: Anion Gap 20 mmol/L (10-20); BUN (Urea Nitrogen) 77 mg/dL (8.4-25.7); Calc. Creatinine Clearance 21 mL/min (70-130); Calcium 8.6 mg/dL (7.8-10.44); Carbon Dioxide 21 mmol/L (22-29); Chloride 101 mmol/L (98-107); Estimated GFR-MDRD 12; Glucose 317 mg/dL (70-105); Potassium 4.8 mmol/L (3.5-5.1); Sodium 137 mmol/L (136-145)
--- NOTE | 2019-01-27 08:45 | PRG ---
DATE OF SERVICE: 01/27/2019 SUBJECTIVE: Patient was seen and examined at bedside and overnight events noted. Patient denies any shortness of breath or chest pain or palpitation. No history of nausea or vomiting or diarrhea or fever or chills or cramps. OBJECTIVE: GENERAL: This is a well-built male, in no apparent distress. VITAL SIGNS: Temperature 97.0. Heart rate 71. Respiratory rate 16. Blood pressure 130/54. HEENT: Atraumatic, normocephalic. Oral mucosa is moist NECK: Supple. CARDIOVASCULAR: S1, S2 heard. Rate and rhythm regular. RESPIRATORY: Clear to auscultation. GASTROINTESTINAL: Abdomen is soft. MUSCULOSKELETAL: No tenderness. No edema. DERMATOLOGIC: No skin rash. NEUROLOGIC: Alert and awake and oriented X3. No focal neurologic deficits. Moving all the extremities. PSYCHIATRIC: Mood and affect normal. LABORATORY DATA: Potassium 4.8, BUN is 77, creatinine is 5.05. ASSESSMENT AND PLAN: 1. Acute kidney injury on chronic kidney disease stage 3, secondary to hepatorenal syndrome, dialysis dependent, tolerating dialysis thus far. We will have dialysis today with fluid removal if tolerated. 2. Edema, we will remove fluid. 3. Hyponatremia, limit fluid intake. 4. Hepatorenal syndrome. 5. Anemia of chronic disease. 6. We will continue on dialysis as tolerated. Job ID: [id number]
[2019-01-27] MEDS: Insulin Glargine 18 UNITS in Pre-Filled Syringe 1 EACH SC SCH ×2 (09:32→21:20)
[2019-01-27] MEDS: Sodium Bicarbonate Tab 325 MG TAB PO SCH ×3 (09:32→22:25)
[2019-01-27] MEDS: HumaLOG 300 UNITS/3 ML VIAL SC SCH ×3 (09:32→17:22)
[2019-01-27] MEDS: Aspirin 81 mg Enteric Coated Tablet PO SCH (09:32)
[2019-01-27] MEDS: Pantoprazole 40 MG VIAL IVP SCH ×2 (09:32→21:14)
[2019-01-27] MEDS: Midodrine HCl 5 MG TAB PO SCH ×3 (09:32→22:25)
[2019-01-27] MEDS: Propranolol HCl 20 MG TAB PO SCH ×2 (09:32→21:12)
--- NOTE | 2019-01-27 10:45 | PRG ---
DATE OF SERVICE: 01/27/2019 SUBJECTIVE: He is in good spirits, had no acute complaints. PHYSICAL EXAMINATION: VITAL SIGNS: Temperature 97.0, pulse 73, blood pressure 109/58, O2 saturation 100%. HEENT: Unremarkable. NECK: No adenopathy or JVD. LUNGS: Clear anteriorly. CARDIAC: S1, S2. Regular. ABDOMEN: Soft and nontender. EXTREMITIES: Edematous throughout. LABORATORY DATA: Sodium 137, potassium 4.8, chloride 101, CO2 of 21, BUN 77, creatinine 5.1, glucose 317. ASSESSMENT: 1. Acute on chronic renal failure. 2. Decompensated cirrhosis. 3. Metastatic hepatocellular carcinoma. 4. Portal vein thrombosis. 5. Fungemia. PLAN: 1. Resume anticoagulation. 2. Need to monitor PT and INR. Job ID: [id number]
[2019-01-27] MEDS ORDERED: Heparin 1,000 UNITS/ML VIAL ONE (11:11)
--- NOTE | 2019-01-27 11:40 | PDOC.HOSPP ---
- Subjective Subjective: See And examined. Clinically unchanged. Patient has HD catheter placed by surgery. Being transition from heparin to Coumadin. Overall clinically improving. Breathing well on room air. Edema is stable without significant worsening or improvement. - Objective Vital Signs & Weight: Vital Signs (12 hours) Temp Pulse Resp Pulse Ox 01/27/19 10:46 97.1 F L 01/27/19 08:00 98 01/27/19 07:27 71 16 98 01/27/19 07:08 97.0 F L 01/27/19 04:00 98.4 F Weight Admit Weight 169 lb Weight 198 lb 6.656 oz Most Recent Monitor Data Heart Rate from ECG 75 NIBP 106/53 NIBP BP-Mean 70 Respiration from ECG 0 SpO2 96 I&O: 01/26/19 01/27/19 01/28/19 07:59 06:59 06:59 Intake Total Output Total Balance Result Diagrams: 01/26/19 20:38 01/27/19 05:18 Additional Labs: Accuchecks 01/27/19 01/27/19 01/26/19 10:03 05:27 21:46 POC Glucose 316 H 298 H 281 H 01/26/19 14:25 POC Glucose 291 H Radiology Reviewed by me: Yes Hospitalist ROS - Review of Systems All other systems reviewed; all pertinent +/- noted in HPI/Subj - Medication Medications: Active Medications Generic Name Dose Route Start Last Admin Trade Name Freq PRN Reason Stop Dose Admin Acetaminophen 650 mg 01/13/19 04:08 01/25/19 16:18 Tylenol PO 650 mg Q4H PRN Administration Headache/Fever/Mild Pain (1-3) Albuterol/Ipratropium 3 ml 01/18/19 20:49 01/20/19 04:08 Duoneb NEB 3 ml Q4H PRN Administration SOB &/or Wheezing Albuterol/Ipratropium 3 ml 01/19/19 01:00 01/27/19 07:27 Duoneb NEB 3 ml [id number] EAN Administration Aspirin 81 mg 01/15/19 09:00 01/27/19 09:32 Ecotrin PO 81 mg DAILY EAN Administration Epoetin Jose-epbx 10,000 unit 01/25/19 17:30 01/25/19 18:31 Retacrit IVP Not Given MoWeFr EAN Famotidine 20 mg 01/25/19 14:26 01/25/19 16:19 Pepcid PO 20 mg DAILYPRN PRN Administration Indigestion Heparin Sodium (Porcine) 0 units 01/22/19 17:30 01/24/19 21:07 Heparin 1,000 Units/Ml (10 Ml) SLOW IVP 3,800 units ASDIR EAN Administration Protocol Heparin Sodium/Dextrose 500 mls @ 0 mls/hr 01/22/19 17:30 01/25/19 05:09 Heparin 25,000 Units/D5w 500 Ml IVPB 500 mls INF EAN Administration Protocol Per Protocol Micafungin Sodium 100 mg/ 100 mls @ 100 mls/hr 01/23/19 11:00 01/26/19 10:21 Sodium Chloride IVPB 100 mls 1100 EAN Administration Octreotide Acetate 1,250 mcg/ 251.25 mls @ 10.05 mls/hr 01/23/19 21:30 23:18 Sodium Chloride IVPB 251.25 mls INF EAN Administration 50 MCG/HR Insulin Glargine 18 units/ 0.18 mls @ 1 mls/hr 01/26/19 09:00 01/27/19 09:32 Miscellaneous Medication SC 0.18 mls BID EAN Administration Insulin Human Lispro 0 units 01/13/19 04:12 01/27/19 05:37 Humalog SC 6 unit .MODERATE SLIDING SC PRN Administration Moderate Correctional Scale Insulin Human Lispro 6 units 01/13/19 08:00 01/27/19 09:32 Humalog SC 6 units TID-WM EAN Administration Lactulose 20 gm 01/26/19 15:00 01/27/19 09:32 Lactulose PO 20 gm TID EAN Administration Midodrine 12.5 mg 01/25/19 15:00 01/27/19 09:32 Proamatine PO 12.5 mg TID EAN Administration Pantoprazole Sodium 40 mg 01/25/19 21:00 01/27/19 09:32 Protonix IVP 40 mg Q12HR EAN Administration Phenol 180 ml 01/20/19 11:17 01/24/19 03:06 Chloraseptic [place] 180 Ml Bot PO 1 spr BIDPRN PRN Administration Sore Throat Propranolol HCl 20 mg 01/14/19 21:00 01/27/19 09:32 Inderal PO 20 mg BID EAN Administration Sodium Bicarbonate 325 mg 01/19/19 15:00 01/27/19 09:32 Bicarbonate, Sodium PO 325 mg TID EAN Administration Sodium Chloride 10 ml 01/13/19 21:00 01/27/19 09:33 Flush - Normal Saline IVF 10 ml Q12HR EAN Administration Sodium Chloride 10 ml 01/13/19 09:57 01/26/19 10:21 Flush - Normal Saline IVF 10 ml PRN PRN Administration Saline Flush - Exam General Appearance: awake alert Eye: PERRL ENT: normocephalic atraumatic, moist mucosa Neck: supple, symmetric, no lymphadenopathy Heart: no murmur, no gallops, no rubs Respiratory: CTAB, no wheezes, no ronchi Gastrointestinal: soft, non-tender, no guarding, no rigidity, distended Extremities - other findings: +4 LE edema, +2 UE edema Skin: no lesions, no rashes Neurological: cranial nerve grossly intact, no focal deficits Musculoskeletal: generalized weakness Psychiatric: normal affect, normal behavior Hosp A/P (1) Bacteremia due to Gram-positive bacteria Code(s): R78.81 - BACTEREMIA Status: Acute (2) DM type 2 (diabetes mellitus, type 2) Status: Chronic Qualifiers: Diabetes mellitus termite renewal inspector insulin use: with termite renewal inspector use Diabetes mellitus complication status: with hyperglycemia Qualified Code(s): E11.65 - Type 2 diabetes mellitus with hyperglycemia; Z79.4 - continuous churn buttermaker (current) use of insulin (3) Diabetes Code(s): E11.9 - TYPE 2 DIABETES MELLITUS WITHOUT COMPLICATIONS Status: Chronic (4) Hyponatremia Code(s): E87.1 - HYPO-OSMOLALITY AND HYPONATREMIA Status: Resolved (5) Liver cancer Code(s): C22.9 - MALIG NEOPLASM OF LIVER, NOT SPECIFIED PRIMARY OR SEC Status: Chronic (6) Sepsis Code(s): A41.9 - SEPSIS, UNSPECIFIED ORGANISM Status: Resolved Qualifiers: Sepsis type: methicillin susceptible Staphylococcus aureus Sepsis acute organ dysfunction status: without acute organ dysfunction Qualified Code(s): A41.01 - Sepsis due to Methicillin susceptible Staphylococcus aureus (7) Thrombocytopenia Code(s): D69.6 - THROMBOCYTOPENIA, UNSPECIFIED Status: Chronic (8) Cirrhosis of liver Code(s): K74.60 - UNSPECIFIED CIRRHOSIS OF LIVER Status: Chronic Qualifiers: Ascites presence: unspecified (9) Fungemia Code(s): B49 - UNSPECIFIED MYCOSIS Status: Acute - Plan Plan: IMCU, stable for med/ tel GI consultation, recommendations patient Pulm/ cc consultation, recommendations patient infectious disease consultation, recommendations patient nephrology consultation, recommendations appreciated oncology consultation, recommendations appreciated will need outpatient follow- up for liver mass Pulm status improved, no longer on O2 after fluid removed with HD GI: -Hep C, cirrhosis, liver mass, lung mets, portal vein thrombosis -portal vein thrombosis now shows thrombus - continue Heparin Drip after HD cath placed, transitioning to Coumadin -Continue Octreotide drip -Continue lactulose chronic therapy to lower ammonia and avoid hepatic encephalopathy -Protonix for GERD, no signs of bleeding, no indication for EGD at this point Infectious: -Persistent bacteremia/ fungemia - consider ESTRADA if needed per infectious disease to eval for endocarditis -ABX/ Antifungals per ID -Repeat blood cultures, with fungemia -Repeat blood cultures 1/2 MRSA -Initial blood cultures with 2/2 MRSA -MRSA in urine and blood with sensitivity to vancomycin and Linezolid Renal: -S/p HD tunneled cath per surgery, appreciated -HD per nephrology -Likely hepatorenal syndrome as cause of renal failure, though multiple contributing factors -renal ultrasound ruled out obstruction -Scrotal US neg for mass of vascular abnormalities continue other home medications as able Disposition: Short and termite renewal inspector prognosis is guarded. Patient with hepatitis C , liver mass with mets to lung, cirrhosis, hepatic encephalopathy, portal vein thrombosis, acute renal failure, in the setting of MRSA resistant bacteremia and fungemia. Patient wishes all aggressive measures to be continued. Palliative care consult/ spiritual consult.
[2019-01-27] MEDS: Micafungin 100 MG in Sodium Chloride 0.9% 100 ML IVPB SCH (11:52)
[2019-01-27] MEDS: Acetaminophen 325 MG TAB PO PRN (15:21)
--- NOTE | 2019-01-27 15:58 | PRG ---
DATE OF SERVICE: 01/27/2019 SUBJECTIVE: Mr. Thompson had no bowel movements yesterday, but has had three bowel movements today with lactulose. No nausea or vomiting. No abdominal pain. OBJECTIVE: VITAL SIGNS: Temperature 97.1, pulse 72, and blood pressure 94/76. GENERAL: He is in no acute distress. Alert and oriented x3. He does have slight asterixis. LUNGS: Clear to auscultation bilaterally. HEART: Regular rate and rhythm without murmur. ABDOMEN: Soft. Mildly distended without guarding or tenderness. Bowel sounds are present. EXTREMITIES: 2+ pitting lower extremity edema. LABORATORY DATA: White blood cell count 10.6, he had a hemoglobin last night at 7.9, platelets 31,000. INR 2.1. Creatinine 5.05. IMPRESSION: 1. Decompensated cirrhosis. 2. Metastatic hepatocellular carcinoma. 3. Methicillin-resistant Staphylococcus aureus bacteremia and Alise fungemia. 4. Portal vein thrombosis. 5. Hepatorenal syndrome with acute renal failure. His creatinine crept back up a little bit today. He has received dialysis yesterday. RECOMMENDATIONS: 1. Lactulose. 2. Anticoagulation for portal vein thrombosis. He is on warfarin for that. 3. He is on midodrine and octreotide. 4. Antibiotics per Infectious Disease. 5. Given his severe thrombocytopenia today, I will hold his aspirin. 6. Recheck labs in the morning. Job ID: [id number]
[2019-01-27] MEDS ORDERED: Warfarin Sodium 5 MG TAB PO SCH (17:00)
[2019-01-27] MEDS ORDERED: Clopidogrel Bisulfate 75 MG TAB ONE (20:55)
[2019-01-27] MEDS: DAPTOmycin 500 MG in Sodium Chloride 0.9% 100 ML IVPB SCH (22:26)
[2019-01-27] MEDS: Octreotide Acetate 1,250 MCG in Sodium Chloride 0.9% 250 ML 250 ML IVPB SCH (22:26)
[2019-01-28 05:08] LABS: INR-International Normal Ratio 2.6; Prothrombin Time 27.4 SEC (12.0-14.7)
[2019-01-28 05:15] LABS: Anion Gap 18 mmol/L (10-20); BUN (Urea Nitrogen) 51 mg/dL (8.4-25.7); Calc. Creatinine Clearance 29 mL/min (70-130); Calcium 8.3 mg/dL (7.8-10.44); Carbon Dioxide 23 mmol/L (22-29); Chloride 98 mmol/L (98-107); Estimated GFR-MDRD 17; Glucose 169 mg/dL (70-105); Sodium 135 mmol/L (136-145)
--- NOTE | 2019-01-28 09:04 | PRG ---
DATE OF SERVICE: 01/28/2019 SUBJECTIVE: He is sitting and looks to be doing well. No acute events overnight. OBJECTIVE: VITAL SIGNS: Temperature is 97.5, pulse 69, and blood pressure 109/49. HEENT: Unremarkable. NECK: No JVD. CHEST: Clear. CARDIAC: S1 and S2, regular. ABDOMEN: Soft. EXTREMITIES: No edema. LABORATORY DATA: Sodium 135, potassium 4, BUN 51, creatinine 3.7, and glucose 169. His INR is 2.6. ASSESSMENT: 1. Portal vein thrombosis. 2. Acute on chronic renal failure. 3. Cirrhosis of the liver. PLAN: 1. He can be transferred to the floor. 2. I will reduce his Coumadin dose. He probably will not need much Coumadin at all given his compromised liver status. Pulmonary will sign off. Please recall if further assistance needed. Please follow his INR closely. Job ID: [id number]
[2019-01-28 09:58] LABS: Hemoglobin 7.2 g/dL (14.0-18.0); Mean Corpuscular HGB CONC 32.1 g/dL (32.0-36.0); Mean Corpuscular Hemoglobin 27.1 pg (27.0-31.0); Mean Corpuscular Volume 84.5 fL (78.0-98.0); Mean Platelet Volume 9.9 fL (7.4-10.4); Platelet Count 19 thou/uL (130-400); RBC Distribution Width 18.9 % (11.5-14.5); Red Blood Cell (RBC) Count 2.64 mill/uL (4.70-6.10); White Blood Cell (WBC) Count 5.1 thou/uL (4.8-10.8)
[2019-01-28 10:20] LABS: #Lymphocytes 0.7 thou/uL (1.20-3.40); #Monocytes 0.2 thou/uL (0.11-0.59); #Neutrophils 4.2 thou/uL (1.40-6.50); %Eosinophils 0.4 % (0.0-10.0); %Lymphocytes 13.6 % (21.0-51.0); %Monocytes 4.5 % (0.0-10.0); %Neutrophils 81.5 % (42.0-75.0); Platelet Morphology Comment Appears Decreased
[2019-01-28] MEDS: Insulin Glargine 18 UNITS in Pre-Filled Syringe 1 EACH SC SCH ×2 (10:40→20:23)
[2019-01-28] MEDS: HumaLOG 300 UNITS/3 ML VIAL SC SCH ×3 (10:40→17:46)
[2019-01-28] MEDS: Midodrine HCl 5 MG TAB PO SCH ×2 (10:41→15:57)
[2019-01-28] MEDS: Pantoprazole 40 MG VIAL IVP SCH ×2 (10:42→20:22)
[2019-01-28] MEDS: Sodium Bicarbonate Tab 325 MG TAB PO SCH ×3 (10:43→20:22)
[2019-01-28] MEDS: Propranolol HCl 20 MG TAB PO SCH ×2 (10:43→21:43)
[2019-01-28] MEDS: Acetaminophen 325 MG TAB PO PRN ×2 (10:44→20:23)
[2019-01-28] MEDS: Micafungin 100 MG in Sodium Chloride 0.9% 100 ML IVPB SCH (10:56)
--- NOTE | 2019-01-28 11:18 | PRG ---
DATE OF SERVICE: 01/28/2019 SUBJECTIVE: Patient was seen and examined at bedside and overnight events noted. Patient denies any shortness of breath or chest pain or palpitation. No history of nausea or vomiting or diarrhea or fever or chills or cramps. OBJECTIVE: GENERAL: This is a well-built male, in no apparent distress. VITAL SIGNS: Temperature 97.5. Heart rate . Respiratory rate 20. Blood pressure 107/40. HEENT: Atraumatic, normocephalic. Oral mucosa is moist NECK: Supple. CARDIOVASCULAR: S1, S2 heard. Rate and rhythm regular. RESPIRATORY: Clear to auscultation. GASTROINTESTINAL: Abdomen is soft. MUSCULOSKELETAL: No tenderness. No edema. DERMATOLOGIC: No skin rash. NEUROLOGIC: Alert and awake and oriented X3. No focal neurologic deficits. Moving all the extremities. PSYCHIATRIC: Mood and affect normal. LABORATORY DATA: Potassium is 4.0, BUN is 51, creatinine is 3.7. ASSESSMENT AND PLAN: 1. Acute kidney injury on chronic kidney stage 3, dialysis dependent. He is not able to have any ultrafiltration with dialysis. 2. Edema, we will remove fluid dialysis as tolerated. 3. Hepatorenal syndrome. 4. Anemia. 5. Hyponatremia. 6. Prognosis, guarded. Not able to have fluid removal with dialysis. We will attempt albumin. Continue dialysis as tolerated. Job ID: [id number]
--- NOTE | 2019-01-28 13:24 | PDOC.HOSPP ---
- Subjective Subjective: Seen and examined. Clinically improved. No overnight events. Patient breathing well. Less edema in the hands and legs. Abdomen still with bloating and distention. No overt bleeding or black in stools. - Objective Vital Signs & Weight: Vital Signs (12 hours) Temp Pulse Resp Pulse Ox 01/28/19 11:12 97.3 F L 01/28/19 08:00 100 01/28/19 07:44 77 15 01/28/19 07:19 97.5 F L 01/28/19 04:00 97.4 F L Weight Admit Weight 169 lb Weight 200 lb 12.8 oz Most Recent Monitor Data Heart Rate from ECG 71 NIBP 97/43 NIBP BP-Mean 61 Respiration from ECG 0 SpO2 100 I&O: 01/27/19 01/28/19 01/29/19 06:59 06:59 06:59 Intake Total 1505 Output Total 450 Balance 1055 Result Diagrams: 01/28/19 09:29 01/28/19 04:53 Additional Labs: Accuchecks 01/28/19 01/28/19 01/27/19 11:08 04:56 21:20 POC Glucose 208 H 181 H 106 01/27/19 16:11 POC Glucose 215 H Radiology Reviewed by me: Yes Hospitalist ROS - Review of Systems All other systems reviewed; all pertinent +/- noted in HPI/Subj - Medication Medications: Active Medications Generic Name Dose Route Start Last Admin Trade Name Freq PRN Reason Stop Dose Admin Acetaminophen 650 mg 01/13/19 04:08 01/28/19 10:44 Tylenol PO 650 mg Q4H PRN Administration Headache/Fever/Mild Pain (1-3) Albuterol/Ipratropium 3 ml 01/18/19 20:49 01/20/19 04:08 Duoneb NEB 3 ml Q4H PRN Administration SOB &/or Wheezing Albuterol/Ipratropium 3 ml 01/19/19 01:00 01/28/19 07:44 Duoneb NEB 3 ml [id number] EAN Administration Epoetin Jose-epbx 10,000 unit 01/25/19 17:30 01/25/19 18:31 Retacrit IVP Not Given MoWeFr EAN Famotidine 20 mg 01/25/19 14:26 01/25/19 16:19 Pepcid PO 20 mg DAILYPRN PRN Administration Indigestion Heparin Sodium (Porcine) 0 units 01/22/19 17:30 01/24/19 21:07 Heparin 1,000 Units/Ml (10 Ml) SLOW IVP 3,800 units ASDIR EAN Administration Protocol Heparin Sodium/Dextrose 500 mls @ 0 mls/hr 01/22/19 17:30 01/25/19 05:09 Heparin 25,000 Units/D5w 500 Ml IVPB 500 mls INF EAN Administration Protocol Per Protocol Micafungin Sodium 100 mg/ 100 mls @ 100 mls/hr 01/23/19 11:00 01/28/19 10:56 Sodium Chloride IVPB 100 mls 1100 EAN Administration Octreotide Acetate 1,250 mcg/ 251.25 mls @ 10.05 mls/hr 01/23/19 21:30 22:26 Sodium Chloride IVPB 251.25 mls INF EAN Administration 50 MCG/HR Daptomycin 500 mg/ Sodium 100 mls @ 200 mls/hr 01/25/19 15:45 01/27/19 22:26 Chloride IVPB 02/08/19 15:46 100 mls WILLCALL EAN Administration Insulin Glargine 18 units/ 0.18 mls @ 1 mls/hr 01/26/19 09:00 01/28/19 10:40 Miscellaneous Medication SC 0.18 mls BID EAN Administration Insulin Human Lispro 0 units 01/13/19 04:12 01/27/19 11:50 Humalog SC 8 unit .MODERATE SLIDING SC PRN Administration Moderate Correctional Scale Insulin Human Lispro 6 units 01/13/19 08:00 01/28/19 12:02 Humalog SC Not Given TID-WM EAN Lactulose 20 gm 01/26/19 15:00 01/28/19 10:40 Lactulose PO Not Given TID EAN Midodrine 12.5 mg 01/25/19 15:00 01/28/19 10:41 Proamatine PO 12.5 mg TID EAN Administration Pantoprazole Sodium 40 mg 01/25/19 21:00 01/28/19 10:42 Protonix IVP 40 mg Q12HR EAN Administration Phenol 180 ml 01/20/19 11:17 01/24/19 03:06 Chlorase[address] [place] 180 Ml Bot PO 1 spr BIDPRN PRN Administration Sore Throat Propranolol HCl 20 mg 01/14/19 21:00 01/28/19 10:43 Inderal PO 20 mg BID EAN Administration Sodium Bicarbonate 325 mg 01/19/19 15:00 01/28/19 10:43 Bicarbonate, Sodium PO 325 mg TID EAN Administration Sodium Chloride 10 ml 01/13/19 21:00 01/28/19 10:44 Flush - Normal Saline IVF 10 ml Q12HR EAN Administration Sodium Chloride 10 ml 01/13/19 09:57 01/26/19 10:21 Flush - Normal Saline IVF 10 ml PRN PRN Administration Saline Flush - Exam General Appearance: NAD Eye: PERRL, anicteric sclera ENT: normocephalic atraumatic, moist mucosa Neck: supple, symmetric, no lymphadenopathy Heart: RRR, no murmur, no gallops, no rubs Respiratory: CTAB, no wheezes, no rales Gastrointestinal: soft, non-tender, normal bowel sounds, no guarding, no rigidity Extremities: 2+ LE edema Extremities - other findings: 1+ UE edema Skin: no lesions, no rashes Neurological: cranial nerve grossly intact, no weakness Musculoskeletal: generalized weakness Psychiatric: normal affect, A&O x 3 Hosp A/P (1) Bacteremia due to Gram-positive bacteria Code(s): R78.81 - BACTEREMIA Status: Acute (2) DM type 2 (diabetes mellitus, type 2) Status: Chronic Qualifiers: Diabetes mellitus terminal manager insulin use: with senior living use Diabetes mellitus complication status: with hyperglycemia Qualified Code(s): E11.65 - Type 2 diabetes mellitus with hyperglycemia; Z79.4 - terminal manager (current) use of insulin (3) Diabetes Code(s): E11.9 - TYPE 2 DIABETES MELLITUS WITHOUT COMPLICATIONS Status: Chronic (4) Hyponatremia Code(s): E87.1 - HYPO-OSMOLALITY AND HYPONATREMIA Status: Resolved (5) Liver cancer Code(s): C22.9 - MALIG NEOPLASM OF LIVER, NOT SPECIFIED PRIMARY OR SEC Status: Chronic (6) Sepsis Code(s): A41.9 - SEPSIS, UNSPECIFIED ORGANISM Status: Resolved Qualifiers: Sepsis type: methicillin susceptible Staphylococcus aureus Sepsis acute organ dysfunction status: without acute organ dysfunction Qualified Code(s): A41.01 - Sepsis due to Methicillin susceptible Staphylococcus aureus (7) Thrombocytopenia Code(s): D69.6 - THROMBOCYTOPENIA, UNSPECIFIED Status: Chronic (8) Cirrhosis of liver Code(s): K74.60 - UNSPECIFIED CIRRHOSIS OF LIVER Status: Chronic Qualifiers: Ascites presence: unspecified (9) Fungemia Code(s): B49 - UNSPECIFIED MYCOSIS Status: Acute - Plan Plan: IMCU, stable for med/ tel GI consultation, recommendations patient Pulm/ cc consultation, recommendations patient infectious disease consultation, recommendations patient nephrology consultation, recommendations appreciated oncology consultation, recommendations appreciated will need outpatient follow- up for liver mass Pulm status improved, no longer on O2 after fluid removed with HD GI: -Hep C, cirrhosis, liver mass, lung mets, portal vein thrombosis -portal vein thrombosis now shows thrombus - continue Heparin Drip after HD cath placed, transitioning to Coumadin -Continue Octreotide drip -Continue lactulose chronic therapy to lower ammonia and avoid hepatic encephalopathy -Protonix for GERD, no signs of bleeding, no indication for EGD at this point -Throbocytopenia - worse, no overt bleeding. Transfuse platelets if less than 15k, or 50k if develops bleeding -Anemia- worse, no overt bleeding. Transfuse PRBC if less than 7.0 Infectious: -Persistent bacteremia/ fungemia - consider ESTRADA if needed per infectious disease to eval for endocarditis -ABX/ Antifungals per ID -Repeat blood cultures, with fungemia -Repeat blood cultures 1/2 MRSA -Initial blood cultures with 2/2 MRSA -MRSA in urine and blood with sensitivity to vancomycin and Linezolid Renal: -S/p HD tunneled cath per surgery, appreciated -HD per nephrology -Likely hepatorenal syndrome as cause of renal failure, though multiple contributing factors -renal ultrasound ruled out obstruction -Scrotal US neg for mass of vascular abnormalities continue other home medications as able Disposition: Short and senior living prognosis is guarded. Patient with hepatitis C , liver mass with mets to lung, cirrhosis, hepatic encephalopathy, portal vein thrombosis, acute renal failure, in the setting of MRSA resistant bacteremia and fungemia. Patient wishes all aggressive measures to be continued. Palliative care consult/ spiritual consult.
[2019-01-28] MEDS: Warfarin Sodium 5 MG TAB PO SCH (16:00)
[2019-01-28] MEDS: EPOETIN ALFA-EPBX (ESRD) 10,000 UNIT/ML VIAL IVP SCH (17:46)
--- NOTE | 2019-01-28 18:49 | PRG ---
DATE OF SERVICE: 01/28/2019 REASON FOR CONSULTATION: Cirrhosis, portal vein thrombosis, and possible hepatorenal syndrome. SUBJECTIVE: Per the nursing staff today, the patient has been a little more somnolent, taking frequent naps throughout the day, but when he wakes up, he is appropriate and alert and oriented x3. He did have 2 bowel movements today that were semi-solid in consistency but nonbloody. He has not had any episodes of hematemesis, melena, or hematochezia. He currently denies any abdominal pain, and adds that his abdominal distention is improved, albeit unchanged. Otherwise, he denies any nausea, vomiting, fevers, chills, GI bleeding, or abdominal pain. OBJECTIVE: VITAL SIGNS: Temperature 97.3, pulse 71, blood pressure 92/38, respiratory rate 14, saturating 91% on room air. GENERAL: The patient was lying in bed, in no acute distress. Alert and oriented x4. CARDIOVASCULAR: Regular rate and rhythm. 3/6 systolic murmur best heard at the left lower sternal border. RESPIRATORY: Clear to auscultation bilaterally. ABDOMEN: Normoactive bowel sounds. Soft. Mild abdominal distention with no discernible shifting dullness. No tenderness to palpation. EXTREMITIES: 1+/2+ edema to the bilateral knees. LABORATORY DATA: CBC with a white blood cell count of 5.1, hemoglobin 7.2, hematocrit 22.3, and platelets 19. INR 2.6. Chemistry with a sodium of 135, potassium 4, chloride 98, CO2 of 23, BUN 51, creatinine 3.71, and glucose 169. IMAGING DATA: No current GI imaging is available for review. ASSESSMENT AND PLAN: The patient is a 53-year-old male with past medical history of diabetes, hypertension, chronic hepatitis C, hepatocellular carcinoma with metastatic disease to the lungs and cirrhosis, complicated by hepatic encephalopathy and now acute vein thrombosis, presenting with methicillin-resistant Staphylococcus aureus bacteremia, Alise fungemia, and acute kidney injury requiring hemodialysis. Acute portal vein thrombosis: The patient initially presented with increasing thrombosis within the portal system, consistent with acute portal vein thrombosis. He was subsequently placed on heparin therapy, had been responding well with no episodes of overt gastrointestinal bleeding. However, he has had a decreasing platelet count, which could be indicative of heparin-induced thrombocytopenia. He was subsequently transferred to Coumadin therapy yesterday with an elevated INR today of 2.6, indicating within therapeutic goal. Recommendations: We would continue anticoagulation with close monitoring of INR. Cirrhosis: The patient is presenting with a diagnosis of cirrhosis complicated by hepatocellular carcinoma with metastatic disease to the lungs and hepatic encephalopathy. Given the recent administration of Coumadin, an accurate MELD score can no longer be calculated, but based on his pre-Coumadin INR, his MELD score is approximately 32 carrying a 60% to 65% 90-day mortality. With the presence of metastatic HCC, he is not currently a transplant candidate and based on his renal function with dialysis, he is a very poor chemotherapy candidate for the HCC as well. Given the lack of response with midodrine, octreotide, and albumin, it seems at this point he is dialysis dependent, again making him a poor transplant candidate with what would appear to be both liver and kidney transplant needed for survival. Given all these aspects of his current clinical situation, his overall prognosis is poor. Recommendations: 1. We would continue to avoid any potentially hepatotoxic medications. 2. Palliative care should be pursued at this point. Acute kidney injury/possible hepatorenal syndrome: During the course of this hospitalization, the patient had increasing creatinine, indicative of worsening renal function after treatment of his methicillin-resistant Staphylococcus aureus bacteremia. He was subsequently placed on albumin, midodrine, and octreotide with no significant improvement in his renal function other than his intermittent bouts of dialysis. At this point, it appears that the patient is dialysis dependent with failure of medical management. Recommendations: We would defer to Nephrology Service for continued dialysis and albumin per their recommendations. In light of the patient's metastatic HCC and dialysis dependent renal dysfunction, the patient is an extremely poor transplant candidate. GI has nothing further to offer at this time other than current therapy and anticoagulation. Please call with any additional questions. Job ID: [id number]
[2019-01-29 02:31] VITALS: BP 91/46
[2019-01-29 05:33] LABS: Prothrombin Time 31.1 SEC (12.0-14.7)
[2019-01-29 05:34] LABS: #Monocytes 0.5 thou/uL (0.11-0.59); %Basophils 0.6 % (0.0-1.0); %Eosinophils 0.8 % (0.0-10.0); %Lymphocytes 17.6 % (21.0-51.0); %Monocytes 8.8 % (0.0-10.0); %Neutrophils 72.2 % (42.0-75.0); Hemoglobin 6.9 g/dL (14.0-18.0); Mean Corpuscular HGB CONC 33.1 g/dL (32.0-36.0); Mean Corpuscular Hemoglobin 27.7 pg (27.0-31.0); Mean Corpuscular Volume 83.7 fL (78.0-98.0); Mean Platelet Volume 11.4 fL (7.4-10.4); Platelet Count 17 thou/uL (130-400); RBC Distribution Width 19.2 % (11.5-14.5); Red Blood Cell (RBC) Count 2.49 mill/uL (4.70-6.10); White Blood Cell (WBC) Count 5.5 thou/uL (4.8-10.8)
[2019-01-29 06:00] LABS: Anion Gap 17 mmol/L (10-20); BUN (Urea Nitrogen) 72 mg/dL (8.4-25.7); Calc. Creatinine Clearance 22 mL/min (70-130); Calcium 8.5 mg/dL (7.8-10.44); Carbon Dioxide 23 mmol/L (22-29); Chloride 98 mmol/L (98-107); Estimated GFR-MDRD 12; Glucose 120 mg/dL (70-105); Potassium 4.1 mmol/L (3.5-5.1); Sodium 134 mmol/L (136-145)
[2019-01-29] MEDS: Propranolol HCl 20 MG TAB PO SCH ×2 (08:46→20:37)
[2019-01-29] MEDS: HumaLOG 300 UNITS/3 ML VIAL SC SCH ×3 (08:48→16:55)
[2019-01-29] MEDS: Insulin Glargine 18 UNITS in Pre-Filled Syringe 1 EACH SC SCH ×2 (08:48→20:36)
[2019-01-29] MEDS: Sodium Bicarbonate Tab 325 MG TAB PO SCH ×3 (08:49→20:30)
[2019-01-29] MEDS: Pantoprazole 40 MG VIAL IVP SCH ×2 (08:49→20:30)
[2019-01-29] MEDS ORDERED: Albumin 25% 100 ML ONE (10:35)
[2019-01-29] MEDS ORDERED: Heparin 10,000 UNITS/ 10 ML VIAL ONE (11:11)
[2019-01-29] MEDS: Albumin 25% 25 GM/100 ML BOT IVPB SCH (13:16)
[2019-01-29] MEDS: Micafungin 100 MG in Sodium Chloride 0.9% 100 ML IVPB SCH (13:26)
--- NOTE | 2019-01-29 13:27 | PRG ---
DATE OF SERVICE: 01/29/2019 SUBJECTIVE: Patient was seen and examined at bedside and overnight events noted. Patient denies any shortness of breath or chest pain or palpitation. No history of nausea or vomiting or diarrhea or fever or chills or cramps. OBJECTIVE: GENERAL: This is a well-built male, in no apparent distress. VITAL SIGNS: Afebrile, temperature 96.2, heart rate 73, respiratory rate 18, and blood pressure 93/42. HEENT: Atraumatic, normocephalic. Oral mucosa is moist NECK: Supple. CARDIOVASCULAR: S1, S2 heard. Rate and rhythm regular. RESPIRATORY: Clear to auscultation. GASTROINTESTINAL: Abdomen is soft. MUSCULOSKELETAL: No tenderness. No edema. DERMATOLOGIC: No skin rash. NEUROLOGIC: Alert and awake and oriented X3. No focal neurologic deficits. Moving all the extremities. PSYCHIATRIC: Mood and affect normal. LABORATORY DATA: Potassium 4.1, BUN is 72, and creatinine is 4.9. ASSESSMENT AND PLAN: 1. Acute kidney injury on chronic kidney disease stage 3, dialysis dependent, may be progressing to end-stage renal disease, dialysis is getting harder, especially to remove fluids given his hypotension. 2. Hypotension, limiting fluid removal with dialysis edema. 3. Fluid overload. 4. Hyponatremia. 5. Anemia. 6. Hepatorenal syndrome. 7. Prognosis, guarded. Visually not able to have dialysis done and with fluid removal. Job ID: [id number]
[2019-01-29 13:44] VITALS: BMI 30.2
--- NOTE | 2019-01-29 15:00 | PDOC.HOSPP ---
- Subjective Encounter Date: 01/29/19 Encounter Time: 09:40 Subjective: Pt seen for followup re: bacteremia. States he feels well. - Objective Vital Signs & Weight: Vital Signs (12 hours) Temp Pulse Resp Pulse Ox 01/29/19 13:53 73 15 99 01/29/19 11:34 96.2 F L 01/29/19 07:47 97.3 F L 01/29/19 07:40 71 17 01/29/19 07:30 99 01/29/19 03:21 97.2 F L Weight Admit Weight 169 lb Weight 198 lb 7 oz Most Recent Monitor Data Heart Rate from ECG 74 NIBP 105/48 NIBP BP-Mean 67 Respiration from ECG 12 SpO2 100 I&O: 01/28/19 01/29/19 01/30/19 06:59 06:59 06:59 Intake Total 1505 640 0 Output Total 450 0 Balance 1055 640 0 Result Diagrams: 01/29/19 05:20 01/29/19 05:20 Additional Labs: Accuchecks 01/29/19 01/28/19 01/28/19 10:41 20:24 16:43 POC Glucose 114 H 181 H 195 H Labs and MARs reviewed by me EKG Reviewed by me: Yes (Tele; NSR) Hospitalist ROS - Review of Systems Respiratory: denies: cough, shortness of breath, SOB with excertion, pleuritic pain, wheezing Cardiovascular: denies: chest pain, palpitations, orthopnea, paroxysmal noc. dyspnea, edema, light headedness - Medication Medications: Active Medications Generic Name Dose Route Start Last Admin Trade Name Freq PRN Reason Stop Dose Admin Acetaminophen 650 mg 01/13/19 04:08 01/28/19 20:23 Tylenol PO 650 mg Q4H PRN Administration Headache/Fever/Mild Pain (1-3) Albuterol/Ipratropium 3 ml 01/18/19 20:49 01/20/19 04:08 Duoneb NEB 3 ml Q4H PRN Administration SOB &/or Wheezing Albuterol/Ipratropium 3 ml 01/19/19 01:00 01/29/19 13:53 Duoneb NEB 3 ml [id number] EAN Administration Epoetin Jose-epbx 10,000 unit 01/25/19 17:30 01/28/19 17:46 Retacrit IVP Not Given MoWeFr EAN Famotidine 20 mg 01/25/19 14:26 01/25/19 16:19 Pepcid PO 20 mg DAILYPRN PRN Administration Indigestion Heparin Sodium (Porcine) 0 units 01/22/19 17:30 01/24/19 21:07 Heparin 1,000 Units/Ml (10 Ml) SLOW IVP 3,800 units ASDIR EAN Administration Protocol Heparin Sodium/Dextrose 500 mls @ 0 mls/hr 01/22/19 17:30 01/25/19 05:09 Heparin 25,000 Units/D5w 500 Ml IVPB 500 mls INF EAN Administration Protocol Per Protocol Micafungin Sodium 100 mg/ 100 mls @ 100 mls/hr 01/23/19 11:00 01/29/19 13:26 Sodium Chloride IVPB 100 mls 1100 EAN Administration Daptomycin 500 mg/ Sodium 100 mls @ 200 mls/hr 01/25/19 15:45 01/27/19 22:26 Chloride IVPB 02/08/19 15:46 100 mls WILLCALL EAN Administration Insulin Glargine 18 units/ 0.18 mls @ 1 mls/hr 01/26/19 09:00 01/29/19 08:48 Miscellaneous Medication SC 0.18 mls BID EAN Administration Insulin Human Lispro 0 units 01/13/19 04:12 01/27/19 11:50 Humalog SC 8 unit .MODERATE SLIDING SC PRN Administration Moderate Correctional Scale Insulin Human Lispro 6 units 01/13/19 08:00 01/29/19 12:07 Humalog SC Not Given TID-WM EAN Lactulose 20 gm 01/26/19 15:00 01/29/19 08:48 Lactulose PO 20 gm TID EAN Administration Pantoprazole Sodium 40 mg 01/25/19 21:00 01/29/19 08:49 Protonix IVP 40 mg Q12HR EAN Administration Phenol 180 ml 01/20/19 11:17 01/24/19 03:06 Chloraseptic [place] 180 Ml Bot PO 1 spr BIDPRN PRN Administration Sore Throat Propranolol HCl 20 mg 01/14/19 21:00 01/29/19 08:46 Inderal PO Not Given BID EAN Sodium Bicarbonate 325 mg 01/19/19 15:00 01/29/19 08:49 Bicarbonate, Sodium PO 325 mg TID EAN Administration Sodium Chloride 10 ml 01/13/19 21:00 01/29/19 08:50 Flush - Normal Saline IVF 10 ml Q12HR EAN Administration Sodium Chloride 10 ml 01/13/19 09:57 01/26/19 10:21 Flush - Normal Saline IVF 10 ml PRN PRN Administration Saline Flush Warfarin Sodium 1 mg 01/28/19 17:00 01/28/19 16:00 Coumadin PO 1 mg 1700 EAN Administration - Exam General - other findings: Obese Eye: scleral icterus ENT: no oropharyngeal lesions Neck: supple Heart: RRR Respiratory: CTAB Gastrointestinal: soft, non-tender Psychiatric: normal affect, normal behavior Hosp A/P (1) MRSA bacteremia Code(s): R78.81 - BACTEREMIA Status: Acute (2) ESRD on dialysis Code(s): N18.6 - END STAGE RENAL DISEASE; Z99.2 - DEPENDENCE ON RENAL DIALYSIS Status: Acute (3) Portal vein thrombosis Code(s): I81 - PORTAL VEIN THROMBOSIS Status: Acute (4) Hepatocellular carcinoma Code(s): C22.0 - LIVER CELL CARCINOMA Status: Acute (5) Thrombocytopenia Code(s): D69.6 - THROMBOCYTOPENIA, UNSPECIFIED Status: Chronic (6) DM type 2 (diabetes mellitus, type 2) Status: Chronic Qualifiers: Diabetes mellitus long-term insulin use: with exterminator termite use Diabetes mellitus complication status: with hyperglycemia Qualified Code(s): E11.65 - Type 2 diabetes mellitus with hyperglycemia; Z79.4 - [facility] (current) use of insulin - Plan continue antibiotics MRSA bacteremia, UTI. Fungemia. Continue Daptomycin and Micafungin. INR therapeutic, pt is off of heparin drip. Plts 17K, no evidence of bleeding. No evidence of tuberculosis on chest x-ray. Dialysis per nephrology service.
[2019-01-29] MEDS: Warfarin Sodium 5 MG TAB PO SCH (16:49)
[2019-01-29] MEDS: DAPTOmycin 500 MG in Sodium Chloride 0.9% 100 ML IVPB SCH (16:51)
[2019-01-29] MEDS: Warfarin Sodium 1 MG TAB PO SCH (16:56)
[2019-01-30] MEDS: oxyCODONE 5 MG TAB PO PRN ×4 (00:43→20:42)
[2019-01-30 05:53] LABS: INR-International Normal Ratio 3.2; Prothrombin Time 32.5 SEC (12.0-14.7)
[2019-01-30 06:13] LABS: Anion Gap 20 mmol/L (10-20); BUN (Urea Nitrogen) 59 mg/dL (8.4-25.7); Calc. Creatinine Clearance 25 mL/min (70-130); Calcium 8.6 mg/dL (7.8-10.44); Carbon Dioxide 22 mmol/L (22-29); Chloride 97 mmol/L (98-107); Estimated GFR-MDRD 15; Glucose 223 mg/dL (70-105); Potassium 4.7 mmol/L (3.5-5.1); Sodium 134 mmol/L (136-145)
[2019-01-30 08:27] LABS: #Lymphocytes 0.6 thou/uL (1.20-3.40); #Monocytes 0.3 thou/uL (0.11-0.59); #Neutrophils 7.3 thou/uL (1.40-6.50); %Basophils 0.1 % (0.0-1.0); %Eosinophils 0.2 % (0.0-10.0); %Lymphocytes 6.9 % (21.0-51.0); %Monocytes 4.1 % (0.0-10.0); %Neutrophils 88.7 % (42.0-75.0); Hemoglobin 7.6 g/dL (14.0-18.0); Mean Corpuscular HGB CONC 33.6 g/dL (32.0-36.0); Mean Corpuscular Hemoglobin 28.1 pg (27.0-31.0); Mean Corpuscular Volume 83.7 fL (78.0-98.0); Mean Platelet Volume 12.6 fL (7.4-10.4); Platelet Count 10 thou/uL (130-400); RBC Distribution Width 17.3 % (11.5-14.5); Red Blood Cell (RBC) Count 2.71 mill/uL (4.70-6.10); White Blood Cell (WBC) Count 8.4 thou/uL (4.8-10.8)
[2019-01-30 08:56] LABS: Elliptocytes SLIGHT = 2-5 cells (100X) (0-1/hpf); MDiff Complete? YES; Platelet Morphology Comment Appears Decreased; Polychromasia SLIGHT = 2-3 cells (100X) (0-2/hpf); Target Cells SLIGHT = 2-5 cells (100X) (0-1/hpf)
[2019-01-30] MEDS: HumaLOG 300 UNITS/3 ML VIAL SC SCH ×3 (09:50→17:20)
[2019-01-30] MEDS: Propranolol HCl 20 MG TAB PO SCH ×2 (09:51→21:45)
[2019-01-30] MEDS: Insulin Glargine 18 UNITS in Pre-Filled Syringe 1 EACH SC SCH ×2 (09:54→20:44)
[2019-01-30] MEDS: Pantoprazole 40 MG VIAL IVP SCH ×2 (09:55→20:42)
[2019-01-30] MEDS: Sodium Bicarbonate Tab 325 MG TAB PO SCH ×3 (09:58→20:42)
[2019-01-30] MEDS: Micafungin 100 MG in Sodium Chloride 0.9% 100 ML IVPB SCH (09:59)
--- NOTE | 2019-01-30 13:13 | PRG ---
DATE OF SERVICE: 01/30/2019 SUBJECTIVE: This is a 53-year-old gentleman, being seen for end-stage renal disease and multiorgan failure. The patient denied nausea, vomiting, or chest pain. OBJECTIVE: See above. The patient is awake, alert. VITAL SIGNS: Pulse 55, breathing 16, and blood pressure 106/47. GENERAL APPEARANCE AND MENTAL STATUS: Fair. HEAD/NECK: Normocephalic. Atraumatic. EYES: EOMI. No deformity. EARS: Clear. No ulcers. NOSE: Intact. No lesions. MOUTH: Clear. No discharge. THROAT: Clear. No exudate. LUNGS: Clear. No crackles. CARDIAC: S1, S2. No rub. ABDOMEN: Benign. Bowel sounds positive. GENITALIA/RECTUM: Gregorio absent. BACK/EXTREMITIES: Edema 0+. NEUROLOGICAL: Alert and motor intact. SKIN: LYMPHATICS: LABORATORY DATA: Labs reviewed. ASSESSMENT AND PLAN: 1. Chronic kidney disease, stage 6 with multiorgan failure. I would recommend hospice care. This was discussed with the patient and his family. 2. Liver failure. 3. Pancytopenia. Job ID: [id number]
--- NOTE | 2019-01-30 14:32 | PDOC.HOSPP ---
- Subjective Encounter Date: 01/30/19 Encounter Time: 12:27 Subjective: 53 y/o male, long term inmate with COPD, Liver cancer s/p partial liver recetion, hep C liver cirrhosis, and others admitted due to fever and chills associated with malaise and right hip pain. Was started on broad spectrum antibiotics and later found to have MRSA bacteremia with R sternoclavicular joint infection. Later developed SILVIO associated with anasarca now on HD. Also found to have portal vein thrombosis and fungemia. fairly stable. Awaiting discharge to [facility]. Geting IV antimicrobials. - Objective Vital Signs & Weight: Vital Signs (12 hours) Temp Pulse Resp Pulse Ox 01/30/19 13:49 81 15 01/30/19 11:36 99.0 F 01/30/19 07:56 97 01/30/19 07:15 97.9 F 01/30/19 07:06 99 01/30/19 07:02 81 15 99 Weight Admit Weight 169 lb Weight 197 lb 8.547 oz Most Recent Monitor Data Heart Rate from ECG 175 NIBP 109/54 NIBP BP-Mean 72 Respiration from ECG 24 SpO2 86 I&O: 01/29/19 01/30/19 01/31/19 06:59 06:59 06:59 Intake Total 640 1120 Output Total 0 175 Balance 640 945 Result Diagrams: 01/30/19 08:00 01/30/19 05:30 Additional Labs: Accuchecks 01/30/19 01/29/19 01/29/19 10:46 20:35 16:57 POC Glucose 229 H 192 H 118 H Hospitalist ROS - Medication Medications: Active Medications Generic Name Dose Route Start Last Admin Trade Name Freq PRN Reason Stop Dose Admin Acetaminophen 650 mg 01/13/19 04:08 01/28/19 20:23 Tylenol PO 650 mg Q4H PRN Administration Headache/Fever/Mild Pain (1-3) Albuterol/Ipratropium 3 ml 01/18/19 20:49 01/20/19 04:08 Duoneb NEB 3 ml Q4H PRN Administration SOB &/or Wheezing Albuterol/Ipratropium 3 ml 01/19/19 01:00 01/30/19 13:49 Duoneb NEB 3 ml [id number] EAN Administration Epoetin Jose-epbx 10,000 unit 01/25/19 17:30 01/28/19 17:46 Retacrit IVP Not Given MoWeFr [facility] Famotidine 20 mg 01/25/19 14:26 01/25/19 16:19 Pepcid PO 20 mg DAILYPRN PRN Administration Indigestion Heparin Sodium (Porcine) 0 units 01/22/19 17:30 01/24/19 21:07 Heparin 1,000 Units/Ml (10 Ml) SLOW IVP 3,800 units ASDIR EAN Administration Protocol Heparin Sodium/Dextrose 500 mls @ 0 mls/hr 01/22/19 17:30 01/25/19 05:09 Heparin 25,000 Units/D5w 500 Ml IVPB 500 mls INF EAN Administration Protocol Per Protocol Micafungin Sodium 100 mg/ 100 mls @ 100 mls/hr 01/23/19 11:00 01/30/19 09:59 Sodium Chloride IVPB 100 mls 1100 EAN Administration Daptomycin 500 mg/ Sodium 100 mls @ 200 mls/hr 01/25/19 15:45 01/29/19 16:51 Chloride IVPB 02/08/19 15:46 100 mls WILLCALL EAN Administration Insulin Glargine 18 units/ 0.18 mls @ 1 mls/hr 01/26/19 09:00 01/30/19 09:54 Miscellaneous Medication SC 0.18 mls BID EAN Administration Insulin Human Lispro 0 units 01/13/19 04:12 01/27/19 11:50 Humalog SC 8 unit .MODERATE SLIDING SC PRN Administration Moderate Correctional Scale Insulin Human Lispro 6 units 01/13/19 08:00 01/30/19 11:16 Humalog SC Not Given TID[facility] Lactulose 20 gm 01/26/19 15:00 01/30/19 09:51 Lactulose PO Not Given TID [facility] Oxycodone HCl 5 mg 01/27/19 15:14 01/30/19 10:34 Oxycodone Ir PO 5 mg Q4H PRN Administration Moderate to Severe Pain (6-10) Pantoprazole Sodium 40 mg 01/25/19 21:00 01/30/19 09:55 Protonix IVP 40 mg Q12HR EAN Administration Phenol 180 ml 01/20/19 11:17 01/24/19 03:06 Chloraseptic [place] 180 Ml Bot PO 1 spr BIDPRN PRN Administration Sore Throat Propranolol HCl 20 mg 01/14/19 21:00 01/30/19 09:51 Inderal PO Not Given BID EAN Sodium Bicarbonate 325 mg 01/19/19 15:00 01/30/19 09:58 Bicarbonate, Sodium PO 325 mg TID EAN Administration Sodium Chloride 10 ml 01/13/19 21:00 01/30/19 09:59 Flush - Normal Saline IVF 10 ml Q12HR EAN Administration Sodium Chloride 10 ml 01/13/19 09:57 01/26/19 10:21 Flush - Normal Saline IVF 10 ml PRN PRN Administration Saline Flush Warfarin Sodium 1 mg 01/29/19 17:00 01/29/19 16:56 Coumadin PO Not Given 1700 EAN - Exam General Appearance: awake alert ENT: normocephalic atraumatic Neck: supple Heart: RRR Respiratory: no wheezes, no ronchi Respiratory - other findings: fair air entry bilaterally Gastrointestinal: soft, non-distended, normal bowel sounds Extremities - other findings: moderate bilateral leg edema Neurological: cranial nerve grossly intact, no focal deficits Psychiatric: A&O x 3 Hosp A/P (1) MRSA bacteremia Code(s): R78.81 - BACTEREMIA Status: Acute (2) Fungemia Code(s): B49 - UNSPECIFIED MYCOSIS Status: Acute (3) Portal vein thrombosis Code(s): I81 - PORTAL VEIN THROMBOSIS Status: Acute (4) Sepsis Code(s): A41.9 - SEPSIS, UNSPECIFIED ORGANISM Status: Resolved Qualifiers: Sepsis type: methicillin susceptible Staphylococcus aureus Sepsis acute organ dysfunction status: without acute organ dysfunction Qualified Code(s): A41.01 - Sepsis due to Methicillin susceptible Staphylococcus aureus (5) Hepatorenal syndrome Code(s): K76.7 - HEPATORENAL SYNDROME Status: Acute (6) Anasarca Code(s): R60.1 - GENERALIZED EDEMA Status: Acute (7) SILVIO (acute kidney injury) Code(s): N17.9 - ACUTE KIDNEY FAILURE, UNSPECIFIED Status: Acute (8) ESRD on dialysis Code(s): N18.6 - END STAGE RENAL DISEASE; Z99.2 - DEPENDENCE ON RENAL DIALYSIS Status: Acute (9) Hepatocellular carcinoma Code(s): C22.0 - LIVER CELL CARCINOMA Status: Acute (10) Cirrhosis of liver Code(s): K74.60 - UNSPECIFIED CIRRHOSIS OF LIVER Status: Chronic Qualifiers: Ascites presence: unspecified (11) DM type 2 (diabetes mellitus, type 2) Status: Chronic Qualifiers: Diabetes mellitus jail insulin use: with jail use Diabetes mellitus complication status: with hyperglycemia Qualified Code(s): E11.65 - Type 2 diabetes mellitus with hyperglycemia; Z79.4 - ferry terminal agent (current) use of insulin (12) Thrombocytopenia Code(s): D69.6 - THROMBOCYTOPENIA, UNSPECIFIED Status: Chronic (13) Hyponatremia Code(s): E87.1 - HYPO-OSMOLALITY AND HYPONATREMIA Status: Resolved - Plan Continue antimicrobials. Awaiting discharge to [facility] Had a family meeting with patient's , children and other relatives in attendances. We went over medical problems as well as care plan and prognosis. All questions were answered. I also reviewed code status with patient. He wants to be full code and spouse is the surrogate decision maker.
[2019-01-30] MEDS: Warfarin Sodium 1 MG TAB PO SCH (17:20)
[2019-01-30] MEDS: HumaLOG 300 UNITS/3 ML VIAL SC PRN (20:44)
[2019-01-31] MEDS: oxyCODONE 5 MG TAB PO PRN (00:40)
[2019-01-31 03:00] LABS: Prothrombin Time 39.2 SEC (12.0-14.7)
[2019-01-31 03:02] LABS: INR-International Normal Ratio 4.1
[2019-01-31 03:20] LABS: Anion Gap 29 mmol/L (10-20); BUN (Urea Nitrogen) 80 mg/dL (8.4-25.7); Calc. Creatinine Clearance 18 mL/min (70-130); Calcium 9.3 mg/dL (7.8-10.44); Carbon Dioxide 13 mmol/L (22-29); Chloride 96 mmol/L (98-107); Estimated GFR-MDRD 10; Glucose 203 mg/dL (70-105); Potassium 5.4 mmol/L (3.5-5.1); Sodium 133 mmol/L (136-145)
[2019-01-31 03:36] VITALS: TEMP 98.3
[2019-01-31] MEDS: Morphine 10 MG/ML VIAL SLOW IVP PRN ×2 (09:44→10:54)
[2019-01-31] MEDS: EPOETIN ALFA-EPBX (ESRD) 10,000 UNIT/ML VIAL IVP SCH (09:58)
[2019-01-31] MEDS: Insulin Glargine 18 UNITS in Pre-Filled Syringe 1 EACH SC SCH (09:58)
[2019-01-31] MEDS: HumaLOG 300 UNITS/3 ML VIAL SC SCH ×2 (09:58→11:41)
[2019-01-31] MEDS: Propranolol HCl 20 MG TAB PO SCH (09:59)
[2019-01-31] MEDS: Sodium Bicarbonate Tab 325 MG TAB PO SCH (09:59)
[2019-01-31] MEDS: Pantoprazole 40 MG VIAL IVP SCH (09:59)
[2019-01-31] MEDS: Morphine 4 MG/ML VIAL ONE ×2 (10:00→10:11)
[2019-01-31] MEDS: Micafungin 100 MG in Sodium Chloride 0.9% 100 ML IVPB SCH (10:11)
--- NOTE | 2019-01-31 13:25 | PDOC.HOSPP ---
- Subjective Encounter Date: 01/31/19 Encounter Time: 10:23 Subjective: 53 y/o male, shelter inmate with COPD, Liver cancer s/p partial liver recetion, hep C liver cirrhosis, and others admitted due to fever and chills associated with malaise and right hip pain. Was started on broad spectrum antibiotics and later found to have MRSA bacteremia with R sternoclavicular joint infection. Later developed SILVIO associated with anasarca now on HD. Also found to have portal vein thrombosis and fungemia. Developed AMS last night associated with moaning. Later developed respiratory distress and hypotension. Was transfered to ICU. Was made DNR and comfort care subsequently. - Objective Vital Signs & Weight: Vital Signs (12 hours) Temp Pulse Resp Pulse Ox 01/31/19 07:13 98 01/31/19 07:10 90 23 H 99 01/31/19 03:36 98.3 F Weight Admit Weight 169 lb Weight 200 lb 2.876 oz Most Recent Monitor Data Heart Rate from ECG 77 NIBP 71/46 NIBP BP-Mean 54 Respiration from ECG 19 SpO2 100 I&O: 01/30/19 01/31/19 02/01/19 06:59 06:59 06:59 Intake Total 1120 1370 Output Total 175 0 Balance 945 1370 Result Diagrams: 01/30/19 08:00 01/31/19 02:45 Additional Labs: Accuchecks 01/31/19 01/31/19 01/30/19 06:10 02:39 20:29 POC Glucose 127 H 208 H 266 H 01/30/19 16:54 POC Glucose 287 H Hospitalist ROS - Medication Medications: Active Medications Generic Name Dose Route Start Last Admin Trade Name Freq PRN Reason Stop Dose Admin Acetaminophen 650 mg 01/13/19 04:08 01/28/19 20:23 Tylenol PO 650 mg Q4H PRN Administration Headache/Fever/Mild Pain (1-3) Albuterol/Ipratropium 3 ml 01/18/19 20:49 01/20/19 04:08 Duoneb NEB 3 ml Q4H PRN Administration SOB &/or Wheezing Albuterol/Ipratropium 3 ml 01/19/19 01:00 01/31/19 07:10 Duoneb NEB 3 ml [id number] EAN Administration Epoetin Jose-epbx 10,000 unit 01/25/19 17:30 01/31/19 09:58 Retacrit IVP Not Given MoWeFr [facility] Famotidine 20 mg 01/25/19 14:26 01/25/19 16:19 Pepcid PO 20 mg DAILYPRN PRN Administration Indigestion Micafungin Sodium 100 mg/ 100 mls @ 100 mls/hr 01/23/19 11:00 01/31/19 10:11 Sodium Chloride IVPB Not Given 1100 EAN Daptomycin 500 mg/ Sodium 100 mls @ 200 mls/hr 01/25/19 15:45 01/29/19 16:51 Chloride IVPB 02/08/19 15:46 100 mls WILLCALL EAN Administration Insulin Glargine 18 units/ 0.18 mls @ 1 mls/hr 01/26/19 09:00 01/31/19 09:58 Miscellaneous Medication SC Not Given BID [facility] Insulin Human Lispro 0 units 01/13/19 04:12 01/30/19 20:44 Humalog SC 6 unit .MODERATE SLIDING SC PRN Administration Moderate Correctional Scale Insulin Human Lispro 6 units 01/13/19 08:00 01/31/19 11:41 Humalog SC Not Given TID-[facility] Lactulose 20 gm 01/26/19 15:00 01/31/19 09:59 Lactulose PO Not Given TID [facility] Morphine Sulfate 6 mg 01/31/19 09:52 01/31/19 10:54 Morphine SLOW IVP 6 mg Q1H PRN Administration Chest Pain Oxycodone HCl 5 mg 01/27/19 15:14 01/31/19 00:40 Oxycodone Ir PO 5 mg Q4H PRN Administration Moderate to Severe Pain (6-10) Pantoprazole Sodium 40 mg 01/25/19 21:00 01/31/19 09:59 Protonix IVP Not Given Q12HR [facility] Phenol 180 ml 01/20/19 11:17 01/24/19 03:06 Chloraseptic [place] 180 Ml Bot PO 1 spr BIDPRN PRN Administration Sore Throat Propranolol HCl 20 mg 01/14/19 21:00 01/31/19 09:59 Inderal PO Not Given BID [facility] Sodium Bicarbonate 325 mg 01/19/19 15:00 01/31/19 09:59 Bicarbonate, Sodium PO Not Given TID EAN Sodium Chloride 10 ml 01/13/19 21:00 01/31/19 09:59 Flush - Normal Saline IVF Not Given Q12HR EAN Sodium Chloride 10 ml 01/13/19 09:57 01/26/19 10:21 Flush - Normal Saline IVF 10 ml PRN PRN Administration Saline Flush Warfarin Sodium 1 mg 01/29/19 17:00 01/30/19 17:20 Coumadin PO Not Given 1700 EAN - Exam General - other findings: lethargic and in some distress. ENT: normocephalic atraumatic ENT - other findings: Nrb mask in place Respiratory - other findings: fair air entry with transmitted sound. work of breathing is increased Extremities: 2+ LE edema Neurological - other findings: lethargic Hosp A/P (1) MRSA bacteremia Code(s): R78.81 - BACTEREMIA Status: Acute (2) Fungemia Code(s): B49 - UNSPECIFIED MYCOSIS Status: Acute (3) Portal vein thrombosis Code(s): I81 - PORTAL VEIN THROMBOSIS Status: Acute (4) Sepsis Code(s): A41.9 - SEPSIS, UNSPECIFIED ORGANISM Status: Resolved Qualifiers: Sepsis type: methicillin susceptible Staphylococcus aureus Sepsis acute organ dysfunction status: without acute organ dysfunction Qualified Code(s): A41.01 - Sepsis due to Methicillin susceptible Staphylococcus aureus (5) Hepatorenal syndrome Code(s): K76.7 - HEPATORENAL SYNDROME Status: Acute (6) Anasarca Code(s): R60.1 - GENERALIZED EDEMA Status: Acute (7) SILVIO (acute kidney injury) Code(s): N17.9 - ACUTE KIDNEY FAILURE, UNSPECIFIED Status: Acute (8) ESRD on dialysis Code(s): N18.6 - END STAGE RENAL DISEASE; Z99.2 - DEPENDENCE ON RENAL DIALYSIS Status: Acute (9) Hepatocellular carcinoma Code(s): C22.0 - LIVER CELL CARCINOMA Status: Acute (10) Cirrhosis of liver Code(s): K74.60 - UNSPECIFIED CIRRHOSIS OF LIVER Status: Chronic Qualifiers: Ascites presence: unspecified (11) DM type 2 (diabetes mellitus, type 2) Status: Chronic Qualifiers: Diabetes mellitus long-term insulin use: with long-term use Diabetes mellitus complication status: with hyperglycemia Qualified Code(s): E11.65 - Type 2 diabetes mellitus with hyperglycemia; Z79.4 - snf (current) use of insulin (12) Thrombocytopenia Code(s): D69.6 - THROMBOCYTOPENIA, UNSPECIFIED Status: Chronic (13) Hyponatremia Code(s): E87.1 - HYPO-OSMOLALITY AND HYPONATREMIA Status: Resolved (14) Acute respiratory failure Code(s): J96.00 - ACUTE RESPIRATORY FAILURE, UNSP W HYPOXIA OR HYPERCAPNIA Status: Acute (15) Shock circulatory Code(s): R57.9 - SHOCK, UNSPECIFIED Status: Acute - Plan Now on comfort care. Continue morphine for pain and respiratory distress..
--- NOTE | 2019-01-31 14:14 | CON ---
DATE OF CONSULTATION: HISTORY OF PRESENT ILLNESS: Mr. Thompson was a 53-year-old male with multiorgan dysfunction. He was transferred emergently to the Critical Care Unit. I was consulted to intubate him. Quickly reviewed his medical records. Once I have reviewed his problem list, I called his and was able to discuss end of life issues. She felt that intubation and mechanical ventilation prolonged misery associated, that was not in his best interest, so he has made a do not resuscitate patient. PAST MEDICAL HISTORY: Remarkable for, 1. Metastatic hepatocellular carcinoma. 2. Chronic kidney disease. 3. Pancytopenia. 4. Chronic hepatitis C. 5. Hypertension. 6. Diabetes. 7. Hepatocellular carcinoma with metastatic disease to the lung, treated with oral chemotherapy and chemoembolization. 8. MRSA bacteremia this admission. 9. Hepatic vein clot/portal vein thrombosis diagnosed January 13. FAMILY HISTORY: Noncontributory. SOCIAL HISTORY: Noncontributory. REVIEW OF SYSTEMS: Not obtainable. He was obtunded. PHYSICAL EXAMINATION: GENERAL: He has been Ambu bagged. VITAL SIGNS: Blood pressure was in the 80s, heart rate was in the 90s, respiratory rate in the 20s. HEAD AND NECK: Exam was unremarkable. LUNGS: Remarkable for rhonchi. HEART: Regular rhythm. ABDOMEN: Soft. EXTREMITIES: Without edema. LABORATORY DATA: White count yesterday was 8.4, hemoglobin 7.6, platelets yesterday were 10,000. Sodium today 133, potassium 5.4, chloride 96, bicarb 13, BUN 80, creatinine 5.92. IMPRESSION: Multiorgan failure associated with metastatic liver cancer. I have recommended comfort care. The was in agreement. Morphine was given to the patient for comfort. The patient then subsequently . Job ID: [id number]
--- NOTE | 2019-02-01 14:25 | DIS ---
DATE OF ADMISSION: 01/13/2019 DATE OF DISCHARGE: 01/31/2019 DISCHARGE DIAGNOSES: 1. Metastatic hepatocellular carcinoma. 2. Sepsis. 3. Methicillin-resistant Staphylococcus aureus bacteremia. 4. Fungemia. 5. Portal vein thrombosis. 6. Hepatorenal syndrome. 7. Acute renal failure, on hemodialysis. 8. Anasarca. 9. Liver cirrhosis. 10. Type-2 diabetes mellitus. 11. Severe thrombocytopenia. 12. Hyponatremia. 13. Acute respiratory failure with hypoxia. 14. Circulatory shock. CONSULTS: 1. Pulmonary and Critical Care. 2. Nephrology. 3. Gastroenterology. 4. Hematology-Oncology. 5. Infectious disease. 6. General Surgery. 7. Cardiology. HOSPITAL COURSE: A 53-year-old male intermediate inmate with COPD; liver cancer, status post partial liver resection; hepatitis C; liver cirrhosis; and others; admitted due to fever and chills associated with malaise and right hip pain. Impression of sepsis was made and the patient was started on broad-spectrum antibiotics. Further evaluation revealed MRSA bacteremia with right sternocleidomastoid joint infection as well as fungemia. Antimicrobial therapy was adjusted by Infectious Diseases. Later on, the patient developed acute kidney injury with anasarca and was felt to have hepatorenal syndrome and was started on hemodialysis. Later on, anasarca worsened and further evaluation revealed portal vein thrombosis. This was later followed by acute mental status change of decreased responsiveness. The patient later developed respiratory distress, hypotension, as well as worsening metabolic encephalopathy. He was transferred to ICU. However, Pulmonary and Critical Care discussed with the patient's family and he was made do not resuscitate, given metastatic hepatocellular cancer associated with multiorgan failure. He was made do not resuscitate and comfort care was instituted and the patient later . TIME OF : 12:21 p.m. on 01/31/2019. Job ID: [id number]
== END 2019-01-31 12:21 | disposition expired | DRG 871 ==
LOC: ERS 23:48 → EEVIPCON 01-13 04:24 → T4-A 01-13 04:24 → IMCU/EMU 01-21 11:01 → CCU 01-31 09:27
PROVIDERS: ADMIT Internal Medicine; ATTEND Internal Medicine
PROC: 02HV33Z Insertion of Infusion Device into Superior Vena Cava, Percutaneous Approach (ICD-10-PCS; principal; 2019-01-16)
PROC: B518ZZA Fluoroscopy of Superior Vena Cava, Guidance (ICD-10-PCS; 2019-01-16)
PROC: 02HV33Z Insertion of Infusion Device into Superior Vena Cava, Percutaneous Approach (ICD-10-PCS; 2019-01-22)
PROC: 5A1D70Z Performance of Urinary Filtration, Intermittent, Less than 6 Hours Per Day (ICD-10-PCS; 2019-01-22)
PROC: B54NZZA Ultrasonography of Left Upper Extremity Veins, Guidance (ICD-10-PCS; 2019-01-22)
DX: A41.02 Sepsis due to Methicillin resistant Staphylococcus aureus (principal); J96.01 Acute respiratory failure with hypoxia; I81 Portal vein thrombosis; K76.7 Hepatorenal syndrome; G93.41 Metabolic encephalopathy; N18.6 End stage renal disease; N17.0 Acute kidney failure with tubular necrosis; C22.8 Malignant neoplasm of liver, primary, unspecified as to type; C78.00 Secondary malignant neoplasm of unspecified lung; E87.1 Hypo-osmolality and hyponatremia; E87.2 Acidosis; D61.818 Other pancytopenia; R18.8 Other ascites; B49 Unspecified mycosis; I12.0 Hypertensive chronic kidney disease with stage 5 chronic kidney disease or end stage renal disease; N39.0 Urinary tract infection, site not specified; M00.9 Pyogenic arthritis, unspecified; Z66 Do not resuscitate; E11.65 Type 2 diabetes mellitus with hyperglycemia; B18.2 Chronic viral hepatitis C; D69.59 Other secondary thrombocytopenia; D63.0 Anemia in neoplastic disease; J44.9 Chronic obstructive pulmonary disease, unspecified; E87.6 Hypokalemia; K74.60 Unspecified cirrhosis of liver; E11.22 Type 2 diabetes mellitus with diabetic chronic kidney disease; D63.1 Anemia in chronic kidney disease; K72.90 Hepatic failure, unspecified without coma; Z51.5 Encounter for palliative care; I86.1 Scrotal varices; N50.89 Other specified disorders of the male genital organs; E83.51 Hypocalcemia; E87.70 Fluid overload, unspecified; R57.8 Other shock; Z88.8 Allergy status to other drugs, medicaments and biological substances; Z79.82 Long term (current) use of aspirin; Z79.899 Other long term (current) drug therapy; Z79.4 Long term (current) use of insulin; Z87.891 Personal history of nicotine dependence; K21.9 Gastro-esophageal reflux disease without esophagitis
CPT/HCPCS: 36415; 36416; 36430; 36569; 71045; 72170; 74177; 76705; 76770; 76870; 80048; 80053; 80076; 80202; 81003; 81015; 82140; 82570; 82595; 82805; 83036; 83605; 83930; 83935; 84156; 84300; 84484; 85014; 85018; 85025; 85049; 85610; 85652; 85730; 86140; 86580; 86704; 86706; 86803; 86850; 86900; 86901; 87040; 87077; 87086; 87149; 87186; 87340; 87522; 90935; 93005; 93306; 94640; 96365; C1751; C1752; C1769; C9113; G0257; J0670; J0690; J0878; J1642; J1644; J1815; J1940; J2001; J2020; J2248; J2250; J2270; J2354; J2405; J2543; J2704; J3010; J3370; J3490; J7050; J7620; P9016; P9047; Q9966; S0028